=== PATIENT | male | born 1960 | race Caucasian/White ===

== ENCOUNTER 2020-02-20 13:16 | Outpatient (REF) | payer OTHER, SELFPAY ==
--- NOTE | 2020-02-20 13:24 | MR_ITS ---
EXAMINATION: MR SHOULDER WITH CONTRAST, LEFT CLINICAL INFORMATION: History of prior surgery in 2018. Status post multiple intra-articular steroid injections. Left shoulder pain with limited range of motion. COMPARISON: Left shoulder radiograph dated October 10, 2019. TECHNIQUE: MRI of the shoulder was performed following the intra-articular administration of a dilute gadolinium-containing solution (arthrogram) on a high-field scanner. FINDINGS: Rotator cuff: Metallic/susceptibility artifact from prior surgical intervention around the shoulder is noted. Within this limitation, there is apparent low-grade intrasubstance tearing at the footprint of the supraspinatus extending from the leading edge fibers (8:7-11/20) to the supraspinatus/infraspinatus junction. Subscapularis and teres minors tendons are intact. No rotator cuff muscle atrophy or fatty infiltration is identified. Labrum: Contrast imbibes into the superior labrum extending into the posterior superior labrum (7:10-12/20). Biceps: The long head biceps tendon is positioned within the bicipital groove, with the contour, course, caliber, and signal intensity within normal limits. Ligament/Capsule: No capsular thickening or pericapsular edema. Bone/Cartilage: No Hill Sachs or osseous Bankart lesion is identified. The bone marrow signal intensity is within normal limits. There is moderate grade cartilage loss of the inferior medial aspect humeral head articular cartilage. Mild thinning of the glenoid articular cartilage. Subchondral bone is preserved. Acromioclavicular joint: There is mild acromioclavicular hypertrophy. No subjacent marrow edema. Type II acromial morphology. No associated subacromial osteophyte formation is noted. Susceptibility/metallic artifact around the acromioclavicular joint reflect sequelae of prior acromial decompression. Miscellaneous: Intra-articular contrast distends the glenohumeral joint. No significant amount of subacromial/subdeltoid bursal fluid accumulation. Quadrilateral space, suprascapular notch and spinoglenoid notch are normal in appearance. MR/MR shoulder LT w con IMPRESSION: Left shoulder: 1. Low-grade intrasubstance tear at the footprint of the supraspinatus tendon fibers extending from the leading edge to the supraspinatus/infraspinatus junction. 2. Superior labral tear extending into the posterior superior labrum, SLAP IIB tear. 3. Mild glenohumeral joint chondrosis. 4. Postsurgical changes of acromial decompression. Mild acromioclavicular joint arthrosis. 5. Normal biceps tendon.
--- NOTE | 2020-02-20 13:27 | FL_ITS ---
EXAMINATION: XR ARTHROGRAM SHOULDER, LEFT CLINICAL INFORMATION: Recurrent left shoulder pain following previous surgery. COMPARISON: Left shoulder 10/10/2019 TECHNIQUE: Following explaining fluoroscopy-guided left shoulder injection procedure, benefits and risk, a written consent was obtained. Patient was placed supine on fluoroscopy table and anterior aspect left shoulder was cleaned and draped in usual sterile manner. 1% lidocaine was injected at the puncture site. A 22-gauge spinal needle was then inserted from the skin into the inferior aspect of left lateral joint space and 2 mL of nonionic contrast injected. Following confirmation of contrast in the joint, 0.1 mL of gadolinium was diluted with 10 mL of 1% % lidocaine and and saline combination was injected and needle withdrawn. Complete hemostasis achieved at puncture site. Sterile band aid applied post procedure Patient tolerated procedure extremely well and was sent to MRI for further imaging FINDINGS: On AP view the glenohumeral joint space is maintained. There is iodinated contrast seen within the joint space. The soft tissues are normal. FLUOROSCOPY TIME: 1.4 minutes DOSE AREA PRODUCT: 7.707 uGy-m2 (microgray-meter squared). IMAGES: 3. FL/FL arthrogram shoulder LT IMPRESSION: Successful fluoroscopy-guided left shoulder arthrogram performed with patient sent to MRI for further imaging.
== END 2020-02-20 13:17 | disposition home or self-care (01) ==
LOC: HO.XRAY 13:16
PROVIDERS: Visit Provider Orthopaedic Surgery
DX: M75.42 Impingement syndrome of left shoulder (principal)
CPT/HCPCS: 23350; 73040; 73222

== ENCOUNTER 2020-02-25 08:05 | Outpatient (REF) | payer MEDICAID, SELFPAY ==
--- NOTE | 2020-02-25 08:08 | CT_ITS ---
EXAMINATION: CT CHEST WITHOUT CONTRAST CLINICAL INFORMATION: Follow-up pulmonary nodule COMPARISON: Previous chest CT scans most recent November 2018 TECHNIQUE: Multidetector volumetric CT imaging of the chest was done. Axial MIP volume rendering provided. Sagittal and coronal reformatted images were obtained. This CT examination was performed using dose optimization techniques as appropriate, variously including the following: *Automated exposure control *Adjustment of mA and/or kV according to patient size (this includes techniques or standardized protocols for targeted exams where dose is matched to indication/reason for exam; i.e. extremities or head) *Use of iterative reconstruction technique DLP: 204 mGy-cm FINDINGS: EXECUTIVE ASSISTANT TO GENERAL COUNSEL: Unremarkable LUNGS: There is mild biapical pleural parenchymal scarring that is stable. The small pulmonary nodules are stable. The largest pulmonary nodule is a peripheral or subpleural 4 mm nodule in the apical posterior segment of the left upper lobe axial image 60. No new pulmonary nodule is seen. There is linear scarring or subsegmental atelectasis in the lingula. MEDIASTINUM: There is mild coronary artery calcification. The heart does not appear enlarged. There is no pericardial effusion. The thoracic aorta is normal in caliber. There is shotty mediastinal lymphadenopathy that is stable. No enlarged lymph nodes are seen. The visualized thyroid gland is unremarkable. PLEURA: There is no pleural effusion. No pleural mass or thickening. AXILLA: No lymphadenopathy. UPPER ABDOMEN: There are several low-attenuation liver lesions that are stable, largest measuring 7 to 8 mm. There is diverticulosis of the colon. OSSEOUS STRUCTURES: There are mild degenerative changes of the spine. CT/CT chest wo con IMPRESSION: Stable small pulmonary nodules. Mild coronary artery calcification.
== END 2020-02-25 08:06 | disposition home or self-care (01) ==
LOC: HO.CT 08:05
PROVIDERS: PCP Internal Medicine; Visit Provider Internal Medicine
DX: R91.1 Solitary pulmonary nodule (principal)
CPT/HCPCS: 71250

== ENCOUNTER → 2020-02-27 13:20 | Outpatient (BNVA) | payer MEDICAID, SELFPAY | PROVIDERS: PCP Internal Medicine; Visit Provider Urology | DX: E29.1 Testicular hypofunction (principal) | CPT/HCPCS: 99202 ==

== ENCOUNTER 2020-02-27 14:22 | Outpatient (REF) | payer MEDICAID, SELFPAY ==
[2020-02-27 16:50] LABS: Albumin Level 4.3 g/dL (3.5-5.0)
[2020-02-27 17:19] LABS: Prostate Specific Antigen 2.13 ng/mL (<0.05-4.0)
[2020-02-28 06:17] LABS: Lutenizing Hormone 0.3 mIU/mL (1.5-9.3)
[2020-03-03 22:22] LABS: Estradiol Ultra Sensitive 43 pg/mL (< OR = 29)
[2020-03-04 15:32] LABS: Testosterone, Free 332.3 pg/mL (35.0-155.0); Testosterone, Total 1351 ng/dL (250-1100)
== END 2020-02-27 14:23 | disposition home or self-care (01) ==
LOC: HO.HMGCLDS 14:22
PROVIDERS: PCP Internal Medicine; Visit Provider Urology
DX: E29.1 Testicular hypofunction (principal); Z12.5 Encounter for screening for malignant neoplasm of prostate
CPT/HCPCS: 36415; 82040; 82670; 83002; 84153; 84402; 84403

== ENCOUNTER → 2020-03-18 08:32 | Outpatient (BNVA) | payer MEDICAID, SELFPAY | PROVIDERS: Visit Provider Orthopaedic Surgery | DX: M75.42 Impingement syndrome of left shoulder (principal); S43.432D Superior glenoid labrum lesion of left shoulder, subsequent encounter | CPT/HCPCS: 99212 ==

== ENCOUNTER → 2020-03-19 11:35 | Outpatient (BNVA) | payer MEDICAID, SELFPAY | PROVIDERS: Visit Provider Urology ==

== ENCOUNTER → 2020-05-02 08:44 | Outpatient (BNVA) | payer OTHER, SELFPAY | PROVIDERS: PCP Internal Medicine; Visit Provider Physician Assistant | DX: M75.42 Impingement syndrome of left shoulder (principal) | CPT/HCPCS: 99212 ==

== ENCOUNTER 2020-11-07 15:12 | Outpatient (REF) | payer MEDICAID, SELFPAY ==
[2020-11-07 16:43] LABS: Hematocrit 46.7 % (42-52); Hemoglobin 15.7 g/dl (14.0-18.0); Mean Corpuscular HGB Conc 33.6 g/dl (31.0-36.0); Mean Corpuscular Hemoglobin 32.3 pg (27.0-33.0); Mean Corpuscular Volume 96.1 fL (80-98); Mean Platelet Volume 9.5 fL (9.4-12.4); Platelet Count 305 X10*3/uL (160-400); Red Blood Count 4.86 X10*6/uL (4.60-5.80); Red Cell Distribution Width 13.3 % (11.0-16.0); White Blood Count 7.7 X10*3/uL (4.8-10.8)
[2020-11-07 17:20] LABS: Prostate Specific Antigen 2.25 ng/mL (<0.05-4.0)
[2020-11-13 12:22] LABS: Testosterone, Total 500 ng/dL (250-1100)
[2020-11-13 19:17] LABS: Testosterone, Free 110.2 pg/mL (35.0-155.0); Testosterone, Total 510 ng/dL (250-1100)
== END 2020-11-07 15:13 | disposition home or self-care (01) ==
LOC: HO.HMGCLDS 15:12
PROVIDERS: PCP Internal Medicine; Visit Provider Urology
DX: Z12.5 Encounter for screening for malignant neoplasm of prostate (principal); E29.1 Testicular hypofunction; N13.8 Other obstructive and reflux uropathy; N40.1 Benign prostatic hyperplasia with lower urinary tract symptoms
CPT/HCPCS: 36415; 84153; 84402; 84403; 85027

== ENCOUNTER → 2020-11-27 11:52 | Outpatient (BNVA) | payer MEDICAID, SELFPAY | PROVIDERS: PCP Internal Medicine; Visit Provider Urology ==

== ENCOUNTER 2021-01-29 07:36 | Outpatient (REF) | payer MEDICAID, SELFPAY ==
[2021-01-29 07:56] LABS: Hematocrit 47.2 % (42.0-52.0); Hemoglobin 15.7 g/dl (14.0-18.0); Mean Corpuscular HGB Conc 33.3 g/dl (31.0-36.0); Mean Corpuscular Hemoglobin 31.8 pg (27.0-33.0); Mean Corpuscular Volume 95.7 fL (80.0-98.0); Mean Platelet Volume 8.6 fL (9.4-12.4); Platelet Count 301 X10*3/uL (160-400); Red Blood Count 4.93 X10*6/uL (4.60-5.80); Red Cell Distribution Width 12.5 % (11.0-16.0); White Blood Count 8.4 X10*3/uL (4.8-10.8)
[2021-02-01 20:41] LABS: Estradiol Ultra Sensitive 50 pg/mL (< OR = 29)
[2021-02-05 15:36] LABS: Testosterone, Free 253.4 pg/mL (35.0-155.0); Testosterone, Total 971 ng/dL (250-1100)
== END 2021-01-29 07:37 | disposition home or self-care (01) ==
LOC: HO.LAB 07:36
PROVIDERS: PCP Internal Medicine; Visit Provider Urology
DX: E29.1 Testicular hypofunction (principal)
CPT/HCPCS: 36415; 82670; 84402; 84403; 85027

== ENCOUNTER → 2021-02-03 14:53 | Outpatient (BNVA) | payer MEDICAID, SELFPAY | PROVIDERS: PCP Internal Medicine; Visit Provider Urology ==

== ENCOUNTER → 2021-02-12 08:54 | Outpatient (BNVA) | payer MEDICAID, SELFPAY | PROVIDERS: PCP Internal Medicine ==

== ENCOUNTER 2021-02-17 08:31 | Outpatient (REF) | payer MEDICAID, SELFPAY ==
--- NOTE | ~2021-02-17 | CT_ITS ---
EXAMINATION: CT CHEST WITHOUT CONTRAST CLINICAL INFORMATION: Follow-up pulmonary nodule. COMPARISON: Previous chest CT most recent February 2020. TECHNIQUE: Axial images through the chest without contrast. Sagittal and coronal reconstructions on the technologist workstation were performed. This CT examination was performed using dose optimization techniques as appropriate, variously including the following: *Automated exposure control *Adjustment of mA and/or kV according to patient size (this includes techniques or standardized protocols for targeted exams where dose is matched to indication/reason for exam; i.e. extremities or head) *Use of iterative reconstruction technique DLP: 209 mGy-cm FINDINGS: ASSISTANT SUPERINTENDENT: Unremarkable. LUNGS: There is mild biapical pleural parenchymal scarring that is stable. There is evidence of mild paraseptal emphysema. Small pulmonary nodules are stable. Largest pulmonary nodule measures 4 mm in the peripheral or subpleural left upper lobe axial image 75 series 5. MEDIASTINUM: There are small mediastinal lymph nodes that are stable. There is mild coronary artery calcification. The mediastinum is otherwise normal. PLEURA: There is no pleural effusion. No pleural mass or thickening. AXILLA: No lymphadenopathy. UPPER ABDOMEN: There are several small subcentimeter low-attenuation liver lesions that are stable. There may be diverticulosis of the colon. OSSEOUS STRUCTURES: There are degenerative changes of the spine. CT/CT chest wo con IMPRESSION: Stable small pulmonary nodules. Mild emphysema. Fleischner guidelines were followed.
== END 2021-02-17 08:32 | disposition home or self-care (01) ==
LOC: HO.CT 08:31
PROVIDERS: PCP Internal Medicine; Visit Provider Internal Medicine
DX: R91.1 Solitary pulmonary nodule (principal)
CPT/HCPCS: 71250

== ENCOUNTER → 2021-05-13 12:58 | Outpatient (BNVA) | payer MEDICAID, SELFPAY | PROVIDERS: PCP Internal Medicine; Visit Provider Urology | DX: Z13.89 Encounter for screening for other disorder (principal) ==

== ENCOUNTER 2021-08-07 10:48 | Outpatient (REF) | payer MEDICAID, SELFPAY ==
[2021-08-07 12:25] LABS: Hematocrit 46.5 % (42.0-52.0)
[2021-08-07 13:12] LABS: Prostate Specific Antigen 2.93 ng/mL (<0.05-4.0)
[2021-08-12 12:07] LABS: Testosterone, Total 781 ng/dL (250-1100)
== END 2021-08-07 10:49 | disposition home or self-care (01) ==
LOC: HO.LAB 10:48
PROVIDERS: PCP Internal Medicine; Visit Provider Urology
DX: Z12.5 Encounter for screening for malignant neoplasm of prostate (principal); E29.1 Testicular hypofunction; N13.8 Other obstructive and reflux uropathy; N40.1 Benign prostatic hyperplasia with lower urinary tract symptoms
CPT/HCPCS: 36415; 84153; 84403; 85014

== ENCOUNTER 2021-12-21 11:12 | Outpatient (REF) | payer MEDICAID, SELFPAY ==
--- NOTE | ~2021-12-21 | XR_ITS ---
EXAMINATION: XR HIP, LEFT CLINICAL INFORMATION: Left hip pain status post injury. COMPARISON: None TECHNIQUE: Two views of the left hip. FINDINGS: Subtle deformity in the left subcapital femoral neck is seen. The left hip joint and left hemipelvis are intact. The soft tissues are unremarkable. XR/XR hip LT min 2V IMPRESSION: Subtle deformity in the left subcapital femoral neck. This could be projectional, but acute, nondisplaced subcapital femoral neck fracture cannot be completely excluded. If suspicion for acute fracture remains high, short-term repeat left hip radiographs are recommended to assess for change as indicated.
== END 2021-12-21 11:13 | disposition home or self-care (01) ==
LOC: HO.HMGCX 11:12
PROVIDERS: PCP Internal Medicine; Visit Provider Internal Medicine
DX: M25.552 Pain in left hip (principal)
CPT/HCPCS: 73502

== ENCOUNTER 2021-12-22 07:34 | Outpatient (REF) | payer MEDICAID, SELFPAY ==
--- NOTE | ~2021-12-22 | CT_ITS ---
EXAMINATION: CT HIP WITHOUT CONTRAST, LEFT CLINICAL INFORMATION: Pain. Question fracture. COMPARISON: Left hip radiographs dated 12/21/2021. TECHNIQUE: Contiguous axial CT images of the left hip were obtained without contrast. Multiplanar reformats were provided and reviewed. This CT examination was performed using dose optimization techniques as appropriate, variously including the following: *Automated exposure control *Adjustment of mA and/or kV according to patient size (this includes techniques or standardized protocols for targeted exams where dose is matched to indication/reason for exam; i.e. extremities or head) *Use of iterative reconstruction technique DLP: 315 mGy-cm FINDINGS: No acute fracture or dislocation. No significant joint space narrowing. Tiny marginal osteophytes. No concerning lytic or blastic osseous lesion. Degenerative cystic change adjacent to the left sacroiliac joint. Mild subcutaneous stranding anterior to the left hip which could represent a soft tissue contusion. No abnormal soft tissue mass or fluid collection. Sigmoid diverticulosis without evidence of acute diverticulitis. Otherwise, the visualized intrapelvic structures are unremarkable. No large left hip joint effusion. The visualized muscles and tendons are grossly intact. CT/CT hip LT wo IV con IMPRESSION: 1. No acute fracture or dislocation. 2. Mild left hip arthrosis. 3. Mild subcutaneous stranding anterior to the left hip which could represent a soft tissue contusion. No hematoma formation. 4. Diverticulosis without evidence of acute diverticulitis.
== END 2021-12-22 07:35 | disposition home or self-care (01) ==
LOC: HO.CT 07:34
PROVIDERS: PCP Internal Medicine; Visit Provider Internal Medicine
DX: R22.31 Localized swelling, mass and lump, right upper limb (principal)
CPT/HCPCS: 73700

== ENCOUNTER 2022-02-04 11:22 | Outpatient (REF) | payer MEDICAID, SELFPAY ==
[2022-02-04 14:31] LABS: Hematocrit 44.9 % (42.0-52.0); Hemoglobin 14.8 g/dl (14.0-18.0); Mean Corpuscular Hemoglobin 31.8 pg (27.0-33.0); Mean Corpuscular Volume 96.6 fL (80.0-98.0); Mean Platelet Volume 9.4 fL (9.4-12.4); Platelet Count 283 X10*3/uL (160-400); Red Blood Count 4.65 X10*6/uL (4.60-5.80); Red Cell Distribution Width 13.2 % (11.0-16.0); White Blood Count 7.5 X10*3/uL (4.8-10.8)
[2022-02-04 14:52] LABS: Prostate Specific Antigen 2.72 ng/mL (<0.05-4.0)
[2022-02-10 12:29] LABS: Testosterone, Total 739 ng/dL (250-1100)
== END 2022-02-04 11:23 | disposition home or self-care (01) ==
LOC: HO.HMGCLDS 11:22
PROVIDERS: PCP Internal Medicine; Visit Provider Urology
DX: E29.1 Testicular hypofunction (principal)
CPT/HCPCS: 36415; 84153; 84403; 85027

== ENCOUNTER → 2022-02-19 08:19 | Outpatient (BNVA) | payer MEDICAID, SELFPAY | PROVIDERS: PCP Internal Medicine; Visit Provider Urology | DX: Z13.89 Encounter for screening for other disorder (principal) ==

== ENCOUNTER 2022-07-30 10:13 | Outpatient (REF) | payer MEDICAID, SELFPAY ==
[2022-08-02 20:24] LABS: TS Negative Control Passed; TS Panel A 0; TS Panel B 0; TS Positive Control Passed; TSpotTB Negative (Negative)
== END 2022-07-30 10:14 | disposition home or self-care (01) ==
LOC: HO.HMGCLDS 10:13
PROVIDERS: PCP Internal Medicine; Visit Provider Internal Medicine
DX: Z11.1 Encounter for screening for respiratory tuberculosis (principal)
CPT/HCPCS: 36415; 86481

== ENCOUNTER 2022-08-26 13:11 | Outpatient (REF) | payer MEDICAID, SELFPAY ==
[2022-08-26 16:52] LABS: Hematocrit 41.6 % (42.0-52.0); Mean Corpuscular HGB Conc 33.7 g/dl (31.0-36.0); Mean Corpuscular Hemoglobin 31.2 pg (27.0-33.0); Mean Corpuscular Volume 92.7 fL (80.0-98.0); Mean Platelet Volume 9.4 fL (9.4-12.4); Platelet Count 268 X10*3/uL (160-400); Red Blood Count 4.49 X10*6/uL (4.60-5.80); Red Cell Distribution Width 13.3 % (11.0-16.0); White Blood Count 6.2 X10*3/uL (4.8-10.8)
[2022-08-26 17:16] LABS: Prostate Specific Antigen 2.57 ng/mL (<0.05-4.0)
[2022-09-01 13:18] LABS: Testosterone, Total 794 ng/dL (250-1100)
== END 2022-08-26 13:12 | disposition home or self-care (01) ==
LOC: HO.HMGCLDS 13:11
PROVIDERS: PCP Internal Medicine; Visit Provider Urology
DX: Z12.5 Encounter for screening for malignant neoplasm of prostate (principal); E29.1 Testicular hypofunction
CPT/HCPCS: 36415; 84153; 84403; 85027

== ENCOUNTER 2022-09-08 08:10 | Outpatient (AMB) | payer MEDICAID, SELFPAY ==
--- NOTE | 2022-09-08 08:11 | A.OFFVIS_ITS ---
Intake Intake Visit Reasons: 6M CBC/PSA/Testo(set) Intake Note: Patient is present for Telephone LABS Urology Med: Sildenafil, Testosterone Antibiotic Allergy: none Blood Thinner: None Allergies No Known Allergies Allergy (Verified 09/08/22 08:12) seasonal Allergy (Unknown, Uncoded 09/08/22 08:12) unknown HPI HPI Comments History of Present Illness0 Details Logan is a male. He is a patient of Dr. Daniel. He is seen for the following urologic conditions - hypogonadism - erectile dysfunction Telemedicine evaluation 15 minute consultation [employer] suzanne Video attempted Six month review Lab work in range 6 month f/u Hypogonadism He presents today for further evaluation of complaints regarding hypogonadism - on treatment from his PCP Initial symptoms include erectile dysfunction Yes decreased libido Yes change in mood/depression Yes in muscle size/strength Yes increased fatigue/malaise Yes increased abdominal fat No tender breasts/gynecomastia No hair loss No osteopenia No The onset of symptoms has been gradual lb longstanding Erectile status nocturnal erections do occur but uses Viagra to supplement Associate conditions include chronic pain with opioid use No obstructive sleep apnea No CAD No diabetes No dyslipidemia No hypertension No obesity No stress - financial, family, employment No heavy alcohol or illicit drug use No He has been taking - none Laboratory results 02/02 T 2130 with LH 0.3 - 03/06 T 1300, LH 0.3, 11/04 T 510 F 110 P 2.2, 02/03 971 P 2.2, 08/05 781 2.9 46, 02/04 739, 09/05 794 2.6 Current therapy includes injectable injectable testosterone - 12/04 0.75 cc weekly, Tuesday Labs Response to therapy has been improved baseline symptoms Prior therapy includes injectable testosterone PFSH Medical History CKD (chronic kidney disease) stage 2, GFR 60-89 ml/min COPD (chronic obstructive pulmonary disease) History of meningitis Hypertension Hypogonadism in male Migraine PVC's (premature ventricular contractions) Surgical History History of repair of left rotator cuff History of shoulder surgery Hx of colonoscopy Family History Father Liver disease Mother HTN (hypertension) Heavy smoker Heart disease Social History Current occupational status: employed Current occupation: [employer] Review of Systems Const All systems reviewed & are unremarkable except as noted in HPI and below Reports no additional complaints Resp Reports no additional complaints GI Reports no additional complaints Reports as per HPI Musc Reports no additional complaints Physical Exam Telemedicine evaluation Appropriate responses Regular breathing rate and rhythm HEENT Head: Yes normal to inspection Ears: hearing grossly normal bilaterally Eyes General: appearance normal, both eyes and all related structures Neck Neck: Yes normal visual inspection Chest Chest palpation & inspection: normal inspection of the chest Resp Effort & Inspection: normal respiratory effort and able to speak in complete sentences Assessment & Plan Assessment & Plan (1) Erectile dysfunction due to arterial insufficiency: Code(s): N52.01 - Erectile dysfunction due to arterial insufficiency (2) Hypogonadism in male: Code(s): E29.1 - Testicular hypofunction Plan Six month follow-up lab work office visit Orders: Orders Prostate Specific Antigen 6 Months E29.1 - Testicular hypofunction Testosterone, Total 6 Months E29.1 - Testicular hypofunction Complete Blood Count no Diff 6 Months E29.1 - Testicular hypofunction Medications: Refilled testosterone cypionate (Depo-Testosterone) 140 mg (0.7 mL) subcut QWEEK 30 days 4 mL 5RF Patient Instructions: Imaging studies, laboratory and physical exam results were discussed and reviewed in detail. No major barriers to patient understanding were identified. An opportunity to ask questions regarding the treatment plan was provided. All questions were answered. The patient expressed understanding and agreement with the above treatment plan. The patient is aware they should contact our office by phone for worsening of their current condition or the appearance of new urologic symptoms. Compliance is encouraged with any medications and followup testing that is ordered. It is a privilege to participate in the urologic care of your patient. If you have any questions or concerns regarding treatment for the above conditions, or other urologic issues, please do not hesitate to contact me. The office telephone contact is [phone]. This note is constructed using voice recognition software. While every effort h as been made to ensure accuracy back tender pulp drier errors may have been included. Yours sincerely, Dr Diego Kennedy MD, [facility] - Urology Providers of Expert, Compassionate Care for the Genitourinary System Telehealth Telehealth Location of provider rendering services: practice address Location of patient: address on file Patient Identification confirmed using: Name, : Yes Telehealth method: video Patient verbally consented to treatment: Yes Patient verbally consented to billing insurance company: Yes Patient informed of any privacy concerns related to visit: Yes Coding Level of Care Code Tele Est Pt Level 3 (68052) Diagnoses Erectile dysfunction due to arterial insufficiency N52.01 Hypogonadism in male E29.1
== END 2022-09-08 09:07 | disposition home or self-care (01) ==
LOC: HO.HUSH 08:10
PROVIDERS: PCP Internal Medicine; Visit Provider Urology
DX: N52.01 Erectile dysfunction due to arterial insufficiency (principal); E29.1 Testicular hypofunction
CPT/HCPCS: 99213

== ENCOUNTER → 2022-09-08 08:10 | Outpatient (BNVA) | payer MEDICAID, SELFPAY | PROVIDERS: PCP Internal Medicine; Visit Provider Urology ==

== ENCOUNTER 2023-02-04 09:43 | Outpatient (AMB) | payer MEDICAID, SELFPAY ==
--- NOTE | 2023-02-04 10:03 | MHC.OFFVIS ---
Intake Intake Visit Reasons: LDCT [place] Allergies No Known Allergies Allergy (Verified 12/02/22 08:36) seasonal Allergy (Unknown, Uncoded 12/02/22 08:36) unknown Tobacco/Smoking Status Tobacco use type: Cigarette Cigarette Packs Per Day: 1 Years smoked: 37, smoked 1-1.5 ppd, quit 13 years prior Packs Per Year: 0 HPI HPI Comments History of Present Illness Details Logan is a pleasant 62 year old male, former smoker with a 49 PYH, quit 13 years ago. Patient has been smoking since age 16 for 33 years at 1- 1.5 ppd. Denies marijuana use. 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 Denies known family history of lung cancer. Denies personal history of cancers. Denies chest CT in last year. Last chest CT from 02/2021 revealed stable small pulmonary nodules and mild emphysema. Denies recent travel outside the [place]. Admits testing positive for COVID. Denies receiving COVID Vaccine. Denies fever, chills, chest pain, new cough, hemoptysis or unintentional weight loss. Lung Cancer Screening Questionnaire reviewed with patient by provider. Shared Decision Making Completed. Discussed in detail with patient, the risk versus benefit of LDCT screening. Patient in agreement of proceeding with scan. [facility] Medical History CKD (chronic kidney disease) stage 2, GFR 60-89 ml/min Hypertension PVC's (premature ventricular contractions) COPD (chronic obstructive pulmonary disease) History of meningitis Migraine Hypogonadism in male Surgical History (Updated 12/30/22 @ 12:51 by Petra Arora PA-C) History of colonoscopy History of repair of left rotator cuff History of repair of right rotator cuff Family History Father Liver disease Mother HTN (hypertension) Heavy smoker Heart disease Social History (System 12/02/22 @ 08:36 by Vijaya Farrar) Tobacco use type: Cigarette Cigarette Packs Per Day: 1 Years Smoked: 37, smoked 1-1.5 ppd, quit 13 years prior Current occupational status: employed Current occupation: [employer] Assessment & Plan Assessment & Plan (1) Personal history of tobacco use: Code(s): Z87.891 - Personal history of nicotine dependence Plan Shared decision-making visit completed today in office. This patient meets criteria for LDCT for lung cancer screening purposes and is asymptomatic. Offered smoking cessation. Patient has been scheduled for a low dose chest CT for screening purposes at [facility]. We discussed how the results will be obtained depending on CT findings. RADS 1 and RADS 2 will receive a letter with results and will follow up for annual LDCT. Patient informed they will be contacted at later date to schedule upcoming LDCT scan. RADS 3 and RADS 4 will receive a telephone call, or an office visit after reviewing case at our Lung Cancer Conference to determine when the next LDCT will be scheduled or further interventions that may be needed. Discussed importance of screening program and compliance with yearly LDCT scan as scheduled. Risks, benefits, and alternatives were discussed in detail and patient agrees to proceed. Risks discussed include but are not limited to: radiation exposure and possibility of additional intervention for benign disease. Benefits include detection of lung cancer at an early stage. A copy of today's visit and LDCT results will be sent to patient's PCP. Incidental findings on LDCT are PCP's responsibility. If there are incidental findings, our office will ensure that PCP office is aware of these findings. All questions were answered and patient is in agreement of plan. Coding Level of Care Code Lung Cancer Screening G0296 Diagnoses Personal history of tobacco use Z87.891
== END 2023-02-04 11:02 | disposition home or self-care (01) ==
PROVIDERS: PCP Internal Medicine; Visit Provider Nurse Practitioner Family
DX: Z87.891 Personal history of nicotine dependence (principal)
CPT/HCPCS: G0296

== ENCOUNTER 2023-02-04 10:15 | Outpatient (REF) | payer MEDICAID, SELFPAY | END 2023-02-04 10:16 | disposition home or self-care (01) | LOC: HO.CT 10:15 | PROVIDERS: PCP Internal Medicine; Visit Provider Nurse Practitioner Family | DX: Z12.2 Encounter for screening for malignant neoplasm of respiratory organs (principal); Z87.891 Personal history of nicotine dependence | CPT/HCPCS: 71271; G0296 ==

== ENCOUNTER → 2023-02-25 12:36 | Outpatient (REF) | payer MEDICAID, SELFPAY ==
--- NOTE | 2023-02-25 12:38 | CA_ITS ---
Transthoracic Echocardiogram Patient (Last, First, Middle): Logan Boland, Gender: Male Date of : 1960 Age: 62 Procedure Date: 02/25/2023 Procedure Type: Transthoracic Echocardiogram Location: OP Height: 180.34 cm Weight: 95.26 kg BSA: 2.15 m2 Heart Rate: bpm BP: 156 / 70 mmHg Park Interpretive Specialist: TO Referring MD: Eduardo Daniel MD Vessel Captain: Slava Garrido MD Symptoms: [facility] Study Quality: Fair ECG Rhythm: Sinus Conclusions: - 1. Normal LV ejection fraction of 55-60% with impaired relaxation filling pattern 2. Calcific aortic valve changes noted with normal cardiac valvular Doppler 3. No gross pericardial effusion 4. Upper limits of normal ascending aortic size Findings Left Ventricle Normal left ventricular size, thickness, and systolic function. The visually estimated ejection fraction is between 55-60%. Spectral Doppler is indicative of an impaired relaxation filling pattern. Peak GLS is -13.1%, which is moderately reduced. Right Ventricle Normal right ventricular cavity size and systolic function. Atria The left atrium is likely dilated. There is no evidence of interatrial shunt. The right atrium is normal in size. Aortic Valve There is mild calcification of the aortic valve. There is no aortic valve stenosis. The peak aortic gradient is 9 mmHg.The mean gradient is 4 mmHg. There is no aortic valve regurgitation. Mitral Valve Normal mitral valve structure and function. There is trace mitral valve regurgitation. There is no mitral valve stenosis. Pulmonic Valve The pulmonic valve is likely normal. Tricuspid Valve Normal tricuspid valve structure. Tricuspid regurgitation envelope is inadequate for calculation of right ventricular systolic pressure. Normal right atrial pressure. Great Vessels The pulmonary artery was not well visualized. Venous The inferior vena cava is normal in size and collapses greater than 50% with inspiration. Pericardium/Pleural There is no evidence of pericardial effusion. Measurements 2D Linear Measurements IVSd: 1.23 0.6-0.9/0.6-1.0 cm LVIDd: 4.71 3.9-5.3/4.2-5.9 cm LVIDd Index: 2.19 2.4-3.2/2.2-3.1 cm/m2 LVIDs: 3.13 2.0-3.6 cm LVPWd: 1.22 0.7-1.1 cm LA Diam: 4.10 2.7-3.8/3.0-4.0 cm LAIDs Index: 1.91 1.5-2.3 cm/m2 LV Mass: 319.64 67-162/88-224 g LV Mass Index: 148.67 43-95/49-115 g/m2 LVOT Diam: 2.40 3.0+(-)1.3 cm 2D Systolic Function EF 4C: 61.00 >55% EF 2C: 55.00 >55% EF BiP: 58.20 >55% Mitral Valve MV Pk E: 0.63 MV PK A: 0.65 MV Decel Time: 177.00 E/A: 1.00 E'Lateral: 5.77 E'Medial: 5.44 E/E' Med: 11.50 E/E' Lat: 10.80 PHT: 52.00 MVA PHT: 4.23 Decel [place]: 3.53 Aortic Valve AoV Pk Er[place]: 1.51 AoV Mn Erwin: 0.91 AoV VTI: 0.26 AoV Pk Grad: 9.00 Aov Mn Grad: 4.00 ELLIOTT Cont.VTI: 3.60 LVOT LVOT Pk [place]: 1.10 LVOT Mn Erwin: 0.75 LVOT VTI: 0.20 LVOT Pk Grad: 5.00 LVOT Mn Grad: 3.00 LVOT Diam: 2.40 LVOT Area: 4.52 Diastolic Function MV Pk E: 0.63 MV Pk A: 0.65 E/A: 1.00 E'Medial: 5.44 E/E' Med: 11.50 E' Laterial: 5.77 E/E' Lat: 10.80 Right Ventricle TAPSE (mm): 25.60 TVS' Erwin: 16.90 Great Vessels Aorta Sinus of Valsalva: 3.62 2.0-3.5 cm Ao Asc: 3.50 2.1-3.4 cm Ao Arch: 3.20 Updated in Other Vendor System with Status of Final Slava Garrido MD electronically signed on 02/25/2023 4:07:11 PM with status of Final
== END ==
LOC: HO.CARD 12:36
PROVIDERS: PCP Internal Medicine; Visit Provider Internal Medicine
DX: Z13.89 Encounter for screening for other disorder (principal)
CPT/HCPCS: 93306; 93356

== ENCOUNTER → 2023-02-25 12:38 | Outpatient (BNV) | payer MEDICAID, SELFPAY | PROVIDERS: PCP Internal Medicine; Visit Provider Internal Medicine Cardiovascular Disease | DX: R01.1 Cardiac murmur, unspecified (principal) | CPT/HCPCS: 93306 ==

== ENCOUNTER 2023-03-03 11:00 | Outpatient (REF) | payer MEDICAID, SELFPAY ==
[2023-03-03 13:29] LABS: Hematocrit 43.6 % (42.0-52.0); Hemoglobin 14.5 g/dl (14.0-18.0); Mean Corpuscular HGB Conc 33.3 g/dl (31.0-36.0); Mean Corpuscular Hemoglobin 30.3 pg (27.0-33.0); Mean Corpuscular Volume 91.2 fL (80.0-98.0); Mean Platelet Volume 9.3 fL (9.4-12.4); Platelet Count 271 X10*3/uL (160-400); Red Blood Count 4.78 X10*6/uL (4.60-5.80); Red Cell Distribution Width 14.2 % (11.0-16.0); White Blood Count 6.9 X10*3/uL (4.8-10.8)
[2023-03-03 14:03] LABS: Prostate Specific Antigen 4.48 ng/mL (<0.05-4.0)
[2023-03-07 13:59] LABS: Testosterone, Total 1234 ng/dL (250-1100)
== END 2023-03-03 11:01 | disposition home or self-care (01) ==
LOC: HO.HMGCLDS 11:00
PROVIDERS: PCP Internal Medicine; Visit Provider Urology
DX: E29.1 Testicular hypofunction (principal)
CPT/HCPCS: 36415; 84153; 84403; 85027

== ENCOUNTER 2023-03-15 09:57 | Outpatient (AMB) | payer MEDICAID, SELFPAY ==
--- NOTE | 2023-03-15 09:59 | A.OFFVIS_ITS ---
Intake Intake Visit Reasons: 6M Psa/Testosterone(set) Intake Note: Patient presents today for a follow-up on: PSA/ Testosterone Meds- Sildenafil, Testosterone Cypionate Allergies to Antibiotic- No Known Allergies Blood Thinner- Aspirin Hide Buffer Required: No Allergies No Known Allergies Allergy (Verified 03/15/23 10:02) seasonal Allergy (Unknown, Uncoded 03/15/23 10:02) unknown Medication List - Last Reconciled 03/15/23 by Diego Kennedy MD aspirin (Ecotrin Low Strength) 81 mg PO DAILY budesonide ER 3 mg PO DAILY lisinopril 5 mg PO DAILY lorazepam 1 tab PO BEDTIME omega-3 fatty acids (Fish Oil Concentrate) 1,000 mg PO DAILY pravastatin 1 tab PO DAILY sildenafil 100 mg PO DAILY PRN 30 days syringe with needle (BD Integra Syringe) As directed- 4/month testosterone cypionate (Depo-Testosterone) 140 mg (0.7 mL) subcut QWEEK 30 days Xyosted (testosterone enanthate) 75 mg (0.5 mL) subcut QWEEK NS HPI HPI Comments History of Present Illness Details Logan is a male. He is a patient of Dr. Daniel. He is seen for the following urologic conditions - hypogonadism - erectile dysfunction Telemedicine evaluation 15 minute consultation [id number] suzanne Video attempted Six month review Lab work high - having large variation between peak and trough Should consider different formulation for dosing testosterone ethanate Testosterone cyponaite causing high peaks Will trial xyosted - which has tight a dosing Hypogonadism He presents today for further evaluation of complaints regarding hypogonadism - on treatment from his PCP Initial symptoms include erectile dysfunction Yes decreased libido Yes change in mood/depression Yes in muscle size/strength Yes increased fatigue/malaise Yes increased abdominal fat No tender breasts/gynecomastia No hair loss No osteopenia No The onset of symptoms has been gradual lb longstanding Erectile status nocturnal erections do occur but uses Viagra to supplement Associate conditions include chronic pain with opioid use No obstructive sleep apnea No CAD No diabetes No dyslipidemia No hypertension No obesity No stress - financial, family, employment No heavy alcohol or illicit drug use No He has been taking - none Laboratory results 02/02 T 2130 with LH 0.3 - 03/06 T 1300, LH 0.3, 11/04 T 510 F 110 P 2.2, 02/03 971 P 2.2, 08/05 781 2.9 46, 02/04 739, 09/05 794 2.6, 03/09 1230 4.5 (Tuesday injection, labs) Current therapy includes injectable injectable testosterone - 12/04 0.75 cc weekly Tuesday Labs Response to therapy has been improved baseline symptoms Prior therapy includes injectable testosterone PFSH Medical History CKD (chronic kidney disease) stage 2, GFR 60-89 ml/min Hypertension PVC's (premature ventricular contractions) COPD (chronic obstructive pulmonary disease) History of meningitis Migraine Hypogonadism in male Surgical History History of colonoscopy History of repair of left rotator cuff History of repair of right rotator cuff Family History Father Liver disease Mother HTN (hypertension) Heavy smoker Heart disease Social History Tobacco use type: Cigarette Cigarette Packs Per Day: 1 Years Smoked: 37, smoked 1-1.5 ppd, quit 13 years prior Current occupational status: employed Current occupation: [employer] Review of Systems Const All systems reviewed & are unremarkable except as noted in HPI and below Reports no additional complaints Resp Reports no additional complaints GI Reports no additional complaints Reports as per HPI Musc Reports no additional complaints Physical Exam Telemedicine evaluation Appropriate responses Regular breathing rate and rhythm HEENT Head: Yes normal to inspection Ears: hearing grossly normal bilaterally Eyes General: appearance normal, both eyes and all related structures Neck Neck: Yes normal visual inspection Chest Chest palpation & inspection: normal inspection of the chest Resp Effort & Inspection: normal respiratory effort and able to speak in complete sentences Assessment & Plan Assessment & Plan (1) Erectile dysfunction due to arterial insufficiency: Code(s): N52.01 - Erectile dysfunction due to arterial insufficiency (2) Hypogonadism in male: Code(s): E29.1 - Testicular hypofunction Plan Six-month follow-up labs Orders: Orders Prostate Specific Antigen 1 Month E29.1 - Testicular hypofunction Testosterone, Free/Total 1 Month R68.82 - Decreased libido, E29.1 - Testicular hypofunction Estradiol Ultra Sensitive 1 Month E29.1 - Testicular hypofunction Medications: New Xyosted (testosterone enanthate) 75 mg (0.5 mL) subcut QWEEK 2 mL 0RF NS E29.1 - Testicular hypofunction Patient Instructions: Imaging studies, laboratory and physical exam results were discussed and reviewe d in detail. No major barriers to patient understanding were identified. An opportunity to ask questions regarding the treatment plan was provided. All questions were answered. The patient expressed understanding and agreement with the above treatment plan. The patient is aware they should contact our office by phone for worsening of their current condition or the appearance of new urologic symptoms. Compliance is encouraged with any medications and followup testing that is ordered. It is a privilege to participate in the urologic care of your patient. If you have any questions or concerns regarding treatment for the above conditions, or other urologic issues, please do not hesitate to contact me. The office telephone contact is [phone]. This note is constructed using voice recognition software. While every effort has been made to ensure accuracy food service team member errors may have been included. Yours sincerely, Dr Diego Kennedy MD, [facility] - Urology Providers of Expert, Compassionate Care for the Genitourinary System Telehealth Telehealth Location of provider rendering services: practice address Location of patient: address on file Patient Identification confirmed using: Name, : Yes Telehealth method: video Patient verbally consented to treatment: Yes Patient verbally consented to billing insurance company: Yes Patient informed of any privacy concerns related to visit: Yes Coding Level of Care Code Tele Est Pt Level 4 (64378) Diagnoses Erectile dysfunction due to arterial insufficiency N52.01 Hypogonadism in male E29.1
== END 2023-03-15 10:53 | disposition home or self-care (01) ==
LOC: HO.HUSH 09:57
PROVIDERS: PCP Internal Medicine; Visit Provider Urology
DX: N52.01 Erectile dysfunction due to arterial insufficiency (principal); E29.1 Testicular hypofunction
CPT/HCPCS: 99214

== ENCOUNTER → 2023-03-15 09:57 | Outpatient (BNVA) | payer MEDICAID, SELFPAY | PROVIDERS: PCP Internal Medicine; Visit Provider Urology ==

== ENCOUNTER 2023-04-28 09:18 | Outpatient (REF) | payer MEDICAID, SELFPAY ==
[2023-04-28 12:49] LABS: Prostate Specific Antigen 3.29 ng/mL (<0.05-4.0)
[2023-05-04 11:58] LABS: Testosterone, Free 7.2 pg/mL (35.0-155.0); Testosterone, Total 38 ng/dL (250-1100)
[2023-05-04 22:08] LABS: Estradiol Ultra Sensitive 4 pg/mL (< OR = 29)
== END 2023-04-28 09:19 | disposition home or self-care (01) ==
LOC: HO.HMGCLDS 09:18
PROVIDERS: PCP Internal Medicine; Visit Provider Urology
DX: E29.1 Testicular hypofunction (principal); N52.01 Erectile dysfunction due to arterial insufficiency
CPT/HCPCS: 36415; 82670; 84153; 84402; 84403

== ENCOUNTER 2023-05-06 10:59 | Outpatient (AMB) | payer MEDICAID, SELFPAY ==
--- NOTE | 2023-05-06 11:18 | A.OFFVIS_ITS ---
Intake Intake Visit Reasons: PSA/Testo(pending) Allergies No Known Allergies Allergy (Verified 03/15/23 10:02) seasonal Allergy (Unknown, Uncoded 03/15/23 10:02) unknown Medication List - Last Reconciled 05/06/23 by Diego Kennedy MD aspirin (Ecotrin Low Strength) 81 mg PO DAILY budesonide ER 3 mg PO DAILY lisinopril 5 mg PO DAILY lorazepam 1 tab PO BEDTIME omega-3 fatty acids (Fish Oil Concentrate) 1,000 mg PO DAILY pravastatin 1 tab PO DAILY sildenafil 100 mg PO DAILY PRN 30 days syringe with needle (BD Integra Syringe) As directed- 4/month testosterone cypionate (Depo-Testosterone) 140 mg (0.7 mL) subcut QWEEK 30 days HPI HPI Comments History of Present Illness Details Logan is a male. He is a patient of Dr. Daniel. He is seen for the following urologic conditions - hypogonadism - erectile dysfunction Telemedicine evaluation 15 minute consultation DoxRunTitle suzanne Video attempted Six month review Did not get approved Xyosted Restart Testosterone cyponaite Hypogonadism He presents today for further evaluation of complaints regarding hypogonadism - on treatment from his PCP Initial symptoms include erectile dysfunction Yes decreased libido Yes change in mood/depression Yes in muscle size/strength Yes increased fatigue/malaise Yes increased abdominal fat No tender breasts/gynecomastia No hair loss No osteopenia No The onset of symptoms has been gradual lb longstanding Erectile status nocturnal erections do occur but uses Viagra to supplement He has been taking - none Laboratory results 02/02 T 2130 with LH 0.3 - 03/06 T 1300, LH 0.3, 11/04 T 510 F 110 P 2.2, 02/03 971 P 2.2, 08/05 781 2.9 46, 02/04 739, 09/05 794 2.6, 03/09 1230 4.5 (Tuesday injection, labs), 05/07 38 3.3 44 Current therapy includes injectable injectable testosterone - 12/04 0.75 cc weekly Tuesday Labs Response to therapy has been improved baseline symptoms Prior therapy includes injectable testosterone [facility] Medical History CKD (chronic kidney disease) stage 2, GFR 60-89 ml/min Hypertension PVC's (premature ventricular contractions) COPD (chronic obstructive pulmonary disease) History of meningitis Migraine Hypogonadism in male Surgical History History of colonoscopy History of repair of left rotator cuff History of repair of right rotator cuff Family History Father Liver disease Mother HTN (hypertension) Heavy smoker Heart disease Social History Tobacco use type: Cigarette Cigarette Packs Per Day: 1 Years Smoked: 37, smoked 1-1.5 ppd, quit 13 years prior Current occupational status: employed Current occupation: [employer] Review of Systems Const All systems reviewed & are unremarkable except as noted in HPI and below Reports no additional complaints Resp Reports no additional complaints GI Reports no additional complaints Reports as per HPI Musc Reports no additional complaints Physical Exam Telemedicine evaluation Appropriate responses Regular breathing rate and rhythm HEENT Head: Yes normal to inspection Ears: hearing grossly normal bilaterally Eyes General: appearance normal, both eyes and all related structures Neck Neck: Yes normal visual inspection Chest Chest palpation & inspection: normal inspection of the chest Resp Effort & Inspection: normal respiratory effort and able to speak in complete sentences Assessment & Plan Assessment & Plan (1) Hypogonadism in male: Code(s): E29.1 - Testicular hypofunction Plan Restart testosterone Six-month follow-up Orders: Orders Complete Blood Count no Diff 6 Months E29.1 - Testicular hypofunction Prostate Specific Antigen 6 Months E29.1 - Testicular hypofunction Testosterone, Total 6 Months E29.1 - Testicular hypofunction Medications: Refilled testosterone cypionate (Depo-Testosterone) 140 mg (0.7 mL) subcut QWEEK 4 mL 5RF 30 days Discontinued Xyosted (testosterone enanthate) Discontinued Reason: Doctor's Order 75 mg (0.5 mL) subcut QWEEK 2 mL 0RF NS E29.1 - Testicular hypofunction Patient Instructions: Imaging studies, laboratory and physical exam results were discussed and reviewed in detail. No major barriers to patient understanding were identified. An opportunity to ask questions regarding the treatment plan was provided. All questions were answered. The patient expressed understanding and agreement with the above treatment plan. The patient is aware they should contact our office by phone for worsening of their current condition or the appearance of new urologic symptoms. Compliance is encouraged with any medications and followup testing that is ordered. It is a privilege to participate in the urologic care of your patient. If you have any questions or concerns regarding treatment for the above conditions, or other urologic issues, please do not hesitate to contact me. The office telephone contact is [phone]. This note is constructed using voice recognition software. While every effort has been made to ensure accuracy coil rewind machine operator errors may have been included. Yours sincerely, Dr Diego Kennedy MD, [facility] - Urology Providers of Expert, Compassionate Care for the Genitourinary System Telehealth Telehealth Location of provider rendering services: practice address Location of patient: address on file Patient Identification confirmed using: Name, : Yes Telehealth method: video Patient verbally consented to treatment: Yes Patient verbally consented to billing insurance company: Yes Patient informed of any privacy concerns related to visit: Yes Coding Level of Care Code Tele Est Pt Level 4 (17284) Diagnoses Hypogonadism in male E29.1
== END 2023-05-06 12:18 | disposition home or self-care (01) ==
LOC: HO.HUSH 10:59
PROVIDERS: PCP Internal Medicine; Visit Provider Urology
DX: E29.1 Testicular hypofunction (principal)
CPT/HCPCS: 99214

== ENCOUNTER → 2023-05-06 10:59 | Outpatient (BNVA) | payer MEDICAID, SELFPAY | PROVIDERS: PCP Internal Medicine; Visit Provider Urology ==

== ENCOUNTER 2023-07-25 14:50 | Outpatient (REF) | payer MEDICAID, SELFPAY ==
--- NOTE | ~2023-07-25 | XR_ITS ---
EXAMINATION: XR CHEST CLINICAL INFORMATION: Rule out irritation to the diaphragm COMPARISON: 07/25/2013 TECHNIQUE: 2 views of the chest were obtained. FINDINGS: No significant abnormality is noted involving the heart, lungs, mediastinum, bony thorax or soft tissues. Some minimal atelectasis is seen at the right lung base posteriorly. XR/XR chest 2V IMPRESSION: Unremarkable examination.
== END 2023-07-25 14:51 | disposition home or self-care (01) ==
LOC: HO.HMGCX 14:50
PROVIDERS: PCP Internal Medicine; Visit Provider Internal Medicine
DX: R06.6 Hiccough (principal)
CPT/HCPCS: 71046

== ENCOUNTER 2023-07-26 12:44 | Emergency (ER) | payer MEDICAID, SELFPAY ==
--- NOTE | ~2023-07-26 | CT_ITS ---
EXAMINATION: CT CHEST WITH CONTRAST CLINICAL INFORMATION: Intractable hiccups; question mass. COMPARISON: CT chest dated 02/04/2023. TECHNIQUE: Multidetector volumetric CT imaging of the chest was obtained after the administration of 50 mL of Omnipaque 350 intravenous contrast without immediate adverse reactions. Axial MIP volume rendering provided. Sagittal and coronal reformatted images were obtained. This CT examination was performed using dose optimization techniques as appropriate, variously including the following: *Automated exposure control *Adjustment of mA and/or kV according to patient size (this includes techniques or standardized protocols for targeted exams where dose is matched to indication/reason for exam; i.e. extremities or head) *Use of iterative reconstruction technique DLP: 982 mGy-cm FINDINGS: GOLF SUPERINTENDENT: The lungs are symmetrically well-expanded and grossly clear. LUNGS: There is mild biapical pleural and parenchymal scarring. There is mild paraseptal emphysematous change, with a biapical predominance. Anteriorly within the right upper lobe (7:69), a 2 mm noncalcified subpleural nodule is seen. This is stable from 02/25/2020, and it is considered benign, requiring no imaging follow-up. Abutting the accessory fissure (7:294), a 5 mm benign pleural-based lymph node is seen. At the posteromedial left apex (7:21), a 3 mm benign, pleural-based lymph node is seen. Abutting the left major fissure (7:299), a 4 mm benign, pleural-based lymph node is seen. There is no mass, infiltrate or groundglass opacity. There is mild bibasilar linear scar/subsegmental atelectasis, without associated focal airway obstruction. No generalized small airway thickening is seen. The central airways appear patent. MEDIASTINUM: The thyroid is unremarkable. There is no thoracic aortic aneurysm or dissection. There are mild atherosclerotic calcifications of the great vessel origins, thoracic aorta and coronary arteries. No mediastinal or hilar lymphadenopathy is seen. The esophagus is unremarkable. PLEURA: There is no pleural effusion. No pleural mass or thickening. AXILLA: No lymphadenopathy. UPPER ABDOMEN: Please see accompanying report for CT abdomen and pelvis. OSSEOUS STRUCTURES: There is multi-level lower cervical and thoracic spondylosis. No acute or aggressive osseous finding is noted. CT/CT abdomen pelvis w IV con IMPRESSION: 1. A benign, stable 2 mm subpleural nodule is seen anteriorly within the right upper lobe. This is unchanged from 02/25/2020, and no imaging follow-up is recommended. 2. No new nodule, mass, infiltrate or groundglass opacity is seen. 3. There is mild paraseptal emphysematous change. 4. There is no thoracic lymphadenopathy or pleural effusion. 5. There is multi-level cervical thoracic spondylosis. No acute or aggressive osseous finding is seen. Fleischner guidelines were followed. EXAMINATION: CT ABDOMEN AND PELVIS WITH CONTRAST CLINICAL INFORMATION: Intractable hiccups; question mass. COMPARISON: Prior chest CT examinations as remote as 09/20/2016. TECHNIQUE: Multidetector volumetric images were obtained from the superior aspect of the liver through the pubic symphysis following administration 85 mL of Omnipaque 350 intravenous contrast. Sagittal and coronal reformatted images were obtained on the technologist's workstation. Oral contrast: No This CT examination was performed using dose optimization techniques as appropriate, variously including the following: *Automated exposure control *Adjustment of mA and/or kV according to patient size (this includes techniques or standardized protocols for targeted exams where dose is matched to indication/reason for exam; i.e. extremities or head) *Use of iterative reconstruction technique DLP: 982 mGy-cm FINDINGS: LUNG BASES: The visualized lung bases are unremarkable. LIVER, GALLBLADDER, AND BILIARY TREE: The liver is normal in size, shape, and attenuation. There are benign, stable low-attenuation hepatic lesions, which are unchanged from the CT chest dated 09/20/2016 and are considered benign, requiring no imaging follow-up. No new focal hepatic lesion or biliary ductal dilatation is present. The gallbladder is unremarkable with no evidence of radiopaque gallstones, gallbladder wall thickening, or obvious pericholecystic inflammatory changes. PANCREAS: Unremarkable. SPLEEN: Unremarkable. ADRENAL GLANDS: Unremarkable. KIDNEYS AND URETERS: The kidneys are normal in size, shape, and attenuation. Within the mid left kidney posteriorly (13:30), a 1.7 cm benign, simple cyst is seen, for which no imaging follow-up is recommended. No hydronephrosis, hydroureter, or calculi seen. No perinephric stranding. BLADDER: Mildly distended and otherwise unremarkable. GASTROINTESTINAL TRACT: There is moderate diverticulosis, without acute diverticulitis. No bowel obstruction, free intraperitoneal air or abscess is seen. There is no focal bowel wall thickening. The vermiform appendix appears normal. ABDOMINAL WALL: There is a small fat-containing left inguinal hernia. LYMPH NODES: There are mildly enlarged bilateral inguinal lymph nodes, the largest on the right showing a short axis diameter 9 mm, and on the left 8 mm (13:82 and 84). No sizable abdominopelvic lymphadenopathy is seen. VASCULAR: There is ectasia of the infrarenal abdominal aorta, with a caliber of 2.8 cm. There is moderate aortoiliac atherosclerotic calcification. No dissection is noted. PELVIC VISCERA: The prostate and seminal vesicles are unremarkable. OSSEOUS STRUCTURES: There is multi-level marked lower thoracic and mild lumbar facet arthropathy. No acute or aggressive osseous finding is noted. IMPRESSION: 1. No abdominopelvic mass, free fluid or lymphadenopathy is seen. 2. There is moderate diverticulosis, without acute diverticulitis. 3. There is ectasia of the infrarenal abdominal aorta, with a measurement of 2.8 cm. Follow-up ultrasound imaging of the abdominal aorta is recommended at a 5 year interval. 4. There is multi-level degenerative change of the thoracolumbar spine. Fleischner guidelines were followed.
--- NOTE | 2023-07-26 14:02 | ED_ITS ---
HPI - General Adult General Chief complaint: General Medical Stated complaint: hiccups for 1 week, diff breathing, Sent by [facility] Time Seen by Provider: 07/26/23 18:16 Source: patient Mode of arrival: ambulatory Limitations: no limitations History of Present Illness ED Provider: Dr. Frederic Campos HPI narrative: 63-year-old male with a history of chronic kidney disease, hypertension, COPD, meningitis, migraines, hypogonadism, tobacco use disorder who presents emergency department for evaluation of intractable hiccups. Patient states that he has been having hiccups for 1 week. He states that they are so severe that he feels short of breath at times as if he can not catch his breath. Patient states he did have intractable hiccups 12 years ago. Patient denied fever, chills, chest pain, shortness of breath, weight loss, weight gain. Patient states that he has had several episodes of vomiting secondary to the severity of his hiccups. Patient has seen his primary care provider and initially was given baclofen with no relief is hiccups. He was then given metoclopramide. He took 1 dose yesterday and this made him vomit and he did not take any repeat doses. He did talk to his PCP who advised him to go to the emergency department to get a CT scan of his chest abdomen pelvis to rule out possible malignancy as the cause for his intractable hiccups. Related Data Home Medications ?Medication ?Instructions ?Recorded ?Confirmed aspirin 81 mg tablet,delayed 81 mg PO DAILY 03/19/20 05/06/23 release (Ecotrin Low Strength) budesonide 3 mg 3 mg PO DAILY 03/19/20 05/06/23 capsule,delayed,extended release omega-3 fatty acids 1,000 mg 1,000 mg PO DAILY 03/19/20 05/06/23 capsule (Fish Oil Concentrate) lorazepam 1 mg tablet 1 tab PO BEDTIME 05/01/20 05/06/23 pravastatin 10 mg tablet 1 tab PO DAILY 05/01/20 05/06/23 Previous Rx's ?Medication ?Instructions ?Recorded lisinopril 5 mg tablet 5 mg PO DAILY #90 tabs 12/12/19 sildenafil 100 mg tablet 100 mg PO DAILY PRN sexual 09/14/22 activity 30 days #30 tabs syringe with needle 3 mL 21 gauge #30 ea 10/01/22 x 1 1/2 (BD Integra Syringe) testosterone cypionate 200 mg/mL 140 mg (0.7 mL) subcut QWEEK 30 05/06/23 intramuscular oil days #4 mL (Depo-Testosterone) chlorpromazine 25 mg tablet 25 mg PO TID 5 days #15 tabs 07/26/23 Allergies Allergy/AdvReac Type Severity Reaction Status Date / Time No Known Allergies Allergy Verified 07/26/23 14:04 seasonal Allergy Unknown unknown Uncoded 03/15/23 10:02 Review of Systems 2 Review of Systems: Yes all other systems are reviewed and are negative [facility] Past Medical History [facility] Narrative: Social history: The patient is a former smoker and he quit 15 years prior. He denies alcohol use. He does smoke marijuana at night. Medical History CKD (chronic kidney disease) stage 2, GFR 60-89 ml/min Hypertension PVC's (premature ventricular contractions) COPD (chronic obstructive pulmonary disease) History of meningitis Migraine Hypogonadism in male Surgical History History of colonoscopy History of repair of left rotator cuff History of repair of right rotator cuff Family History Family History Father Liver disease Mother HTN (hypertension) Heavy smoker Heart disease Social History Social History Tobacco use type: Cigarette Cigarette Packs Per Day: 1 Years Smoked: 37, smoked 1-1.5 ppd, quit 13 years prior Smoked in Last 30 Days: No Use of substances other than those prescribed or required for medical reasons: Yes Substance Use Type: Marijuana Substance Use Frequency: Daily Advance Directives: No Advance Directives Information Provided: No Do you have a plan to hurt others: No Plan Current occupational status: employed Current occupation: [employer] Physical Exam ED Vital Signs: Vital Signs - 24 hr 07/26/23 18:34 07/26/23 21:06 07/26/23 21:20 Temperature 97.6 F 97.6 F Pulse Rate 85 82 82 Respiratory Rate 19 14 14 Blood Pressure 160/87 H 158/85 H 158/85 H Pulse Oximetry 99 97 97 Oxygen Delivery Method Room Air Room Air Room Air BMI result Body Mass Index 29.1 Vital signs did reveal elevated blood pressures otherwise unremarkable Exam: General: Awake, alert , the patient does have intractable hiccups Head: Normocephalic, atraumatic EENT: PERRL, Lids normal, sclera normal, conjunctiva normal, nose normal , ears normal, throat without erythema or exudates Neck: Supple, no adenopathy Lung: breath sounds symmetric, no wheezing, rales or rhonchi Chest: symmetric movement, nontender Heart: regular rate and rhythm, normal S1, S2 no murmurs or rubs Abdomen: soft, non-tender, nondistended, normal bowel sounds Back: no vertebral tenderness, no CVAT Extremities: no deformities, moves all extremities symmetrically Neuro: Awake, alert, oriented, normal speech, cranial nerves intact, moves all extremities symmetrically Psych: Pleasant, cooperative Course Course Course Narrative: This is a Rapid Medical Examination (RME) performed by Davin Melendez PA-C in triage. Full HPI, ROS, assessment and treatment plan per primary provider in the Main ED. 63 yo w/ hx of here w/ hiccups x1 week. Reports associated difficulty breathing secondary to continuous hiccups as they rapidly fire . hx of PVCs. No other cardiac hx. Patient was called in as expect. He failed baclofen and Reglan as outpatient. Negative chest x-ray. PCP (Dr. Daniel) requesting CT to look at the diaphragm. Question treatment with Thorazine injection. Patient well-appearing on exam. Actively hiccuping. RRR. lungs CTA b/l. Plan: basic labs, EKG ordered +/- imaging per primary provider Medications Administered Discontinued Medications Generic Name Dose Route Start Last Admin Trade Name Freq PRN Reason Stop Dose Admin Sodium Chloride 1,000 mls @ 999 mls/hr 07/26/23 18:45 07/26/23 20:35 Ns IV 07/26/23 19:45 Infused .Q1H1M STA Infusion Chlorpromazine HCl 25 mg/ 51 mls @ 51 mls/hr 07/26/23 18:45 07/26/23 20:35 Sodium Chloride IV 07/26/23 19:44 Infused ONCE ONE Infusion Iohexol 100 ml 07/26/23 20:08 07/26/23 20:10 Iohexol 350 Mg/Ml 100 Ml Infus..Btl IV 07/26/23 20:09 85 ml ONCE ONE Administration Medical Decision Making Medical Decision Making [facility] Narrative: 63-year-old male with a history of chronic kidney disease, hypertension, COPD, meningitis, migraines, hypogonadism, tobacco use disorder presents emergency department for evaluation of 1 week of intractable hiccups. Patient was started on baclofen with no relief his symptoms, he took 1 dose of metoclopramide but this made him ill and he did not take any more medications. Patient's physical examination did reveal intractable hiccups otherwise was unremarkable. Differential diagnosis: ?Includes but is not limited to phrenic nerve irritation, lung malignancy, abdominal malignancy Following evaluation was ordered: CBC, CMP, lipase, troponin, magnesium, CT scan of the chest abdomen pelvis with IV contrast, EKG Patient was initially treated with the following: Thorazine (chlorpromazine) 25 mg IV Course: My independent interpretation patient's laboratory evaluation as follows: CBC was normal. CMP was normal. High sensitive troponin I was detectable but not elevated at 2.9. Lipase was normal. CT scan of the abdomen pelvis did not reveal a clear cause for the patient's intractable hiccups Patient was prescribed Thorazine, he was given printed and verbal instructions and discharged home. 07/27/2023 at 17:[address] scans were not available yesterday. I did call the patient on the phone and did tell him there was no clear cause for his intractable hiccups on the scans. I did review the incidental findings with him especially the intervening ectasia/possible aneurysm. I told him that he should follow-up with his doctor to get an ultrasound and to follow-up with ultrasound every year as opposed to the 5 your recommendation given by the radiologist. The patient understood this discussion and states that he will talk to his doctor about getting an outpatient ultrasound. Admission/Observation Consideration of admission/observation: Escalation of care including admission/observation considered Lab Data [facility] Lab Attestation statement: I reviewed the patient's lab results. 07/26/23 14:22 07/26/23 14:22 Labs: Lab Results 07/26/23 Range/Units 14:22 WBC 9.1 (4.8-10.8) X10*3/uL RBC 5.12 (4.60-5.80) X10*6/uL Hgb 16.7 (14.0-18.0) g/dl Hct 48.9 (42.0-52.0) % MCV 95.5 (80.0-98.0) fL MCH 32.6 (27.0-33.0) pg MCHC 34.2 (31.0-36.0) g/dl RDW 13.2 (11.0-16.0) % Plt Count 256 (160-400) X10*3/uL MPV 9.1 L (9.4-12.4) fL Immature Gran % (Auto) 0.4 (0.0-0.4) % Neut % (Auto) 74.3 H (45-73) % Lymph % (Auto) 16.7 L (20-40) % [place] % (Auto) 7.1 (2-11) % Eos % (Auto) 1.1 (0-4) % Baso % (Auto) 0.4 (0-2) % Lymph # (Auto) 1.5 (1.2-4.9) X10*3/uL [place] # (Auto) 0.7 (0.1-1.2) X10*3/uL Eos # (Auto) 0.1 (0.0-0.4) X10*3/uL Baso # (Auto) 0.0 (0.0-0.2) X10*3/uL Abs Immat Gran (auto) 0.04 H (0.00-0.03) X10*3/uL Absolute Neuts (auto) 6.8 (2.0-8.3) x10*3/uL Absolute Nucleated RBC 0.000 (0.0-0.012) X10*3/uL Nucleated RBC % (auto) 0.0 (0.0-0.2) /100WBC Sodium 140 (135-145) mmol/L Potassium 4.4 (3.3-5.1) mmol/L Chloride 104 (96-108) mmol/L Carbon Dioxide 26 (22-29) mmol/L Anion Gap 14 (12-20) BUN 19 H (9-16) mg/dL Creatinine 1.20 (0.5-1.4) mg/dL Estim Creat Clear Calc 73.9 Estimated GFR > 60 Random Glucose 85 (60-115) mg/dL Calcium 9.6 (8.4-10.2) mg/dL Magnesium 2.2 (1.6-2.6) mg/dL Total Bilirubin 0.6 (0.0-1.0) mg/dL AST 27 (5-37) U/L ALT 28 (0-40) U/L Alkaline Phosphatase 61 (39-117) U/L Troponin I High Sens 2.9 (<3.5-35.0) ng/L Total Protein 7.3 (6.5-8.0) g/dL Albumin 4.3 (3.5-5.0) g/dL Lipase 16 (8-78) U/L Independent Interpretation I performed an independent interpretation of an: EKG Interpretation: My interpretation patient's 12 EKG done at 14:12 hours is as follows: Normal sinus rhythm rate of 94, normal SC interval, QRS duration QTC interval, no ST segment elevation, no ST segment depression, inverted T-wave in lead 3 and AVF no PACs, no PVCs. Compared to EKG dated 02/17/2019 18 there has no significant change. Radiology Impression Discussion of test interpretation with radiology: I have reviewed the radiologist's reading. Radiologist Impression: CT chest w IV con IMPRESSION: 1. A benign, stable 2 mm subpleural nodule is seen anteriorly within the right upper lobe. This is unchanged from 02/25/2020, and no imaging follow-up is recommended. 2. No new nodule, mass, infiltrate or groundglass opacity is seen. 3. There is mild paraseptal emphysematous change. 4. There is no thoracic lymphadenopathy or pleural effusion. 5. There is multi-level cervical thoracic spondylosis. No acute or aggressive osseous finding is seen. Fleischner guidelines were followed. CT abdomen pelvis with IV contrast IMPRESSION: 1. No abdominopelvic mass, free fluid or lymphadenopathy is seen. 2. There is moderate diverticulosis, without acute diverticulitis. 3. There is ectasia of the infrarenal abdominal aorta, with a measurement of 2.8 cm. Follow-up ultrasound imaging of the abdominal aorta is recommended at a 5 year interval. 4. There is multi-level degenerative change of the thoracolumbar spine. Fleischner guidelines were followed. Dictated By: Pascual Us MD Prescription Management I considered prescription management with: Other (Thorazine) Chronic Conditions Patient?s care impacted by: Other (COPD) Discharge Plan Discharge Clinical Impression: Intractable hiccoughs Patient Disposition: Home, Self-Care Instructions: Hiccups (ED) Additional Instructions: Your blood work was unremarkable I did obtain a CT scan of your chest, abdomen pelvis with IV contrast. The radiology reading is delayed secondary to a breakdown in our radiology system and the radiologist's are very far behind. This reading should be available tomorrow or the next day and I want you to follow-up with your primary care doctor to check this reading. Sometimes, intractable hiccups can be due to a tumor in the bottom part of the lungs or the upper part of the abdomen that causes inflammation of the diaphragm and hiccups. Therefore it is very important that you follow-up with your doctor to get this reading and discuss the findings. Stop taking the Reglan (metoclopramide) Take Thorazine (chlorpromazine) 25 mg pills, 1 pill 3 times (every 6 hours while you are awake) a day for 5 days. This medication will make you sleepy you can not drive while your taking this medication. You did receive a dose IV here in the emergency department. Follow-up with your doctor in 2 days. Please return to the emergency department if your symptoms get worse or if you develop any symptoms that are concerning to you. Prescriptions: New chlorpromazine 25 mg tablet 25 mg PO TID 5 Days Qty: 15 0RF No Action lisinopril 5 mg tablet 5 mg PO DAILY Qty: 90 1RF sildenafil 100 mg tablet 100 mg PO DAILY PRN (Reason: sexual activity) 30 Days Qty: 30 6RF Rx Instructions: administer 60 minutes before intended activity (DME) syringe with needle [BD Integra Syringe] 3 mL 21 gauge x 1 1/2 syringe See Rx Instructions .ROUTE .MEDSUPPLY Qty: 30 1RF Rx Instructions: As directed- 4/month pravastatin 10 mg tablet 1 tab PO DAILY lorazepam 1 mg tablet 1 tab PO BEDTIME budesonide 3 mg capsule,delayed,extend.release 3 mg PO DAILY omega-3 fatty acids [Fish Oil Concentrate] 1,000 mg capsule 1,000 mg PO DAILY aspirin [Ecotrin Low Strength] 81 mg tablet,delayed release (DR/EC) 81 mg PO DAILY testosterone cypionate [Depo-Testosterone] 200 mg/mL oil 140 mg subcut QWEEK 30 Days Qty: 4 5RF Interventions: ED Discharge Assessment Last Done: 07/26/23 21:20 Discharge Date/Time: 07/26/23 21:21 Print Language: Chinese
[2023-07-26 14:03] VITALS: BP 153/61; PULSE 90; RESP 18; TEMP 36.6; O2SAT 97; BMI 29.1
--- NOTE | 2023-07-26 14:05 | ECG_ITS ---
Test Reason : DIFF BREATHING Blood Pressure : / mmHG Vent. Rate : 094 BPM Atrial Rate : 094 BPM P-R Int : 140 ms QRS Dur : 094 ms QT Int : 368 ms P-R-T Axes : 061 046 -06 degrees QTc Int : 460 ms Normal sinus rhythm Nonspecific ST and T wave abnormality Abnormal ECG When compared with ECG of 17-FEB-2017 10:45, No significant changes seen Referred By: Stella Melendez Electronically Signed By:BETH TODD
[2023-07-26 14:25] LABS: MANUAL DIFF FLAG NO
[2023-07-26 14:33] LABS: Basophils Percent Auto 0.4 % (0-2); Eosinophils Absolute Auto 0.1 X10*3/uL (0.0-0.4); Eosinophils Percent Auto 1.1 % (0-4); Hematocrit 48.9 % (42.0-52.0); Hemoglobin 16.7 g/dl (14.0-18.0); Imm Gran Abs Auto 0.04 X10*3/uL (0.00-0.03); Imm Gran Pct Auto 0.4 % (0.0-0.4); Lymphocytes Absolute Auto 1.5 X10*3/uL (1.2-4.9); Lymphocytes Percent Auto 16.7 % (20-40); Mean Corpuscular HGB Conc 34.2 g/dl (31.0-36.0); Mean Corpuscular Hemoglobin 32.6 pg (27.0-33.0); Mean Corpuscular Volume 95.5 fL (80.0-98.0); Mean Platelet Volume 9.1 fL (9.4-12.4); Monocytes Absolute Auto 0.7 X10*3/uL (0.1-1.2); Monocytes Percent Auto 7.1 % (2-11); Neutrophils Absolute Auto 6.8 x10*3/uL (2.0-8.3); Neutrophils Percent Auto 74.3 % (45-73); Platelet Count 256 X10*3/uL (160-400); Red Blood Count 5.12 X10*6/uL (4.60-5.80); Red Cell Distribution Width 13.2 % (11.0-16.0); White Blood Count 9.1 X10*3/uL (4.8-10.8)
[2023-07-26 14:44] LABS: Alanine Aminotransferase 28 U/L (0-40); Albumin Level 4.3 g/dL (3.5-5.0); Alkaline Phosphatase 61 U/L (39-117); Anion Gap 14 (12-20); Aspartate Amino Transferase 27 U/L (5-37); Bilirubin Total 0.6 mg/dL (0.0-1.0); Blood Urea Nitrogen 19 mg/dL (9-16); Calcium 9.6 mg/dL (8.4-10.2); Carbon Dioxide 26 mmol/L (22-29); Chloride 104 mmol/L (96-108); Creatinine Clr Calc Pharmacy 73.9; Estimated Glomerular Filt Rate > 60; Glucose Random 85 mg/dL (60-115); Lipase 16 U/L (8-78); Magnesium 2.2 mg/dL (1.6-2.6); Potassium 4.4 mmol/L (3.3-5.1); Sodium 140 mmol/L (135-145); Total Protein 7.3 g/dL (6.5-8.0)
[2023-07-26 14:48] LABS: Troponin-I High Sensitivity 2.9 ng/L (<3.5-35.0)
[2023-07-26 18:34] VITALS: BP 160/87; PULSE 85; RESP 19; O2SAT 99
[2023-07-26] MEDS: 0.9 % Sodium Chloride 1,000 ML 999 ML IV (19:11)
[2023-07-26] MEDS: chlorproMAZINE HCl 25 MG in 0.9 % Sodium Chloride 50 ML 51 MG IV (19:11)
[2023-07-26] MEDS: iohexoL 350 MG/ML 100 ML INFUS..BTL IV (20:10)
[2023-07-26 21:06] VITALS: BP 158/85; PULSE 82; RESP 14; TEMP 36.4; O2SAT 97
[2023-07-26 21:20] VITALS: BP 158/85; PULSE 82; RESP 14; TEMP 36.4; O2SAT 97
== END 2023-07-26 21:21 | disposition home or self-care (01) ==
PROVIDERS: Physician Assistant Medical; Emergency Provider Emergency Medicine Emergency Medical Services; PCP Internal Medicine
DX: R06.6 Hiccough (principal); R06.02 Shortness of breath; R94.31 Abnormal electrocardiogram [ECG] [EKG]; R10.2 Pelvic and perineal pain; Z79.899 Other long term (current) drug therapy
CPT/HCPCS: 36415; 71260; 74177; 80053; 83690; 83735; 84484; 85025; 93005; 96361; 96374; 99285; J3230; Q9967

== ENCOUNTER → 2023-07-26 14:05 | Outpatient (BNV) | payer MEDICAID, SELFPAY | PROVIDERS: Emergency Provider Emergency Medicine Emergency Medical Services; PCP Internal Medicine; Visit Provider Internal Medicine | DX: R06.00 Dyspnea, unspecified (principal); R94.31 Abnormal electrocardiogram [ECG] [EKG] | CPT/HCPCS: 93010 ==

== ENCOUNTER 2023-08-30 08:27 | Outpatient (REF) | payer MEDICAID, SELFPAY ==
--- NOTE | ~2023-08-30 | US_ITS ---
EXAMINATION: US RETROPERITONEAL LIMITED (AORTA) CLINICAL INFORMATION: Aortic enlargement seen on CT. COMPARISON: CT abdomen and pelvis 07/26/2023. TECHNIQUE: Soto-scale, color Doppler and spectral Doppler evaluation of the abdominal aorta. FINDINGS: Atherosclerotic aorta. The measurements of the aorta in maximum AP and transverse dimensions respectively are as follows: Proximal: 2.2 x 2.1 cm. Mid: Obscured by bowel gas. Distal: 3.1 x 3.1 cm. By my measurements, the aneurysm measures 3.0 x 3[address] 07/26/2023. PSV: 93.9 cm/s. The measurements of the common iliac arteries in maximum AP and TRV dimensions are as follows: Right Common Iliac Artery: 1.6 x 1.6 cm. Left Common Iliac Artery: 1.5 x 1.9 cm. US/US abdominal aortic aneurysm IMPRESSION: Infrarenal abdominal aortic aneurysm measuring 3.1 cm. Best Practice Recommendation: Based on published guidelines in J Am Mando Radiol 2013; 10(10):789-794 and J Vasc Surg. 2018; 67:2-77, the recommendation for an abdominal aortic aneurysm with diameter 3.0-3.4 cm is follow-up every 3 years.
== END 2023-08-30 08:28 | disposition home or self-care (01) ==
LOC: HO.HMGCX 08:27
PROVIDERS: PCP Internal Medicine; Visit Provider Internal Medicine
DX: I77.810 Thoracic aortic ectasia (principal); R06.6 Hiccough
CPT/HCPCS: 76706

== ENCOUNTER 2023-10-03 10:56 | Day surgery (SDC) | payer MEDICAID, SELFPAY ==
[2023-10-03 12:41] VITALS: BMI 28.7
[2023-10-03 13:05] VITALS: BP 163/80; PULSE 82; RESP 16; TEMP 36.9; O2SAT 96
[2023-10-03] MEDS: Lactated Ringers 1,000 ML 50 ML IVCONT (13:28)
--- NOTE | 2023-10-03 13:50 | HO.ANESPROP2 ---
[facility] Active Problems Active Problems: All Active Problems Personal history of tobacco use (Acute) Pulmonary nodules (Acute) Hypogonadism in male (Acute) Rotator cuff impingement syndrome of left shoulder (Acute) SLAP lesion of left shoulder (Acute) Erectile dysfunction due to arterial insufficiency (Acute) Past Medical History Medical History CKD (chronic kidney disease) stage 2, GFR 60-89 ml/min Hypertension PVC's (premature ventricular contractions) COPD (chronic obstructive pulmonary disease) History of meningitis Migraine Hypogonadism in male Family History Family History Father Liver disease Mother HTN (hypertension) Heavy smoker Heart disease Family history of problems with anesthesia: No Surgical History Surgical History History of colonoscopy History of repair of left rotator cuff History of repair of right rotator cuff History of Problems with Anesthesia: No Social History Social History Patient Tobacco Use Status: Former Tobacco user Tobacco use type: Cigarette Cigarette Packs Per Day: 1 Years Smoked: 37, smoked 1-1.5 ppd, quit 13 years prior Use of substances other than those prescribed or required for medical reasons: Yes Substance Use Type: Marijuana Substance Use Type Other:: Last used on 10/01/23 Substance Use Frequency: Daily Are you DNR?: No Advance Directives: No Advance Directives Information Provided: Yes Current occupational status: employed Current occupation: [employer] Meds Allergies Allergy/AdvReac Type Severity Reaction Status Date / Time No Known Allergies Allergy Verified 10/03/23 12:43 seasonal Allergy Unknown unknown Uncoded 10/03/23 13:01 Active Medications: Current Medications Lactated Ringer's (Lr) 1,000 mls @ 50 mls/hr IVCONT .Q20H LUKASZ Last Admin: 10/03/23 13:28 Dose: 50 mls/hr Home Medications ?Medication ?Instructions ?Recorded ?Confirmed ?Last Taken ?Type budesonide 3 mg 3 mg PO DAILY 03/19/20 10/03/23 10/01/23 History capsule,delayed,extended release omega-3 fatty acids 1,000 mg 1,000 mg PO DAILY 03/19/20 10/03/23 10/01/23 History capsule (Fish Oil Concentrate) Exam Height,Weight and Vital Signs: Height 5 ft 11 in Weight 93.44 kg Last Vital Signs Temp 98.5 F 10/03/23 13:05 Pulse 82 10/03/23 13:05 Resp 16 10/03/23 13:05 BP 163/80 H 10/03/23 13:05 Pulse Ox 96 10/03/23 13:05 O2 Del Method Room Air 10/03/23 13:05 Airway Mallampati Class: III TM Dist: >3cm Neck ROM: Full Assessment and Plan Assessment Anesthesia Assessment: Anesthesia Plan Discussed and Chart Reviewed Final Anesthetic Review Family History of Problems with Anesthesia: No History of Problems with Anesthesia: No NPO: Yes ASA Class: II Final Preanesthetic Review: No Changes in Pt Med Stat, Meds/Allgs Chart Reviewed, Consent Obtained/Reviewed and Anes Risks/Benef Reviewed Patient Risk: Intermediate Procedure Risk: Low Anesthetic Plan Anesthetic Plan: TIVA Disposition: Standard PACU
[2023-10-03 15:07] VITALS: BP 115/57; PULSE 78; RESP 16; TEMP 36.6; O2SAT 97
--- NOTE | 2023-10-03 15:17 | PM.OP ---
Brief Operative Note Date of Service: 10/03/23 Pre-op diagnosis: Belching, hiccups, gas, GERD, nausea Post-op diagnosis: other (Erosive esophagitis, Hiatal hernia) Procedure: EGD with biopsies Surgeon: Armin Jones MD Anesthesia: MAC Was an Production Department Supervisor used for this Procedure?: No Estimated blood loss (mL): 2.0 Pathology: other (A. Descending duodenum B. Gastric antrum C. EG Junction at 40cm) Condition: stable Disposition: PACU
[2023-10-03 15:22] VITALS: BP 160/83; PULSE 82; RESP 20; TEMP 36.4; O2SAT 98
--- NOTE | 2023-10-03 16:10 | OP_ITS ---
DATE OF SERVICE: 10/03/2023 SURGEON: Armin Jones MD INDICATIONS: The patient presents for evaluation of persistent nausea, vomiting, belching, and hiccups. Full consent has been obtained from him for this, including risks of bleeding and perforation. PREOPERATIVE DIAGNOSIS: POSTOPERATIVE DIAGNOSIS: PROCEDURE PERFORMED: Esophagogastroduodenoscopy with biopsy. ESTIMATED BLOOD LOSS: COMPLICATIONS: ANESTHESIA: Monitored anesthesia care. ASSISTANTS: SPECIMENS: PREOPERATIVE DIAGNOSES: Belching, nausea, vomiting, and hiccups. POSTOPERATIVE DIAGNOSES: Belching, nausea, vomiting, hiccups, erosive esophagitis with associated hiatal hernia, rule out gastritis and Helicobacter pylori, rule out celiac disease, and rule out Giardia. DESCRIPTION OF PROCEDURE: The patient was placed in the left lateral decubitus position. The Olympus video gastroscope was passed in the posterior oropharynx and upper esophagus under direct vision. The scope was passed slowly into the distal esophagus. The gastroesophageal junction appeared at 40 cm. This area was notable for an approximately 10 mm ulcer with a clean base right at the EG junction. There was no surrounding mass. The remainder of the distal esophagus appeared normal and some very minimal irregularity consistent with reflux as well. There was no definitive evidence of Allen mucosa, mass, nor any lesions. The scope entered the stomach. There was a small hiatal hernia. The hiatal hernia mucosa appeared normal. The scope was advanced to the pylorus and the duodenum was cannulated to the descending portion. The duodenum including the bulb appeared normal without mass or ulceration. Biopsies were obtained from the 2nd and 3rd portions of duodenum. The scope was withdrawn back to the stomach. The gastric antrum and body appeared normal with good peristalsis. Biopsies were obtained from the antrum. The scope was retroflexed, visualizing the proximal stomach carefully, which appeared normal, without any sign of mass or ulceration. The scope was straightened and withdrawn back to the esophagus. Biopsies were obtained at the EG junction at 40 cm including from the margin of the small ulcer at the EG junction. Proximal to the EG junction, the esophageal mucosa appeared normal. The scope was withdrawn from the patient. He tolerated the procedure well and was returned to the recovery area in stable condition. IMPRESSION: 1. Erosive esophagitis. 2. Hiatal hernia. 3. Rule out Helicobacter pylori. 4. Rule out Giardia and/or celiac disease. PLAN: The results of the biopsies will be checked. Given this finding, I am going to start him back on his omeprazole 40 mg daily. He did try that, but only took it for a few days. I think we need to give that a good trial of at least 1 to 2 months to see if that will help his symptoms. He recently stopped his Thorazine and thinks the hiccups got worse, so he may need to go back on that as needed. He will be seen in followup as well. He did have a CT scan of his chest and abdomen in July when he went to the ER for the symptoms and the studies did not reveal any significant abnormalities in the mediastinum, esophagus, or GI tract. He was advised not to use any aspirin and NSAIDs for at least a week. He was advised to try to minimize the use of caffeine and eat a healthy low-fat diet. MD FRANCIS Leslie/ANA / [phone]
== END 2023-10-03 15:37 | disposition home or self-care (01) ==
PROVIDERS: PCP Internal Medicine; Visit Provider Internal Medicine
PROC: 0DJ08ZZ Inspection of Upper Intestinal Tract, Via Natural or Artificial Opening Endoscopic (ICD-10-PCS; CPT 43235; principal; 2023-10-03 13:20)
DX: K20.80 Other esophagitis without bleeding (principal); K44.9 Diaphragmatic hernia without obstruction or gangrene; J44.9 Chronic obstructive pulmonary disease, unspecified; I12.9 Hypertensive chronic kidney disease with stage 1 through stage 4 chronic kidney disease, or unspecified chronic kidney disease; N18.30 Chronic kidney disease, stage 3 unspecified; Z79.899 Other long term (current) drug therapy
CPT/HCPCS: 43239; 88305; 88313; 88342; J2704

== ENCOUNTER 2023-10-12 08:16 | Outpatient (REF) | payer MEDICAID, SELFPAY ==
--- NOTE | ~2023-10-12 | FL_ITS ---
EXAMINATION: XR FLUOROSCOPY UPPER GI WITH AIR CLINICAL INFORMATION: Dysphagia. Abdominal discomfort. Nausea/vomiting. COMPARISON: None TECHNIQUE: Fluoroscopic air contrast upper GI examination was performed utilizing standard techniques with thin and thick barium and effervescent granules. Numerous spot images were obtained. FINDINGS: Lateral cine images of the oropharynx and hypopharynx demonstrate normal swallow mechanism with normal epiglottic inversion and soft palate elevation. No tracheal penetration, glottic or subglottic aspiration identified. No nasopharyngeal reflux present. Hypopharyngeal structures appear normal without evidence of mass or diverticulum. There is mild cricopharyngeal achalasia present. Dual and single contrast images of the esophagus demonstrate normal caliber and contour. There is a granular appearance of the esophagus mucosa, which suggests esophagitis. and mucosal pattern. No evidence of mass, or ulcerations identified. A nonobstructing Schatzki's ring is present. Esophageal peristalsis is moderately disorganized. Small type I hiatal hernia is present. No significant gastroesophageal reflux was seen during the course of the examination and on reflux views. Dual contrast and single contrast images of the stomach demonstrated a normal contour. Normal fold pattern. No mucosal abnormalities. No masses or ulcerations are seen. Contrast freely passed into the gastric antrum and duodenal bulb without delay. Single and air-contrast images of the duodenal bulb demonstrate no abnormality. The duodenal sweep has a normal appearance, course, and mucosal fold appearance. The imaged proximal jejunum has a normal fold pattern and caliber. FLUOROSCOPY TIME: 4 minutes 17 seconds Number of Spot Images: 6 Number of Cine: 14 DOSE AREA PRODUCT: 2852 uGy-m2 (microgray-meter squared) FL/FL upper GI w air IMPRESSION: 1. Mild cricopharyngeal achalasia. 2. Granular appearance of the esophageal mucosa, suggestive of esophagitis. 3. Nonobstructing Schatzki's ring. 4. Moderately disorganized esophageal peristalsis. 5. Small type I hiatal hernia. This procedure was performed by Lc Mcdonald PA-C, and supervised by Dr. Tom Electronically signed by: Merlin Tom MD 10/13/2023 03:25 PM EDT
[2023-10-13 12:58] LABS: Immunoglobulin A 365 mg/dL (70-320)
[2023-10-14 21:08] LABS: Gliadin Deamidated IgG Ab <1.0 U/mL; Transglutaminase Ab IgG <1.0 U/mL; Transglutaminase IgA <1.0 U/mL
[2023-10-22 07:24] LABS: Endomysial IgA Antibody Negative (Negative)
== END 2023-10-12 08:17 | disposition home or self-care (01) ==
LOC: HO.XRAY 08:16
PROVIDERS: PCP Internal Medicine; Visit Provider Internal Medicine
DX: R11.2 Nausea with vomiting, unspecified (principal); R14.2 Eructation; R06.6 Hiccough
CPT/HCPCS: 36415; 74246; 82784; 86231; 86258; 86364

== ENCOUNTER → 2023-10-12 08:22 | Outpatient (BNV) | payer MEDICAID, SELFPAY | PROVIDERS: PCP Internal Medicine; Visit Provider Radiology Diagnostic Radiology | DX: R13.10 Dysphagia, unspecified (principal) | CPT/HCPCS: 74246 ==

== ENCOUNTER → 2023-10-26 07:52 | Outpatient (REF) | payer MEDICAID, SELFPAY ==
--- NOTE | ~2023-10-26 | NM_ITS ---
EXAMINATION: NM RADIONUCLIDE SOLID FOOD GASTRIC EMPTYING 4-HOUR STUDY CLINICAL INFORMATION: Nausea and vomiting. COMPARISON: None TECHNIQUE: A standard meal consisting of 4 oz of Egg Beaters brand tagged with 1000 microcuries Tc-99m Sulfur Colloid, 8 oz water and 2 slices of toast with jelly was administered orally to the patient. Images were obtained using a dual head gamma camera in the anterior and posterior projections over of the stomach immediately post ingestion and at hourly intervals up to 4 hours post ingestion. The anterior and posterior counts at each time interval were averaged using the geometric mean and expressed as percentage of the immediate post ingestion counts. FINDINGS: There is good visualization of activity in the stomach immediately post ingestion. As the study progresses, there is good clearance of activity from the stomach and visualization of progressively increasing small bowel activity. By the end of the study, there is almost no retention noted in the stomach. Retention in the stomach at each time interval was: 1 hour 44% (normal 37%-90%) 2 hours 14% (normal 30%-60%) 3 hours 1% 4 dialysis dimension was not performed since only 1% retention was noted at 3 hours interval. NM/NM gastric emptying study IMPRESSION: Normal 4-hour solid food gastric emptying study. For solid meal, rapid gastric emptying is less than 30% at 60 minutes. Delayed gastric emptying criteria is more than 60% remaining at 120 minutes or more than 10% at 240 minutes. The 4-hour value is the best discriminator of a normal or abnormal result). Gastric emptying study grading per JNMT Consensus Recommendations in 2008 (https://tech.snmjournals.org/content/36/1/44) Grade 1 (mild retention): 11-20% at 4h Grade 2 (moderate retention): 21-35% at 4h Grade 3 (severe retention): 36-50% at 4h Grade 4 (very severe retention): >50% retention at 4h Electronically signed by: Bethany Clay MD 10/26/2023 02:17 PM EDT
== END ==
LOC: HO.NUCMED 07:52
PROVIDERS: PCP Internal Medicine; Visit Provider Internal Medicine
DX: R11.2 Nausea with vomiting, unspecified (principal); R14.2 Eructation
CPT/HCPCS: 78264; A9541

== ENCOUNTER 2023-11-02 09:13 | Outpatient (REF) | payer MEDICAID, SELFPAY ==
[2023-11-02 10:23] LABS: Hematocrit 47.4 % (42.0-52.0); Hemoglobin 16.1 g/dl (14.0-18.0); Mean Corpuscular Volume 94.2 fL (80.0-98.0); Mean Platelet Volume 8.9 fL (9.4-12.4); Platelet Count 266 X10*3/uL (160-400); Red Blood Count 5.03 X10*6/uL (4.60-5.80); White Blood Count 7.8 X10*3/uL (4.8-10.8)
[2023-11-08 01:58] LABS: Testosterone, Total 508 ng/dL (250-1100)
== END 2023-11-02 09:14 | disposition home or self-care (01) ==
LOC: HO.HMGCLDS 09:13
PROVIDERS: PCP Internal Medicine; Visit Provider Urology
DX: N52.01 Erectile dysfunction due to arterial insufficiency (principal); E29.1 Testicular hypofunction
CPT/HCPCS: 36415; 84153; 84402; 84403; 85027

== ENCOUNTER 2023-11-09 11:30 | Outpatient (AMB) | payer MEDICAID, SELFPAY ==
--- NOTE | 2023-11-09 12:04 | MHC.OFFVIS ---
Intake Visit Reasons: 6M Follow Up-CBC/PSA/Testo(set) Intake Note: Patient is Present for Follow Up labs Urology Medication: Testosterone, Sildenafil Antibiotic Allergies: None Blood Thinners:None Recent Labs 11/02/23 PSA: 3.40 Testo: [address] [employer] Web Application Developer Required: No Accompanied by: Self / Same As Patient Allergies No Known Allergies Allergy (Verified 11/09/23 12:07) seasonal Allergy (Unknown, Uncoded 11/09/23 12:07) unknown Medication List - Last Reconciled 11/09/23 by Diego Kennedy MD budesonide DR-ER 3 mg PO DAILY lisinopril 5 mg PO DAILY needle (disp) 18 G (BD Regular [place]) As directed - draw up testosterone omega-3 fatty acids (Fish Oil Concentrate) 1,000 mg PO DAILY safety needles (Easy Touch FlipLock Needle) As directed - administer testosterone sildenafil 100 mg PO DAILY PRN 30 days syringe (disposable) (BD Bulk Syringe Slip Tip) As directed syringe with needle (BD Integra Syringe) As directed- 4/month testosterone cypionate (Depo-Testosterone) 70 mg (0.35 mL) subcut .BIW 30 days HPI Comments Details: Logan is a male. He is a patient of Dr. Daniel. He is seen for the following urologic conditions - hypogonadism - erectile dysfunction Has been on injections Current labs within range Hypogonadism He presents today for further evaluation of complaints regarding hypogonadism - on treatment from his PCP Initial symptoms include erectile dysfunction Yes decreased libido Yes change in mood/depression Yes in muscle size/strength Yes increased fatigue/malaise Yes increased abdominal fat No tender breasts/gynecomastia No hair loss No osteopenia No The onset of symptoms has been gradual lb longstanding Erectile status nocturnal erections do occur but uses Viagra to supplement He has been taking - none Laboratory results 02/02 T 2130 with LH 0.3 - 03/06 T 1300, LH 0.3, 11/04 T 510 F 110 P 2.2, 02/03 971 P 2.2, 08/05 781 2.9 46, 02/04 739, 09/05 794 2.6, 03/09 1230 4.5 (Tuesday injection, labs), 05/07 38 3.3 44, 11/07 T 510 3.4 47 Current therapy includes injectable injectable testosterone - 10/21 0.75 cc weekly Tuesday Labs Response to therapy has been improved baseline symptoms Prior therapy includes injectable testosterone PFSH Medical History CKD (chronic kidney disease) stage 2, GFR 60-89 ml/min Hypertension PVC's (premature ventricular contractions) COPD (chronic obstructive pulmonary disease) History of meningitis Migraine Hypogonadism in male Surgical History History of colonoscopy History of repair of left rotator cuff History of repair of right rotator cuff Family History Father Liver disease Mother HTN (hypertension) Heavy smoker Heart disease Social History Patient Tobacco Use Status: Former Tobacco user Tobacco use type: Cigarette Cigarette Packs Per Day: 1 Years Smoked: 37, smoked 1-1.5 ppd, quit 13 years prior Substance Use Type: Marijuana Current occupational status: employed Current occupation: [employer] Review of Systems Const Denies chills and Denies fever(s) Card Reports no additional complaints and Denies syncope Resp Denies cough GI Denies abdominal pain and Denies heartburn Reports as per HPI and Denies change in libido Neuro Denies syncope Psych Denies change in libido Endo Denies change in libido Physical Exam Const General: cooperative, healthy appearing, comfortable and no acute distress Orientation/consciousness: patient oriented x3 HEENT Face and sinus: Yes normal facial exam Mouth: moist mucous membranes Neck Neck: Yes normal visual inspection, Yes full ROM and Yes trachea midline Chest Chest palpation & inspection: normal inspection of the chest Resp Effort & Inspection: normal respiratory effort, able to speak in complete sentences and no respiratory distress GI Inspection: Yes normal to inspection Back/Spine/Pelvis Cervical Spine: normal cervical lordosis Thoracic/Lumbar Spine: thoracic and lumbar spine normal to inspection Skin General skin exam: no rashes or lesions noted Neuro General: patient oriented x3, gait normal, tone normal and moves all extremities Extrem General: Yes normal to inspection and Yes capillary refill normal Assessment & Plan Assessment & Plan (1) Hypogonadism in male: Code(s): E29.1 - Testicular hypofunction Category: Medical Plan Refills provided Medications: New safety needles (Easy Touch FlipLock Needle) As directed - administer testosterone 50 ea 0RF E29.1 - Testicular hypofunction syringe (disposable) (BD Bulk Syringe Slip Tip) As directed 50 ea 0RF E29.1 - Testicular hypofunction needle (disp) 18 G (BD Regular [place]) As directed - draw up testosterone 50 ea 0RF E29.1 - Testicular hypofunction Changed From testosterone cypionate 140 mg (0.7 mL) subcut QWEEK 30 days 4 mL 5RF To testosterone cypionate (Depo-Testosterone) Twice a week injection 70 mg (0.35 mL) subcut .BIW 4 mL 5RF 30 days Patient Instructions: Imaging studies, laboratory and physical exam results were discussed and reviewed in detail. No major barriers to patient understanding were identified. An opportunity to ask questions regarding the treatment plan was provided. All questions were answered. The patient expressed understanding and agreement with the above treatment plan. The patient is aware they should contact our office by phone for worsening of their current condition or the appearance of new urologic symptoms. Compliance is encouraged with any medications and followup testing that is ordered. It is a privilege to participate in the urologic care of your patient. If you have any questions or concerns regarding treatment for the above conditions, or other urologic issues, please do not hesitate to contact me. The office telephone contact is [phone]. This note is constructed using voice recognition software. While every effort has been made to ensure accuracy vp integration errors may have been included. Yours sincerely, Dr Diego Kennedy MD, ME[facility] - Urology Providers of Expert, Compassionate Care for the Genitourinary System Coding Level of Care Code Est Pt Level 3 (44067) Diagnoses Hypogonadism in male E29.1
== END 2023-11-09 12:28 | disposition home or self-care (01) ==
PROVIDERS: PCP Internal Medicine; Visit Provider Urology
DX: E29.1 Testicular hypofunction (principal)
CPT/HCPCS: 99213

== ENCOUNTER → 2023-11-09 11:30 | Outpatient (BNVA) | payer MEDICAID, SELFPAY | PROVIDERS: PCP Internal Medicine; Visit Provider Urology | DX: E29.1 Testicular hypofunction (principal); N52.9 Male erectile dysfunction, unspecified; Z79.899 Other long term (current) drug therapy | CPT/HCPCS: 99212 ==

== ENCOUNTER 2023-12-21 13:03 | Outpatient (REF) | payer MEDICAID, SELFPAY ==
--- NOTE | ~2023-12-21 | CT_ITS ---
EXAMINATION: CT HEAD WITH CONTRAST CLINICAL INFORMATION: Nausea and vomiting COMPARISON: None available. TECHNIQUE: Contiguous axial imaging was performed from the skull base to vertex following the administration of 85 mL of Omnipaque [address] examination was performed using dose optimization techniques as appropriate, variously including the following: *Automated exposure control *Adjustment of mA and/or kV according to patient size (this includes techniques or standardized protocols for targeted exams where dose is matched to indication/reason for exam; i.e. extremities or head) *Use of iterative reconstruction technique DLP: 958 mGy-cm FINDINGS: There is normal contrast enhancement in the region of the [place]. Sulci and ventricles normal. No intra or extra-axial fluid collection, hemorrhage, mass, enhancing mass, or mass effect. Calvarium is intact. Note is made of moderate mucoperiosteal thickening within the ethmoid sinuses and right maxillary sinus with perhaps superimposed fluid in the right maxillary sinus. The retrobulbar regions are intact. CT/CT head/brain w IV con IMPRESSION: No acute intracranial pathology. Electronically signed by: Matt Wilson MD 12/21/2023 05:18 PM [facility] [place]
[2023-12-21] MEDS: iohexoL 350 MG/ML 75 ML INFUS..BTL 85 ML IV (14:03)
[2023-12-22 07:34] LABS: GFR POC > 60
== END 2023-12-21 13:04 | disposition home or self-care (01) ==
LOC: HO.CT 13:03
PROVIDERS: PCP Internal Medicine; Visit Provider Internal Medicine
DX: R11.2 Nausea with vomiting, unspecified (principal)
CPT/HCPCS: 70460; 82565; Q9967

== ENCOUNTER 2024-04-07 07:37 | Emergency (ER) | payer MEDICAID, SELFPAY ==
--- NOTE | 2024-04-07 | ECG_ITS ---
Test Reason : BACK PAIN, HICCIPS Blood Pressure : */* mmHG Vent. Rate : 85 BPM Atrial Rate : 85 BPM P-R Int : 142 ms QRS Dur : 98 ms QT Int : 374 ms P-R-T Axes : 69 51 12 degrees QTcB Int : 445 ms Normal sinus rhythm Normal ECG When compared with ECG of 26-Jul-2023 14:12, No significant change was found Referred By: Generic ED Physician Electronically Signed By: BETH TODD
--- NOTE | ~2024-04-07 | CT_ITS ---
CLINICAL HISTORY: upper abdominal pain CT abdomen and pelvis with contrast Comparison: CT/PA/SR - CT ABDOMEN PELVIS W IV CON - 07/26/23 20:00 EDT Findings: Lower chest detailed separately. Small hiatal hernia. Stable small hepatic hypodensities most likely small cysts, reportedly stable to 2017 study although remote study not available. Otherwise normal liver. Gallbladder, biliary tree, pancreas, spleen and adrenals intact. Similar nonspecific perinephric stranding. No stones or hydronephrosis. Stable small cyst left kidney. No follow-up required. 3 x 3 cm infrarenal AAA. Similar measurement obtained on prior when measured in a similar fashion. No high-grade stenosis of the renal arteries, celiac trunk or SMA although study not tailored as a CTA. Patent KRISTINE. No bowel obstruction or acute perienteric inflammation. Diverticulosis without features of acute diverticulitis. Normal although elongated appendix. No pathologic adenopathy. Urinary bladder intact. Similarly enlarged prostate. Degenerative changes lumbar spine. No acute or aggressive appearing bone lesion. Impression: No acute process evident. Diverticulosis without diverticulitis. Stable 3 cm infrarenal triple a. No severe appearing stenosis or dissection. Other findings as noted similar to prior. This document has been electronically signed by: Kenan Vasquez MD on 04/07/2024 11:05:27
--- NOTE | ~2024-04-07 | CT_ITS ---
CLINICAL HISTORY: lower chest wall pain CT chest with contrast Comparison: CT/REG/DE/SR - CT CHEST W IV CON - 07/26/23 20:[address] - CT CHEST W IV CON - 07/26/23 19:[address]/REG - CT CHEST WO CON - 02/25/20 08:08 EST Findings: Stable paraseptal and centrilobular emphysema with apical basal gradient. Biapical pleural scarring. Small bilateral pulmonary nodules, all stable to 2020 CT, largest 4 mm in the posterior left apex reference image 23 series 7, 3 mm anterior right upper lobe nodule image image 42, 4 mm perifissural nodule right lung image 75 and along the left interlobar fissure image 78. 2 mm subpleural nodule left lower lobe image 119. No new or progressive nodule. No consolidation, pleural effusion or pneumothorax. Thoracic inlet intact. No thyroid nodules. Normal caliber aorta. No dissection or stenosis. No central pulmonary embolism. Heart size normal. No pericardial effusion. Mild coronary artery calcification. Small hiatal hernia. No acute bone abnormality specifically no apparent rib fracture, callus or deformity. No thoracic compression fracture or sternal fracture. No apparent fracture of either included shoulder. Arthritic changes partially imaged more apparent on the right. Impression: No acute cardiopulmonary process. This document has been electronically signed by: Kenan Vasquez MD on 04/07/2024 10:55:10
[2024-04-07 07:39] VITALS: BP 157/70; PULSE 100; RESP 18; TEMP 36.5; O2SAT 100; BMI 29.0
--- OUTSIDE RECORDS SUMMARY | 2024-04-07 08:00 | XMS_ITS | Continuity of Care Document ---
Author Organization [place] - [facility], [facility] Address [address] [place] [address] Care Team Providers Care Traveling Nurse Name Role Phone MERVAT ANDINO Referring Provider [phone] Assessment Encounter Date Assessment Date Assessment LastModified by Organization Details LastModified Time 03/15/2024 03/15/2024 Patient has 8-month history of chronic intractable hiccups that occur during the day and night. He has undergone medical management without success. Neurology noted cerumen impaction and referred for management. At this time there was no cerumen present but his symptoms were actively occurring. Fiberoptic laryngoscopy was also performed with no lesions of the larynx identified. He has special consultation in [place] in September as well as gastro surgeon at [facility] in the next 2 months. [email or web address] Not available 03/15/2024 11:17:15 Plan of Treatment Reminders Order Date Submit Date Provider Last Modified By Organization Details Last Modified Time Details Appointments None record ed. Lab None record ed. Referral None record ed. Procedures None record ed. Surgeries None record ed. Imaging None record ed. Medication Orders None record ed. Patient TargetsNo targets recorded. Patient InstructionsNo instructions recorded. Reason for Referral None Reported. Problems Name Problem SNOMED Code Status Onset Date Resolution Date Notes Provider Name and Address Organization Details Recorded Time Chronic hiccup 452277360 Active 025 MARCE SHARP MD [address] [place] [address] [place], [phone] , [place] - [facility] 08:51:33 Problem Notes None recorded. Procedures Surgical History Date Name Laterality Status Provider Name and Address Organization Details Recorded Time 03/15/2024 FOL_DP completed MARCE SHARP MD [address] [place] [address], [id number], [facility] - [facility] 03/15/2024 08:51:26 Imaging Results None recorded. Procedure Notes None recorded. Medical Equipment None Reported. Allergies No known drug allergies Medications Name Sig Start Date Stop Date Status Note LastModified by Organization Details LastModified Time loperamide 2 mg capsule TAKE 1-2 CAPSULES BY MOUTH EVERY 4-6 HOURS NEEDED FOR DIARRHEA active Not Available Not Available No t Available ondansetron HCl 4 mg tablet TAKE 1 TABLET BY MOUTH EVERY 8 HOURS NEEDED 03/15 completed Not Available Not Available Not Available prochlorper azine maleate 10 mg tablet TAKE 1 TABLET BY MOUTH TWICE DAILY active Not Available Not Available No t Available omeprazole 40 mg capsule,del ayed release TAKE 1 CAPSULE BY MOUTH EVERY MORNING 03/15 completed Not Available Not Available Not Available sildenafil 100 mg tablet TAKE ONE TABLET BY MOUTH ONCE A DAY NEEDED 60 MINUTES BEFORE SEXUAL ACTIVITY active Not Available Not Available No t Available baclofen 10 mg tablet 03/15 completed Not Available Not Available Not Available chlorpromaz ine 25 mg tablet TAKE 1 TABLET BY MOUTH TWICE DAILY active Not Available Not Available No t Available losartan 25 mg tablet TAKE 1 TABLET BY MOUTH DAILY active Not Available Not Available No t Available lorazepam 1 mg tablet TAKE 1 TABLET BY MOUTH EVERY NIGHT AT BEDTIME 03/15 completed Not Available Not Available Not Available budesonide DR - ER 3 mg capsule,del ayed,extend ed release TAKE 3 CAPSULES BY MOUTH DAILY active Not Available Not Available No t Available testosteron e cypionate 200 mg/mL intramuscul ar oil active Not Available Not Available Not Available ondansetron 4 mg disintegrat ing tablet DISSOLVE 1 TABLET BY MOUTH EVERY 4-6 HOURS FOR NAUSEA AND VOMITING. 03/15 completed Not Available Not Available Not Available chlorpromaz ine 50 mg tablet 03/15 completed Not Available Not Available Not Available metoclopram roslyn 10 mg tablet TAKE 1 TABLET BY MOUTH THREE TIMES DAILY FOR 7 DOSES 03/15 completed Not Available Not Available Not Available BD Integra Syringe 3 mL 21 gauge x 1 1/2 USE DIRECTED USE 8 PER MONTH 03/15 completed Not Available Not Available Not Available Vitals Date Recorded Body height Body mass index (BMI) Body weight Provider Name and Address Organization Details Last Updated DateTime 03/15/2024 180.34 cm 28 kg/m2 55976.07 g Tisha Ignacio [place] - [facility] 03/15/2024 10:51:48 Social History None recorded. Functional Status None recorded. Mental Status None recorded. Family History Nothing Reported. Medical History Condition Response Hypertension Y Kidney Disease Y Past Encounters Encounter ID Performer Location Encounter Start Date Encounter Closed Date Diagnosis/Indication Diagnosis SNOMED-CT Code Diagnosis ICD10 Code Diagnosis Note [id number] MARCE SHARP MD [facility] [address] [address] 03/15/2024 10:33:39 03/15/2024 11:16:26 Chronic hiccup 204862806 R06.6 Health Concerns Section Related Observation LastModified by Organization Detai ls LastModified Time None Recorded Concern Status LastModified by Organization Details LastModified Time None Recorded Payers Encounter Date Sequence Insurance Name Policy Number Policy Vo Covered Member ID Vo Member ID Guarantor Name 03/15/2024 1 [place] [facility] Logan Boland [id number] Logan Guerrero Jr Notes Date Note Type Note Provider Name and Address Organization Details Recorded Time 03/15/2024 text/html Intractable hiccupsOnset 07/17/2023ay and night even while sleepingvomit 6-8 times dailyGI workup was jwvofo70/26/[address] Box -noted small left cerumenChest CT benignbrain imaging per neurology also benignfailed trial of chlorpromazine, prochloperazine, metoclopramide, ondansetron, lorazepam, baclofen, omeprazole PCP tried wax soften drops and sx 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
--- OUTSIDE RECORDS SUMMARY | 2024-04-07 08:01 | XMS_ITS | Data Portability ---
Author Organization [place] - [facility], Allergy Address [address] [address] Care Team Providers Care Payroll Processor Name Role Phone MERVAT ANDINO Referring Provider Assessment Encounter Date Assessment Date Assessment LastModified [...] larynx identified. He has special consultation in [place] in September as well as gastro surgeon at [facility] in the next 2 months. [email or web address] [...] Address Organization Details Recorded Time Chronic hiccup 002017069 Active 025 MARCE SHARP MD [address] [place] [address] [place], [phone] , [place] - [facility] 08:51:33 Problem Notes None recorded. Procedures Surgical History Date Name Laterality Status Provider Name and Address Organization Details Recorded Time 03/15/2024 FOL_DP completed MARCE SHARP MD [address] [place] [address],[address] [place], [address], [facility] 03/15/2024 08:51:26 Imaging Results None recorded. Procedure [...] Updated DateTime 03/15/2024 180.34 cm 28 kg/m2 39869.07 g Tisha Ignacio [place] - [facility] 03/15/2024 10:51:48 Social History None recorded. Functional Status None recorded. Mental Status None recorded. Family History Nothing Reported. Medical History Condition Response Hypertension Y Kidney Disease Y Past Encounters Encounter ID Performer Location Encounter Start Date Encounter Closed Date Diagnosis/Indication Diagnosis SNOMED-CT Code Diagnosis ICD10 Code Diagnosis Note [id number] MARCE SHARP MD [facility] [address] [address] 03/15/2024 10:33:39 03/15/2024 11:16:26 Chronic hiccup 289093359 R06.6 Health Concerns Section Related Observation LastModified by Organization Detai ls LastModified Time None Recorded Concern Status LastModified by Organization Details LastModified Time None Recorded Advance Directives Directive None Recorded Payers Encounter Date Sequence Insurance Name Policy Number Policy Vo Covered Member ID Vo Member ID Guarantor Name 03/15/2024 1 [place] [facility] Logan Boland [id number] Logan Guerrero Jr Notes Date Note Type Note Provider Name and Address Organization Details Recorded Time 03/15/2024 text/html Intractable hiccupsOnset 07/17/2023ay and night even while sleepingvomit 6-8 times dailyGI workup was cyzcqq08/26/[address] Box -noted small left cerumenChest CT benignbrain imaging per neurology also benignfailed trial of chlorpromazine, prochloperazine, metoclopramide, ondansetron, lorazepam, baclofen, omeprazole PCP tried wax soften drops and sx persist 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
--- OUTSIDE RECORDS SUMMARY | 2024-04-07 08:01 | XMS_ITS ---
Author Organization [facility] Address [address] [place] [address] Care Team Providers Care Powerplant Operator Name Role Phone Eduardo Daniel MD Primary Care Provider Unavailab Armin Garcia Unavailable [phone] REASON FOR VISIT surgery consult Encounters Encounter Location Date Provider Diagnosis [facility] [address] [place] [address] 03/21/2024 Armin Jones PLAN OF TREATMENT Next Appt Details Provider Name:Armin Jones , 06/26/2024 02:40:00 PM, [address], [address], [place], [address],
--- OUTSIDE RECORDS SUMMARY | 2024-04-07 08:01 | XMS_ITS ---
Author Organization [facility] Address [address] [place] [address] Care Team Providers Care Director Of Quality Control Name Role Phone Eduardo Daniel MD Primary Care Provider Unavailab Armin Garcia Unavailable [phone] REASON FOR VISIT Need esophageal motility study Encounters Encounter Location Date Provider Diagnosis [facility] [address] [place] [address] 02/20/2024 Armin Jones PLAN OF TREATMENT Next Appt Details Provider Name:Armin Jones , 06/26/2024 02:40:00 PM, [address], [address], [place], [address],
--- OUTSIDE RECORDS SUMMARY | 2024-04-07 08:01 | XMS_ITS ---
Author Organization [facility] [place] [facility] Address [address] [place] [address] Care Team Providers Care Catering Director Name Role Phone Eduardo Daniel MD Primary Care Provider Armin Pandya Unavailable [phone] ALLERGIES No Known Allergies REASON FOR VISIT Patient presents today for colitis MEDICATIONS Medication SIG (Take, Route, Frequency, Duration) Notes Start Date End Date Status Imodium A-D 2 MG 1 or 2 Orally Every 4 to 6 hours as needed for diarrhea for 30 days Active Budesonide 3 MG 3 Orally Once a day for 90 days Active Zinc Active Amino Acid Active Ondansetron 4 MG 1 tablet on the tong ue and allow to dissolve Orally Every 4 to 6 hours for nausea and vomiting. You can also take one every morning and every afternoon to try to prevent the episodes of belching/vomiting, etc in the first place. for 30 day(s) 12/06/2023 Active Testosterone Cypionate as directed DIRECTED Active Multi Vitamin/Minerals - as directed Ora lly once a day Active Omeprazole 40 MG TAKE 1 CAPSULE BY [facility] EVERY MORNING for 30 Active Fish Oil 1000 MG 1 capsule Orally Once a day Active Losartan Potassium 25 MG TAKE 1 TABLET B Y MOUTH EVERY DAY Oral for 90 Active Protein Active Vitamin C Active IMMUNIZATIONS Vaccine Route Administration Date Status Comme nts Influenza Unknown 03/21/2024 Refused SOCIAL HISTORY Tobacco Use: Social History Observation Description Date Details (start date - stop date) Former Smoker 05/26/1978 - 2009 Sex Assigned At : Social History Observation Description Sex Assigned At Unknown Tobacco Use/Smoking Question Answer Notes Patient is a former smoker When did you start smoking? 05/26/1978 When did you stop smoking? 2009 How long has it been since you last smoked? 5-10 years Alcohol Screen Question Answer Notes Did you have a drink contain ing alcohol in the past year? Yes How often did you have a dri nk containing alcohol in the past year? Never (0 point) How many drinks did you have on a typical day when you were drinking in the past year? 1 or 2 drinks (0 point) How often did you have 6 or more drinks on one occasion in the past year? Never (0 point) Points 0 Interpretation Negative VITAL SIGNS BMI 28.73 kg/m2 03/21/2024 Blood pressure systolic 000 mm Hg 03/21/19 25 Blood pressure diastolic 00 mm Hg 025 Height 71 in 03/21/2024 Temperature 97.7 degrees Fahrenheit 03/21/19 25 Weight 206 lbs 03/21/2024 Encounters Encounter Location Date Provider Diagnosis [facility] [address] [place] [address] 03/21/2024 Armin iKm R06.6 ; [place] and vomiting, intractability of vomiting not specified, unspecified vomiting type R11.2 and Lymphocytic colitis K52.832 ASSESSMENTS Encounter Date Diagnosis Assessment Notes Treatment Notes Treatment Clinical Notes 03/21/2024 Julio (ICD-10 - R06.6) Follow up with the surgeons Dr. Munroe at [facility] and Dr. Pearson at [facility] regarding question of hiatal hernia surgery. You can try the Chlorpromazine(Th orazine) again to see if that helps---watch for symptoms of Tardive Dyskinesia(moveme nts or facial twitches) You can try the daily omeprazole again to see if that helps 03/21/2024 Nausea and vomiting, intractability of vomiting not specified, unspecified vomiting type (ICD-10 - R11.2) 03/21/2024 Lymphocytic colitis (ICD-10 - K52.832) PLAN OF TREATMENT Medication Medication Name Sig Start Date Stop Date Notes Omeprazole 40 MG TAKE 1 CAPSULE BY MO UTH EVERY MORNING for 30 Treatment Notes Assessment Notes Julio Follow up with the surgeons Dr. Munroe at [facility] and Dr. Pearson at [facility] regarding question of hiatal hernia surgery. You can try the Chlorpromazine(Thorazine) again to see if that helps---watch for symptoms of Tardive Dyskinesia(movements or facial twitches) You can try the daily omeprazole again to see if that helps Next Appt Details Follow Up: July 2024, Re ason: Provider Name:Armin Jones , 06/26/2024 02:40:00 PM, [address], [address], [place], [address], Progress Notes * Examination Category Sub-Category Detail Notes General Examination GENERAL APPEARANCE: pleasant , well nourished, well developed, in no acute distress HEAD: EYES: sclera non-icteric EARS: NOSE: THROAT: NECK/THYROID: no cervical lymphade nopathy, neck supple HEART: S1, S2 normal CHEST: LUNGS: clear to auscultatio n bilaterally ABDOMEN: normal bowel sounds, no guarding or rigidity, no guarding or rigidity, no masses palpable, soft, nontender, nondistended NEUROLOGIC: alert and oriented SKIN: nonjaundiced, no spi da angiomata EXTREMITIES: no edema PERIPHERAL PULSES: BACK: BREASTS: MUSCULOSKELETAL: MALE GENITOURINARY: LYMPH NODES: RECTAL EXAM: FEMALE GENITOURINARY: ORAL CAVITY: mucosa moist
[2024-04-07 08:10] LABS: MANUAL DIFF FLAG NO
[2024-04-07 08:13] LABS: Basophils Percent Auto 0.3 % (0-2); Eosinophils Absolute Auto 0.1 X10*3/uL (0.0-0.4); Eosinophils Percent Auto 1.2 % (0-4); Hematocrit 48.2 % (42.0-52.0); Hemoglobin 16.5 g/dl (14.0-18.0); Imm Gran Abs Auto 0.03 X10*3/uL (0.00-0.03); Imm Gran Pct Auto 0.4 % (0.0-0.4); Lymphocytes Absolute Auto 0.9 X10*3/uL (1.2-4.9); Lymphocytes Percent Auto 11.7 % (20-40); Mean Corpuscular HGB Conc 34.2 g/dl (31.0-36.0); Mean Corpuscular Hemoglobin 31.8 pg (27.0-33.0); Mean Corpuscular Volume 92.9 fL (80.0-98.0); Mean Platelet Volume 8.7 fL (9.4-12.4); Monocytes Absolute Auto 0.8 X10*3/uL (0.1-1.2); Monocytes Percent Auto 10.7 % (2-11); Neutrophils Absolute Auto 5.8 x10*3/uL (2.0-8.3); Neutrophils Percent Auto 75.7 % (45-73); Platelet Count 258 X10*3/uL (160-400); Red Blood Count 5.19 X10*6/uL (4.60-5.80); Red Cell Distribution Width 13.1 % (11.0-16.0); White Blood Count 7.7 X10*3/uL (4.8-10.8)
[2024-04-07 08:29] LABS: Alanine Aminotransferase 42 U/L (0-40); Alkaline Phosphatase 78 U/L (39-117); Anion Gap 11 (12-20); Aspartate Amino Transferase 43 U/L (5-37); Bilirubin Total 0.9 mg/dL (0.0-1.0); Blood Urea Nitrogen 17 mg/dL (9-16); Calcium 8.9 mg/dL (8.4-10.2); Carbon Dioxide 27 mmol/L (22-29); Chloride 104 mmol/L (96-108); Creatinine Clr Calc Pharmacy 78.9; Estimated Glomerular Filt Rate > 60; Glucose Random 98 mg/dL (60-115); Potassium 3.9 mmol/L (3.3-5.1); Sodium 138 mmol/L (135-145); Total Protein 7.1 g/dL (6.5-8.0)
--- NOTE | 2024-04-07 08:46 | ED.GENADULT ---
HPI - General Adult General Chief complaint: General Medical Stated complaint: potential stomach & breathing issues Time Seen by Provider: 04/07/24 08:38 Source: patient Mode of arrival: ambulatory Limitations: no limitations History of Present Illness HPI narrative: This is 62 years old male with history of intractable hiccups, presented to emergency department complaining of vomiting belching since yesterday. The vomiting x7 yesterday. He is complaining of back pain as well. 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 for his chronic hiccups Onset (ago): day(s) (1) Location: abdomen Radiation: non-radiation Severity: moderate Pain Consistency: constant Relieving factors: none Exacerbating factors: none Associated symptoms: denies other symptoms Related Data Home Medications ?Medication ?Instructions ?Recorded ?Confirmed budesonide 3 mg 3 mg PO DAILY 03/19/20 11/09/23 capsule,delayed,extended release omega-3 fatty acids 1,000 mg 1,000 mg PO DAILY 03/19/20 11/09/23 capsule (Fish Oil Concentrate) Previous Rx's ?Medication ?Instructions ?Recorded lisinopril 5 mg tablet 5 mg PO DAILY #90 tabs 12/12/19 sildenafil 100 mg tablet 100 mg PO DAILY PRN sexual 10/07/23 activity 30 days #30 tabs needle (disp) 18 G 18 gauge x 1 #50 ea 11/09/23 (BD Regular Bevel Hope[place]) safety needles 23 gauge x 5/8 #50 ea 11/09/23 (Easy Touch FlipLock Needle) syringe (disposable) 1 mL (BD Bulk #50 ea 11/09/23 Syringe Slip Tip) testosterone cypionate 200 mg/mL 70 mg (0.35 mL) subcut .BIW 30 11/09/23 intramuscular oil days #4 mL (Depo-Testosterone) syringe with needle 3 mL 21 gauge #30 ea 12/26/23 x 1 1/2 (BD Integra Syringe) Allergies Allergy/AdvReac Type Severity Reaction Status Date / Time No Known Allergies Allergy Verified 04/07/24 07:44 seasonal Allergy Unknown unknown Uncoded 04/07/24 07:44 Review of Systems Constitutional: Constitutional: Reports no additional constitutional complaints ENT: Reports system reviewed and no additional complaints, except as documented Cardiovascular: Cardiovascular: Reports no additional cardiovascular complaints Respiratory: Respiratory: Reports no additional respiratory complaints PMFSH Past Medical History [facility] / [facility] Narrative: Intractable hiccups Medical History Personal history of tobacco use CKD (chronic kidney disease) stage 2, GFR 60-89 ml/min Hypertension PVC's (premature ventricular contractions) COPD (chronic obstructive pulmonary disease) History of meningitis Migraine Hypogonadism in male Surgical History History of colonoscopy History of repair of left rotator cuff History of repair of right rotator cuff Family History Family History Father Liver disease Mother HTN (hypertension) Heavy smoker Heart disease Social History Social History Patient Tobacco Use Status: Former Tobacco user Tobacco use type: Cigarette Cigarette Packs Per Day: 1 Years Smoked: 37, smoked 1-1.5 ppd, quit 13 years prior Substance Use Type: Marijuana Current occupational status: employed Current occupation: [employer] Physical Exam ED Vital Signs: Vital Signs - 24 hr 04/07/24 07:39 04/07/24 11:22 04/07/24 13:46 Temperature 97.7 F 97.7 F 97.7 F Pulse Rate 100 66 74 Respiratory Rate 18 16 16 Blood Pressure 157/70 H 152/70 H 163/74 H Pulse Oximetry 100 98 98 Oxygen Delivery Method Room Air Room Air Room Air BMI result Body Mass Index 29.0 He looks well is not toxic-appearing his vital signs are stable Const General: cooperative, comfortable and no acute distress Nutritional Appearance: average body habitus Orientation/consciousness: patient oriented x3 Limitations: no limitations HENMT Other: Examination of the head eyes ears nose and throat normal Head: Yes normal to inspection Ears: external ears normal General nose exam: Normal external nose present Face and sinus: Yes normal facial exam Mouth: Normal oral and palatal mucosa present Neck Neck: Yes normal visual inspection Resp Effort & Inspection: normal respiratory effort Cardio Jugular venous distension: no JVD Rate: regular rate Rhythm: regular rhythm GI Inspection: Yes normal to inspection Palpation (GI): Soft to palpation Skin General skin exam: no rashes or lesions noted and elasticity normal Lesions: no lesions Rashes: no rashes Neuro General: patient oriented x3 Cranial nerves: Yes CN's II-XII intact bilaterally Course Reevaluation(s) Reevaluation #1: Workup is essentially negative including CT scan of the abdomen and chest labs normal, his hicupps is chronic intractable Time: 16:13 Medications Administered Discontinued Medications Generic Name Dose Route Start Last Admin Trade Name Óscarq PRN Reason Stop Dose Admin Diphenhydramine HCl 25 mg 04/07/24 08:43 04/07/24 09:27 Diphenhydramine Hcl 50 Mg/Ml Vial IVPUSH 04/07/24 08:44 25 mg ONCE ONE Administration Sodium Chloride 1,000 mls @ 999 mls/hr 04/07/24 08:45 04/07/24 11:22 Ns IVCONT 04/07/24 09:45 Infused .Q1H1M LUKASZ Infusion Iohexol 85 ml 04/07/24 09:14 04/07/24 09:15 Iohexol 350 Mg/Ml 100 Ml Infus..Btl IV 04/07/24 09:15 85 ml ONCE ONE Administration Metoclopramide HCl 10 mg 04/07/24 08:43 04/07/24 09:28 Metoclopramide Hcl 10 Mg/2 Ml Vial IVPUSH 04/07/24 08:44 10 mg ONCE ONE Administration Medical Decision Making Medical Decision Making [facility] Narrative: Patient presented with a chief complaint of abdominal pain nausea vomiting he has history of intractable workup we will administer IV fluids metoclopramide we will do imaging Differential Diagnosis Differential Diagnoses: The differential diagnosis associated with the presentation includes Gastroenteritis/gastritis/peptic ulcer disease Admission/Observation Consideration of admission/observation: Escalation of care including admission/observation considered Lab Data [facility] Lab Attestation statement: I reviewed the patient's lab results. 04/07/24 08:02 04/07/24 08:02 Labs: Lab Results 04/07/24 04/07/24 Range/Units 08:02 08:48 WBC 7.7 (4.8-10.8) X10*3/uL RBC 5.19 (4.60-5.80) X10*6/uL Hgb 16.5 (14.0-18.0) g/dl Hct 48.2 (42.0-52.0) % MCV 92.9 (80.0-98.0) fL MCH 31.8 (27.0-33.0) pg MCHC 34.2 (31.0-36.0) g/dl RDW 13.1 (11.0-16.0) % Plt Count 258 (160-400) X10*3/uL MPV 8.7 L (9.4-12.4) fL Immature Gran % (Auto) 0.4 (0.0-0.4) % Neut % (Auto) 75.7 H (45-73) % Lymph % (Auto) 11.7 L (20-40) % [place] % (Auto) 10.7 (2-11) % Eos % (Auto) 1.2 (0-4) % Baso % (Auto) 0.3 (0-2) % Lymph # (Auto) 0.9 L (1.2-4.9) X10*3/uL [place] # (Auto) 0.8 (0.1-1.2) X10*3/uL Eos # (Auto) 0.1 (0.0-0.4) X10*3/uL Baso # (Auto) 0.0 (0.0-0.2) X10*3/uL Abs Immat Gran (auto) 0.03 (0.00-0.03) X10*3/uL Absolute Neuts (auto) 5.8 (2.0-8.3) x10*3/uL Absolute Nucleated RBC 0.000 (0.0-0.012) X10*3/uL Nucleated RBC % (auto) 0.0 (0.0-0.2) /100WBC Sodium 138 (135-145) mmol/L Potassium 3.9 (3.3-5.1) mmol/L Chloride 104 (96-108) mmol/L Carbon Dioxide 27 (22-29) mmol/L Anion Gap 11 L (12-20) BUN 17 H (9-16) mg/dL Creatinine 1.09 (0.5-1.4) mg/dL Estim Creat Clear Calc 78.9 Estimated GFR > 60 Random Glucose 98 (60-115) mg/dL Calcium 8.9 D (8.4-10.2) mg/dL Total Bilirubin 0.9 (0.0-1.0) mg/dL AST 43 H (5-37) U/L ALT 42 H (0-40) U/L Alkaline Phosphatase 78 (39-117) U/L Total Protein 7.1 (6.5-8.0) g/dL Albumin 4.0 (3.5-5.0) g/dL Lipase 15 (8-78) U/L Urine Color Yellow Urine Appearance Clear Urine pH 7.0 (5.0-9.0) Ur Specific [place] 1.025 (1.005-1.025) Urine Protein 30 (1+) H (Neg-Trace) mg/dL Urine Glucose (UA) Negative (Negative) mg/dL Urine Ketones Trace (Negative) mg/dL Urine Blood Negative (Negative) Urine Nitrite Negative (Negative) Ur Leukocyte Esterase Negative (Negative) Urine RBC 0-2 (0-2) /HPF Urine WBC 0-5 (0-5) /HPF Ur Squamous Epith Cells 0-2 (0-2) /HPF Urine Bacteria None Seen (None Seen) Hyaline Casts 0-2 (0-2) /LPF Independent Interpretation I performed an independent interpretation of an: CT Scan Interpretation: NAD Radiology Impression Discussion of test interpretation with radiology: I have reviewed the radiologist's reading. Radiologist Impression: . No stones or hydronephrosis. Stable small cyst left kidney. No follow-up required. 3 x 3 cm infrarenal AAA. Similar measurement obtained on prior when measured in a similar fashion. No high-grade stenosis of the renal arteries, celiac trunk or SMA although study not tailored as a CTA. Patent KRISTINE. No bowel obstruction or acute perienteric inflammation. Diverticulosis without features of acute diverticulitis. Normal although elongated appendix. No pathologic adenopathy. Urinary bladder intact. Similarly enlarged prostate. Degenerative changes lumbar spine. No acute or aggressive appearing bone lesion. Impression: No acute process evident. Diverticulosis without diverticulitis. Stable 3 cm infrarenal triple a. No severe appearing stenosis or dissection. Other findings as noted similar to prior. This document has been electronically signed by: Kenan Vasquez MD on 04/07/2024 11:05:27 Independent Historian Clinical information obtained from an independent historian. History obtained from or confirmed by: Other (sister in law) Discharge Plan Discharge Clinical Impression: Intractable hiccups Vomiting Qualifiers: Vomiting type: unspecified Nausea presence: unspecified Qualified Code(s): R11.10 - Vomiting, unspecified Patient Disposition: Home, Self-Care Instructions: Hiccups (ED), Acute Nausea and Vomiting (ED) Additional Instructions: The CT scan of the abdomen and pelvis showed no acute pathology, also use CT scan of the chest showed no acute pathology, your blood work was normal including white cell count hemoglobin electrolytes. Please follow-up with your ground operations superintendent return to the emergency room if you worse Prescriptions: No Action lisinopril 5 mg tablet 5 mg PO DAILY Qty: 90 1RF sildenafil 100 mg tablet 100 mg PO DAILY PRN (Reason: sexual activity) 30 Days Qty: 30 6RF Rx Instructions: administer 60 minutes before intended activity (DME) syringe with needle [BD Integra Syringe] 3 mL 21 gauge x 1 1/2 syringe See Rx Instructions .ROUTE .MEDSUPPLY Qty: 30 1RF Rx Instructions: As directed- 8/month budesonide 3 mg capsule,delayed,extend.release 3 mg PO DAILY omega-3 fatty acids [Fish Oil Concentrate] 1,000 mg capsule 1,000 mg PO DAILY testosterone cypionate [Depo-Testosterone] 200 mg/mL oil 70 mg subcut .BIW 30 Days Qty: 4 5RF Rx Instructions: Twice a week injection (DME) BD Bulk Syringe Slip Tip 1 mL syringe See Rx Instructions miscellaneous .MEDSUPPLY Qty: 50 0RF Rx Instructions: As directed (DME) needle (disp) 18 G [BD Regular Bevel Hopewell] 18 gauge x 1 needle See Rx Instructions .ROUTE .MEDSUPPLY Qty: 50 0RF Rx Instructions: As directed - draw up testosterone (DME) Easy Touch FlipLock Needle 23 gauge x 5/8 needle See Rx Instructions .ROUTE .MEDSUPPLY Qty: 50 0RF Rx Instructions: As directed - administer testosterone Interventions: ED Discharge Assessment Last Done: 04/07/24 13:46 Discharge Date/Time: 04/07/24 13:47 Print Language: Egyptian
[2024-04-07 08:56] LABS: Appearance Urine Clear; Color Urine Yellow; Glucose Urine UA Negative (Negative); Leukocyte Esterase Urine Negative (Negative); Nitrite Urine Negative (Negative); Specific Gravity - Urine 1.025 (1.005-1.025); UMIC TRIGGER UACC YES; Urine Blood Negative (Negative); Urine Ketones Trace mg/dL (Negative); Urine Protein 30 (1+) mg/dL (Neg-Trace)
[2024-04-07 09:11] LABS: Bacteria Urine None Seen (None Seen); Hyaline Casts Urine 0-2 /LPF (0-2); RBC Urine 0-2 /HPF (0-2); Squamous Epithelial Cell Urine 0-2 /HPF (0-2); WBC Urine 0-5 /HPF (0-5)
[2024-04-07] MEDS: iohexoL 350 MG/ML 100 ML INFUS..BTL 85 ML IV (09:15)
[2024-04-07 09:23] LABS: Lipase 15 U/L (8-78)
[2024-04-07] MEDS: diphenhydrAMINE HCL 50 MG/ML VIAL 25 MG IVPUSH (09:27)
[2024-04-07] MEDS: Metoclopramide HCl 10 MG/2 ML VIAL IVPUSH (09:28)
[2024-04-07] MEDS: 0.9 % Sodium Chloride 1,000 ML 999 ML IVCONT (09:32)
[2024-04-07 11:22] VITALS: BP 152/70; PULSE 66; RESP 16; TEMP 36.5; O2SAT 98
--- NOTE | 2024-04-07 11:33 | PC.NURSE ---
Assumed care of this patient at 1100, patient resting quietly on stretcher at this time, observed walking to and back from bathroom with steady gait, VSS, denies pain.
[2024-04-07 13:46] VITALS: BP 163/74; PULSE 74; RESP 16; TEMP 36.5; O2SAT 98
== END 2024-04-07 13:47 | disposition home or self-care (01) ==
PROVIDERS: Emergency Provider Emergency Medicine; PCP Internal Medicine
DX: R06.6 Hiccough (principal); M54.6 Pain in thoracic spine; M54.50 Low back pain, unspecified; R11.2 Nausea with vomiting, unspecified; R10.9 Unspecified abdominal pain; Z87.891 Personal history of nicotine dependence; Z79.899 Other long term (current) drug therapy
CPT/HCPCS: 36415; 71260; 74177; 80053; 81001; 81003; 83690; 85025; 93005; 96361; 96374; 96375; 99284; 99285; J1200; J2765; Q9967

== ENCOUNTER → 2024-04-07 07:57 | Outpatient (BNV) | payer MEDICAID, SELFPAY | PROVIDERS: Emergency Provider Emergency Medicine; PCP Internal Medicine; Visit Provider Internal Medicine | DX: M54.9 Dorsalgia, unspecified (principal) | CPT/HCPCS: 93010 ==

== ENCOUNTER → 2024-04-07 08:44 | Outpatient (BNV) | payer MEDICAID, SELFPAY | PROVIDERS: Emergency Provider Emergency Medicine; PCP Internal Medicine; Visit Provider Radiology Diagnostic Radiology | DX: K57.30 Diverticulosis of large intestine without perforation or abscess without bleeding (principal); R07.89 Other chest pain | CPT/HCPCS: 71260; 74177 ==

== ENCOUNTER 2024-05-02 14:18 | Outpatient (REF) | payer MEDICAID, SELFPAY ==
[2024-05-02 16:52] LABS: Prostate Specific Antigen 2.82 ng/mL (<0.05-4.0)
[2024-05-10 13:10] LABS: Testosterone, Free 96.2 pg/mL (35.0-155.0); Testosterone, Total 421 ng/dL (250-1100)
== END 2024-05-02 14:19 | disposition home or self-care (01) ==
LOC: HO.HMGCLDS 14:18
PROVIDERS: PCP Internal Medicine; Visit Provider Urology
DX: N52.01 Erectile dysfunction due to arterial insufficiency (principal); E29.1 Testicular hypofunction
CPT/HCPCS: 36415; 84153; 84402; 84403

== ENCOUNTER 2024-06-05 09:22 | Outpatient (AMB) | payer MEDICAID, SELFPAY ==
--- NOTE | 2024-06-05 09:22 | A.OFFVIS_ITS ---
Intake Visit Reasons: 6m/PSA/Testo Intake Note: Logan 64 yr old presents today via video call appointment for his 6 month follow up S/P PSA and testosterone. Allergies No Known Allergies Allergy (Verified 04/07/24 07:44) seasonal Allergy (Unknown, Uncoded 04/07/24 07:44) unknown HPI Comments Details: Logan is a male. He is a patient of Dr. Daniel. He is seen for the following urologic conditions - hypogonadism - erectile dysfunction Telemedicine Evaluation 15 min Consultation [facility] Video Labs in range Continue current therapy Hypogonadism He presents today for further evaluation of complaints regarding hypogonadism - on treatment from his PCP Initial symptoms include erectile dysfunction Yes decreased libido Yes change in mood/depression Yes in muscle size/strength Yes increased fatigue/malaise Yes increased abdominal fat No tender breasts/gynecomastia No hair loss No osteopenia No The onset of symptoms has been gradual lb longstanding Erectile status nocturnal erections do occur but uses Viagra to supplement He has been taking - none Laboratory results 02/02 T 2130 with LH 0.3 - 03/06 T 1300, LH 0.3, 11/04 T 510 F 110 P 2.2, 02/03 971 P 2.2, 08/05 781 2.9 46, 02/04 739, 09/05 794 2.6, 03/09 1230 4.5 (Tuesday injection, labs), 05/07 38 3.3 44, 11/07 T 510 3.4 47, 05/08 421 96 Current therapy includes injectable injectable testosterone - 12/04 0.75 cc weekly Tuesday Labs Response to therapy has been improved baseline symptoms Prior therapy includes injectable testosterone PFSH Medical History Personal history of tobacco use CKD (chronic kidney disease) stage 2, GFR 60-89 ml/min Hypertension PVC's (premature ventricular contractions) COPD (chronic obstructive pulmonary disease) History of meningitis Migraine Hypogonadism in male Surgical History History of colonoscopy History of repair of left rotator cuff History of repair of right rotator cuff Family History Father Liver disease Mother HTN (hypertension) Heavy smoker Heart disease Social History Patient Tobacco Use Status: Former Tobacco user Tobacco use type: Cigarette Cigarette Packs Per Day: 1 Years Smoked: 37, smoked 1-1.5 ppd, quit 13 years prior Substance Use Type: Marijuana Current occupational status: employed Current occupation: [employer] Review of Systems Const All systems reviewed & are unremarkable except as noted in HPI and below Reports no additional complaints Resp Reports no additional complaints GI Reports no additional complaints Reports as per HPI Musc Reports no additional complaints Physical Exam Telemedicine evaluation Appropriate responses Regular breathing rate and rhythm HEENT Head: Yes normal to inspection Ears: hearing grossly normal bilaterally Eyes General: appearance normal, both eyes and all related structures Neck Neck: Yes normal visual inspection Chest Chest palpation & inspection: normal inspection of the chest Resp Effort & Inspection: normal respiratory effort and able to speak in complete sentences Telehealth Telehealth Telehealth Platform: [employer] Location of provider rendering services: practice address Location of patient: other Patient Identification confirmed using: Name, : Yes Telehealth method: video Patient verbally consented to treatment: Yes Patient verbally consented to billing insurance company: Yes Patient informed of any privacy concerns related to visit: Yes Minutes spent on Phone/Video with Pt.: 15 Assessment & Plan Assessment & Plan (1) Hypogonadism in male: Code(s): E29.1 - Testicular hypofunction Category: Medical (2) Erectile dysfunction due to arterial insufficiency: Code(s): N52.01 - Erectile dysfunction due to arterial insufficiency Category: Medical Plan Six-month follow-up labs office Orders: Orders Prostate Specific Antigen 6 Months E29.1 - Testicular hypofunction Complete Blood Count no Diff 6 Months E29.1 - Testicular hypofunction Testosterone, Total 6 Months E29.1 - Testicular hypofunction Medications: Refilled testosterone cypionate (Depo-Testosterone) Twice a week injection 70 mg (0.35 mL) subcut .BIW 30 days 4 mL 5RF Patient Instructions: This note is constructed using voice recognition software. While every effort has been made to ensure accuracy psychologist clinical errors may have been included. Imaging studies, laboratory and physical exam results were discussed and reviewed in detail. No major barriers to patient understanding were identified. An opportunity to ask questions regarding the treatment plan was provided. All questions were answered. The patient expressed understanding and agreement with the above treatment plan. The patient is aware they should contact our office by phone for worsening of their current condition or the appearance of new urologic symptoms. Compliance is encouraged with any medications and followup testing that is ordered. It is a privilege to participate in the urologic care of your patient. If you have any questions or concerns regarding treatment for the above conditions, or other urologic issues, please do not hesitate to contact me. The office telephone contact is [phone]. Sincerely, Dr Diego Kennedy MD, [facility] - Urology Compassionate Specialist Care for the Genitourinary System Coding Level of Care Code Tele Est Pt Level 3 (22321) Complex EM visit Add On G2211 Diagnoses Hypogonadism in male E29.1 Erectile dysfunction due to arterial insufficiency N52.01
--- OUTSIDE RECORDS SUMMARY | 2024-06-05 10:06 | XMS_ITS | Patient Health Record ---
Author Organization [facility] Address [address] [place] [address] Care Team Providers Care Tire Classifier Name Role Phone Eduardo Daniel MD Primary Care Provider Unavailab Armin Garcia Unavailable [phone] Allergies No Known Allergies Results Component Value Reference Range Notes Pathology Reviewed date:10/11/2023 12:27:17 PM Interpretation: Performing Lab:[facility], [address] [place] [phone] Notes/Report: ------ Name: Logan Boland Age/Sex: 63/M : 1960 Unit#: [id number] Attend Dr: Armin Jones MD Re10/03/23 Status : [facility] Location: [facility] Disch: ------ SPEC : [id number] RECD : 10/04/23 STATUS: ARAVIND ZUÑIGA NUM: [id number] JEMIMA: 10/03/23-1455 [facility] DR: Armin Jones MD ENTERED: 10/04/23- 05 SP TYPE: Surgical OTHR DR: Eduardo Daniel MD ORDERED: HE Stain/9, Gross Micro L4/3, IHC, Special st. 2/3, H. pylori, AB/PAS/3 Diagnosis A. Duodenum, descend ing, biopsy: Duodenal mucosa with preserved villous architecture and increased intraepithelial lymphocytes (see comment). B. Stomach, antrum, biopsy: Gastric antral mucosa with mild reactive gastropathy; negative for Helicob acter pylori, intestinal metaplasia and dysplasia. C. Gastroesophageal junction at 40 cm, biopsy: Active esophagitis with reactive epithelial changes a nd detached fibrinopurulent debris; negative for fungal organisms, intestinal metaplasi a and dysplasia. COMMENT (A): These findings raise the possibility of celiac disease; however other pathologic processes , including H. pylori gastritis, peptic duodenitis, food allergies other than celiac di sease, tropical sprue, viral enteritis, injury caused by drugs, autoimmune enteropat hy, immunodeficiencies and Crohn?s disease can induce intraepithelial lymphocytosis with o r without associated architectural changes. In many cases no definite cause is identified. ? Clinical and serological correlation is recommended. Clinical History Pre-Op Dx: Hiccups, eructation, nausea, vomiting Post-Op Dx: Esophagi tis, hiatal hernia Microscopic Description A-C. Microscopic sec tions examined. No metaplastic changes are seen, supported by AB/PAS stains (A-C); no Helicobacter organisms are seen, supported by H. pylori immunostain (B). Material Received A. Descending duoden um, r/o Giardia B. Gastric antrum C. EG junction at 40 cm Gross Description Received in three parts. Part A: Received in formalin labeled ?descending duodenum, rule out Giardia? are 5 cespedes irregular tissue fra gments each measuring 0.25 cm, submitted in toto in a cassette labeled A. Part B: Received in formalin labeled ?gastric antrum? are 3 cespedes irregular tissue fragments CONTINUED ON NEXT PAGE ------ Name: Logan Boland Age/Sex: 63/M : 1960 Unit#: [id number] Attend Dr: Armin Jones MD Re10/03/23 Status : [facility] Location: [facility] Disch: ------ SPEC : [id number] RECD : 10/04/23 STATUS: ARAVIND ZUÑIGA NUM: [id number] JEMIMA: 10/03/23-[address] [facility] [address]: Armin Jones MD ENTERED: 10/04/23- 05 SP TYPE: Surgical OTHR DR: Eduardo Daniel MD ORDERED: HE Stain/9, Gross Micro L4/3, IHC, Special st. 2/3, H. pylori, AB/PAS/3 Gross Description (Continued) each measuring 0.25 cm, submitted in toto in a cassette labeled B. Part C: Received in formalin labeled ?EG junction at 40 cm? are 3 claudio-cespedes irregular and rectangular tissue fragments ranging from 0.1-0.3 cm with scant debris versus blood, submitted in toto in a cassette labeled C. CEDS Special stains order ed and performed: A/B PAS on A-C; immunostain for H pylori on B. Copies To: Eduardo Daniel MD [facility] [address] [place] [address] Armin Jones MD [facility] GI [address] [place] [address] ------ Signed (signature on file) Macie Storey MD 10/05/23 1205 ------ END OF REPORT Immunoglobulin A Reviewed date:10/24/2023 09:17:46 PM Interpretation: Performing Lab:[facility], [address] [place] [phone] Notes/Report: Immunoglobulin A 365 70-320 mg/dL THIS TEST WAS PERFORMED AT: [facility] [address] [place] [phone] JULIO POLLOCK MD Transglutaminase Ab IgG Reviewed date:10/24/2023 09:18:08 PM Interpretation: Performing Lab:[facility], [address] [place] [phone] Notes/Report: Transglutaminase Ab IgG <1.0 Value Interpretation ----- <15.0 Antibody not detected > or = 15.0 Antibody detected THIS TEST WAS PERFORMED AT: [facility] [address] [place] [phone] JULIO POLLOCK MD Transglutaminase IgA Reviewed date:10/24/2023 09:18:15 PM Interpretation: Performing Lab:[facility], [address] [place] [phone] Notes/Report: Transglutaminase IgA <1.0 Value Interpretation ----- <15.0 Antibody not detected > or = 15.0 Antibody detected THIS TEST WAS PERFORMED AT: [facility] [address] [place] [phone] JULIO POLLOCK MD Gliadin Ab Panel Reviewed date:10/24/2023 09:18:28 PM Interpretation: Performing Lab:[facility], [address] [place] [phone] Notes/Report: Gliadin Deamidated IgA Ab 1.0 Value Interpretation ----- <15.0 Antibody not detected > or = 15.0 Antibody detected Gliadin Deamidated IgG Ab <1.0 Value Interpretation ----- <15.0 Antibody not detected > or = 15.0 Antibody detected THIS TEST WAS PERFORMED AT: [facility] [address] [place] [phone] JULIO POLLOCK MD Endomysial IgA rflx Titer Reviewed date:10/24/2023 09:18:45 PM Interpretation: Performing Lab:[facility], [address] [place] [phone] Notes/Report: Endomysial IgA Antibody Negative Negative THIS TEST WAS PERFORMED AT: [facility]/[address] [phone] OPAL AVILA MD,PHD Endomysial Titer TNP FL upper GI w air Reviewed date:03/02/2024 12:16:15 AM Interpretation: Performing Lab: Notes/Report: [address] [address] Fluoroscopy Report Signed Patient: Logan Boland MR#: [id number] 5 : 1960 Acct:[id number] Age/Sex: 63 / M ADM Date: 10/12/23 Loc: ANA Attending Dr: Armin Jones MD Ordering Physician: Armin Jones MD Date of Service: 10/12/23 Procedure(s): FL upper GI w air Accession Number(s): [id number] cc: Eduardo Daniel MD; Armin Jones MD EXAMINATION: XR FLUOROSCOPY UPPER GI WITH AIR CLINICAL INFORMATION: Dysphagia. Abdominal discomfort. Nausea/vomiting. COMPARISON: None TECHNIQUE: Fluoroscopic air contrast upper GI examination was performed utilizing standard techniques with thin and thick barium and effervescent granules. Numerous spot images were obtained. FINDINGS: Lateral cine images of the oropharynx and hypopharynx demonstrate normal swallow mechanism with normal epiglottic inversion and soft palate elevation. No tracheal penetration, glottic or subglottic aspiration identified. No nasopharyngeal reflux present. Hypopharyngeal structures appear normal without evidence of mass or diverticulum. There is mild cricopharyngeal achalasia present. Dual and single contrast images of the esophagus demonstrate normal caliber and contour. There is a granular appearance of the esophagus mucosa, which suggests esophagitis. and mucosal pattern. No evidence of mass, or ulcerations identified. A nonobstructing Schatzki's ring is present. Esophageal peristalsis is moderately disorganized. Small type I hiatal hernia is present. No significant gastroesophageal reflux was seen during the course of the examination and on reflux views. Dual contrast and single contrast images of the stomach demonstrated a normal contour. Normal fold pattern. No mucosal abnormalities. No masses or ulcerations are seen. Contrast freely passed into the gastric antrum and duodenal bulb without delay. Single and air-contrast images of the duodenal bulb demonstrate no abnormality. The duodenal sweep has a normal appearance, course, and mucosal fold appearance. The imaged proximal jejunum has a normal fold pattern and caliber. FLUOROSCOPY TIME: 4 minutes 17 seconds Number of Spot Images: 6 Number of Cine: 14 DOSE AREA PRODUCT: 2852 uGy-m2 (microgray-meter squared) FL/FL upper GI w air IMPRESSION: 1. Mild cricopharyngeal achalasia. 2. Granular appearance of the esophageal mucosa, suggestive of esophagitis. 3. Nonobstructing Schatzki's ring. 4. Moderately disorganized esophageal peristalsis. 5. Small type I hiatal hernia. This procedure was performed by Lc Mcdonald PA-C, and supervised by Dr. Tom Electronically signed by: Merlin Tom MD 10/13/2023 03:25 PM EDT Dictated By: Lc Mcdonald Signed By: <Electronically signed by Lc Mcdonald in OV> 10/13/23 1525 <Electronically signed by Merlin Tom MD in OV> 01/18/24 1205 DD/ 0822 TD/TT: 10/12/23 0852 Underbaster: [address] [address] Fluoroscopy Report Signed Patient: Jose Manuel Boland rt MR#: [id number] 5 : 1960 Acct:[id number] Age/Sex: 63 / M ADM Date: 10/12/23 Loc: HO.XRAY Attending Dr: Armin Jones MD Ordering Physician: Armin Jones MD Date of Service: 10/12/23 Procedure(s): FL upp er GI w air Accession Number(s): [id number] cc: Eduardo Daniel MD; Armin Jones MD EXAMINATION: XR FLUOROSCOPY UPPER GI WITH AIR CLINICAL INFORMATION: Dysphagia. Abdominal discomfort. Nausea/vomiting. COMPARISON: None TECHNIQUE: Fluoroscopic air con trast upper GI examination was performed utilizing standard techniques with thin and thick barium and effervescent granules. Numerous s pot images were obtained. FINDINGS: Lateral cine images of the oropharynx and hypopharynx demonstrate normal swallow mecha nism with normal epiglottic inversion and soft palate elevation. No tracheal penetration, glottic or subglottic aspiration identifie d. No nasopharyngeal reflux present. Hypopharyngeal structures appear no rmal without evidence of mass or diverticulum. There is mild cricopharyngeal achalasia present. Dual and single cont rast images of the esophagus demonstrate normal caliber and contour. There is a granular appearance of the esophagus mucosa, which sugges ts esophagitis. and mucosal pattern. No evidence of mass, or ulcerations identified. A nonobstructing Schatzki's ring is present. Esophageal peristalsis is moderately disorganized. Small type I hiatal hernia is present. No significant gastroesophageal reflux was seen duri ng the course of the examination and on reflux views. Dual contrast and si ngle contrast images of the stomach demonstrated a normal contour. Norm al fold pattern. No mucosal abnormalities. No masses or ulceration s are seen. Contrast freely passed into the gastric antrum and duodenal bulb without delay. Single and air-contr ast images of the duodenal bulb demonstrate no abnormality. The duo denal sweep has a normal appearance, course, and mucosal fold appeara nce. The imaged proximal jejunum has a normal fold pattern and caliber. FLUOROSCOPY TIME: 4 minutes 17 seconds Number of Spot Images: 6 Number of Cine: 14 DOSE AREA PRODUCT: 2852 uGy-m2 (microgray-meter squared) F L/FL upper GI w air IMPRESSION: 1. Mild cricopharyng eal achalasia. 2. Granular appearan ce of the esophageal mucosa, suggestive of esophagitis. 3. Nonobstructing Schatzki's ring. 4. Moderately disorg anized esophageal peristalsis. 5. Small type I hiat al hernia. This procedure was performed by Lc Mcdonald PA-C, and supervised by Dr. Tom Electronically thania d by: Merlin Tom MD 10/13/2023 03:25 PM EDT RP Dictated By: Nathanael Mcdonald Signed By: <Electron ically signed by Lc Mcdonald in OV> 10/13/23 1525 <Electronically sign ed by Merlin Tom MD in OV> 01/18/24 1205 DD/ 0822 TD/TT: 10/12/23 0852 Underbaster: NM gastric emptying study Reviewed date:10/30/2023 05:56:02 PM Interpretation: Performing Lab: Notes/Report: [address] [address] Nuclear Medicine Report Signed Patient: Logan Boland MR#: [id number] 5 : 1960 Acct:[id number] Age/Sex: 63 / M ADM Date: 10/26/23 Loc: [facility] Attending Dr: Armin Jones MD Ordering Physician: Armin Jones MD Date of Service: 10/26/23 Procedure(s): NM gastric emptying study Accession Number(s): [id number] cc: Eduardo Daniel MD; Armin Jones MD EXAMINATION: NM RADIONUCLIDE SOLID FOOD GASTRIC EMPTYING 4-HOUR STUDY CLINICAL INFORMATION: Nausea and vomiting. COMPARISON: None TECHNIQUE: A standard meal consisting of 4 oz of Egg Beaters brand tagged with 1000 microcuries Tc-99m Sulfur Colloid, 8 oz water and 2 slices of toast with jelly was administered orally to the patient. Images were obtained using a dual head gamma camera in the anterior and posterior projections over of the stomach immediately post ingestion and at hourly intervals up to 4 hours post ingestion. The anterior and posterior counts at each time interval were averaged using the geometric mean and expressed as percentage of the immediate post ingestion counts. FINDINGS: There is good visualization of activity in the stomach immediately post ingestion. As the study progresses, there is good clearance of activity from the stomach and visualization of progressively increasing small bowel activity. By the end of the study, there is almost no retention noted in the stomach. Retention in the stomach at each time interval was: 1 hour 44% (normal 37%-90%) 2 hours 14% (normal 30%-60%) 3 hours 1% 4 dialysis dimension was not performed since only 1% retention was noted at 3 hours interval. NM/NM gastric emptying study IMPRESSION: Normal 4-hour solid food gastric emptying study. For solid meal, rapid gastric emptying is less than 30% at 60 minutes. Delayed gastric emptying criteria is more than 60% remaining at 120 minutes or more than 10% at 240 minutes. The 4-hour value is the best discriminator of a normal or abnormal result). Gastric emptying study grading per JNMT Consensus Recommendations in 2008 (https://tech.snmjournals.org/content/36/1/44) Grade 1 (mild retention): 11-20% at 4h Grade 2 (moderate retention): 21-35% at 4h Grade 3 (severe retention): 36-50% at 4h Grade 4 (very severe retention): >50% retention at 4h Electronically signed by: Bethany Clay MD 10/26/2023 02:17 PM EDT Dictated By: Bethany Clay MD Signed By: <Electronically signed by Bethany Clay MD in OV> 10/26/23 1417 DD/ 0756 TD/TT: 10/26/23 1115 Underbaster: NANDO [address] [address] Nuclear Medicine Report Signed Patient: Jose Manuel Boland MR#: [id number] 5 : 1960 Acct:[id number] Age/Sex: 63 / M ADM Date: 10/26/23 Loc: [facility] Attending Dr: Armin Jones MD Ordering Physician: Armin Jones MD Date of Service: 10/26/23 Procedure(s): NM gas tric emptying study Accession Number(s): [id number] cc: Eduardo Daniel MD; Armin Jones MD EXAMINATION: NM RADIONUCLIDE EMILY D FOOD GASTRIC EMPTYING 4-HOUR STUDY CLINICAL INFORMATION: Nausea and vomiting. COMPARISON: None TECHNIQUE: A standard meal cons isting of 4 oz of Egg Beaters brand tagged with 1000 microcuries Tc- 99m Sulfur Colloid, 8 oz water and 2 slices of toast with jelly was administered orally to the patient. Images were obtained using a olegario l head gamma camera in the anterior and posterior projections over of the stomach immediately post ingestion and at hourly intervals up to 4 hours post ingestion. The anterior and posterior counts at each time interval were averaged using the geometric mean and expressed as percentage of the immediate post ingestion counts. FINDINGS: There is good visualization of activity in the stomach immediately post ingestion. As the st udy progresses, there is good clearance of activity from the stomach and visualization of progressively increasing small bowel activity. By t he end of the study, there is almost no retention noted in the stomach . Retention in the stomach at each time interval was: 1 hour 44% (normal 37%-90%) 2 hours 14% (normal 30%-60%) 3 hours 1% 4 dialysis dimension was not performed since only 1% retention was noted at 3 hours interval. N M/NM gastric emptying study IMPRESSION: Normal 4-hour solid food gastric emptying study. For solid meal, rapi d gastric emptying is less than 30% at 60 minutes. Delayed gastric empt merly criteria is more than 60% remaining at 120 minutes or more than 10% at 240 minutes. The 4-hour value is the best discriminator of a n ormal or abnormal result). Gastric emptying johan dy grading per JNMT Consensus Recommendations in 2008 (https://tech.snmjournals. org/content/36/44) Grade 1 (mild retent ion): 11-20% at 4h Grade 2 (moderate retention): 21-35% at 4h Grade 3 (severe retention): 36-50% at 4h Grade 4 (very severe retention): >50% retention at 4h Electronically thania d by: Bethany Clay MD 10/26/2023 02:17 PM EDT RP Dictated By: Bethany Clay MD Signed By: <Electron icallarsen signed by Bethany Clay MD in OV> 10/26/23 1417 DD/ 0756 TD/TT: 10/26/23 1115 Underbaster: NANDO CT head/brain w con Reviewed date:12/22/2023 07:23:05 AM Interpretation: Performing Lab: Notes/Report: [address] [address] [address] Scan Report Signed Patient: Logan Boland MR#: [id number] 5 : 1960 Acct:[id number] Age/Sex: 63 / M ADM Date: 12/21/23 Loc: HO.CT Attending Dr: Armin Jones MD Ordering Physician: Armin Jones MD Date of Service: 12/21/23 Procedure(s): CT head/brain w IV con Accession Number(s): [id number] cc: Eduardo Daniel MD; Armin Jones MD EXAMINATION: CT HEAD WITH CONTRAST CLINICAL INFORMATION: Nausea and vomiting COMPARISON: None available. TECHNIQUE: Contiguous axial imaging was performed from the skull base to vertex following the administration of 85 mL of Omnipaque [address] examination was performed using dose optimization techniques as appropriate, variously including the following: *Automated exposure control *Adjustment of mA and/or kV according to patient size (this includes techniques or standardized protocols for targeted exams where dose is matched to indication/reason for exam; i.e. extremities or head) *Use of iterative reconstruction technique DLP: 958 mGy-cm FINDINGS: There is normal contrast enhancement in the region of the red devil of Shi. Sulci and ventricles normal. No intra or extra-axial fluid collection, hemorrhage, mass, enhancing mass, or mass effect. Calvarium is intact. Note is made of moderate mucoperiosteal thickening within the ethmoid sinuses and right maxillary sinus with perhaps superimposed fluid in the right maxillary sinus. The retrobulbar regions are intact. CT/CT head/brain w IV con IMPRESSION: No acute intracranial pathology. Electronically signed by: Matt Wilson MD 12/21/2023 05:18 PM EST RP Dictated By: Matt Wilson MD Signed By: <Electronically signed by Matt Wilson MD in OV> 12/21/23 1718 DD/ 1334 TD/TT: 12/21/23 1348 Underbaster: [address] [address] [address] Scan Report Signed Patient: Jose Manuel Boland MR#: [id number] 5 : 1960 Acct:[id number] Age/Sex: 63 / M ADM Date: 12/21/23 Loc: HO.CT Attending Dr: Armin Jones MD Ordering Physician: Armin Jones MD Date of Service: 12/21/23 Procedure(s): CT head/brain w IV con Accession Number(s): [id number] cc: Eduardo Daniel MD; Armin Jones MD EXAMINATION: CT HEAD WITH CONTRAST CLINICAL INFORMATION: Nausea and vomiting COMPARISON: None available. TECHNIQUE: Contiguous axial elena ging was performed from the skull base to vertex following the administration of 85 mL of Omnipaque [address] examination was performed using dose optimization techniques as appropriate, various ly including the following: *Automated exposure control *Adjustment of mA an d/or kV according to patient size (this includes techniques or standa rdized protocols for targeted exams where dose is matched to indication/reason for exam; i.e. extremities or head) *Use of iterative reconstruction technique DLP: 958 mGy-cm FINDINGS: There is normal cont rast enhancement in the region of the red devil of Shi. Sulci and ventricles normal. No intra or extra-axial fluid collection, hemorrhage, mass, enhancing mass, or mass effect. Calvarium is intact. Note is made of mode rate mucoperiosteal thickening within the ethmoid sinuses and right maxillary sinus with perhaps superimposed fluid in the right maxillary sinus. The retrobulbar regions are intact. C T/CT head/brain w IV con IMPRESSION: No acute intracrania l pathology. Electronically thania d by: Matt Wilson MD 12/21/2023 05:18 PM [facility] Dictated By: Matt Wilson MD Signed By: <Electron ically signed by Matt Wilson MD in OV> 12/21/23 1718 DD/ 1334 TD/TT: 12/21/23 1348 Underbaster: Creatinine GFR POC Reviewed date:12/22/2023 01:40:21 PM Interpretation: Performing Lab:[facility], [address] [place] [phone] Notes/Report: [id number] 1.02 >60 1329 HO.CRUZED Creatinine POC 1.0 0.5-1.4 mg/dL GFR POC > 60 Chronic Kidney Disease: Estimated GFR < 60 mL/min/1.73m2 Severe Kidney Disease: Estimated GFR < 15 mL/min/1.73m2 Reason For Referral Referring Provider First Name Eduardo Referring Provider Last Name María Referring Provider Speciality Internal M edicine Referred Organization [facility] Referred Provider Armin Jones Referred Address [address] [place] [id number], Referred Provider Specialty Gastroentero logy General Notes Saba Schumacher 2024 10:47:22 AM >[facility] for visit with Dr. Jones on 06-26-24 Referral Priority Routine Medications Medication SIG (Take, Route, Frequency, Duration) Notes Start Date End Date Status Testosterone Cypionate as directed DIRECTED Active Multi Vitamin/Minerals - as directed Ora lly once a day Active Omeprazole 40 MG TAKE 1 CAPSULE BY [facility] EVERY MORNING for 30 Active Fish Oil 1000 MG 1 capsule Orally Once a day Active Protein Active Imodium A-D 2 MG 1 or 2 Orally Every 4 to 6 hours as needed for diarrhea for 30 days Active Budesonide 3 MG 3 Orally Once a day for 90 days Active Losartan Potassium 25 MG TAKE 1 TABLET B Y MOUTH EVERY DAY Oral for 90 Active Vitamin C Active Zinc Active Amino Acid Active Ondansetron 4 MG 1 tablet on the tong ue and allow to dissolve Orally Every 4 to 6 hours for nausea and vomiting. You can also take one every morning and every afternoon to try to prevent the episodes of belching/vomiting, etc in the first place. for 30 day(s) 12/06/2023 Active Immunizations Vaccine Route Administration Date Status Comme nts Influenza Unknown 06/20/2018 Refused Influenza Unknown 01/17/2019 Refused Influenza Unknown 03/21/2024 Refused Social History Tobacco Use: Social History Observation Description Date Details (start date - stop date) Former Smoker 05/26/1978 - 2009 Tobacco Use/Smoking Question Answer Notes Patient is [...] Never (0 point) Points 0 Interpretation Negative Section Notes: Nonsmoker since 2009; very o ccasional drink Nonsmoker since 2009; very o ccasional drink Nonsmoker since 2009; very o ccasional drink Nonsmoker since 2009; very o ccasional drink Nonsmoker since 2009; very o ccasional drink Nonsmoker since 2009; very o ccasional drink Nonsmoker since 2009; very o ccasional drink Nonsmoker since 2009; very o ccasional drink Nonsmoker since 2009; very o ccasional drink Nonsmoker since 2009; very o ccasional drink Nonsmoker since 2009; very o ccasional drink Nonsmoker since 2009; very o ccasional drink Problems Problem Type SNOMED Code ICD Code Onset Dates Problem Status W/U Status Risk Notes Problem Gastro-esophage al reflux disease without esophagitis (491254623) Gastro-esophageal reflux disease without esophagitis (K21.9) Active confirmed Problem 817726088 Abdominal bloati ng (R14.0) Active confirmed Problem Hiccough (44609245) Hiccough (R06.6) Active confirmed Problem Nausea and vomiting (39786887) Nausea with vomiting, unspecified (R11.2) Active confirmed Problem 79461513 Rectal bleed (K62.5) Active confirmed Problem Erosive esophagitis (95148886) Erosive esophagitis (K22.10) Active confirmed Problem Belching (71323913) Belching (R14.2) Active confirmed Problem 48759328 Diarrhea, unspecified type (R19.7) Active confirmed Problem 37658506 Lymphocytic colitis (K52.832) Active confirmed Problem 681970612 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 Problem Nausea and vomiting (91510208) Nausea and vomiting, intractability of vomiting not specified, unspecified vomiting type (R11.2) Active confirmed Problem Acute vomiting (91275784) Acute vomiting (R11.10) Active confirmed Vital Signs Temperature 97.7 degrees Fahrenheit 03/21/2024 Blood pressure diastolic 00 mm Hg 03/21/2024 Height 71 in 03/21/2024 Blood pressure systolic 000 mm Hg 03/21/2024 Weight 206 lbs 03/21/2024 BMI 28.73 kg/m2 03/21/2024 Encounters Encounter Location Date Provider Diagnosis [facility] [place] Outpatient [address] [place] [id number] 10/03/2023 Armin Jones Gastro-esophageal reflux disease without esophagitis K21.9 ; Hiatal hernia K44.9 ; Erosive esophagitis K22.10 ; Nausea with vomiting, unspecified R11.2 and Belching R14.2 [facility] [address] [place] [phone] 09/29/2023 Armin Jones Belching R14.2 ; [place]amberto sea with vomiting, unspecified R11.2 ; Hiccough R06.6 and Lymphocytic colitis K52.832 [facility] [address] [place] [phone] 11/22/2023 Armin Jones Abdominal bloating R14.0 ; Belching R14.2 ; Hiccough R06.6 and Acute vomiting R11.10 [facility] [address] [place] [phone] 03/21/2024 Armin Jones Hiccough R06.6 ; [place] sea and vomiting, intractability of vomiting not specified, unspecified vomiting type R11.2 and Lymphocytic colitis K52.832 [facility] [address] [place] [phone] 05/19/2024 Armin Jones [facility] [address] [place] [phone] 09/06/2023 Armin Jones [facility] [address] [place] [phone] 09/26/2023 Armin Jones [facility] [address] [place] [address] 10/10/2023 Armin Jones Nausea and vomiting, intractability of vomiting not specified, unspecified vomiting type R11.2 ; Belching R14.2 and Hiccough R06.6 [facility] [address] [place] [address] 10/30/2023 Armin Jones [facility] [address] [place] [address] 11/09/2023 Armin Jones [facility] [address] [place] [address] 11/22/2023 Armin Jones [facility] [address] [place] [address] 11/22/2023 Armin Jones [facility] [address] [place] [address] 12/05/2023 Armin Jones Nausea with vomiting , unspecified R11.2 [facility] [address] [place] [address] 12/15/2023 Armin Jones [facility] [address] [place] [address] 12/22/2023 Armin Jones [facility] [address] [place] [address] 12/28/2023 Armin Jones [facility] [address] [place] [address] 02/20/2024 Armin Jones [facility] [address] [place] [address] 03/21/2024 Armin Jones [facility] [address] [place] [address] 05/08/2024 Armin Jones [facility] [address] [place] [address] 05/09/2024 Armin Jones Assessments Encounter Date Diagnosis (ICD Code) Assessment Notes Treatment Notes Treatment Clinical Notes Section Notes 10/03/2023 Gastro-esophageal reflux disease without esophagitis (ICD-10 - K21.9) 10/03/2023 Hiatal hernia (ICD-10 - K44.9) 09/29/2023 Nausea with vomiting, unspecified (ICD-10 - R11.2) Overall, Manuel appears very well from a clinical standpoint. Nonetheless, I did recommend an upper endoscopy for evaluation of these persistent and bothersome upper GI complaints of the hiccups, belching, and intermittent nausea with vomiting. It would be important to rule out the development of a hiatal hernia, esophagitis, gastritis, or even a component of delayed gastric emptying in relation to a gastroparesis or gastric outlet obstruction that could be contributing to these upper GI symptoms. Therefore, given the negative workup in the ER with CT scans and laboratories, and his ongoing symptoms, I would definitely recommend further assessment with the upper endoscopy. Full consent was obtained from him for the endoscopy, including risks of bleeding and perforation. The procedure will be done with monitored anesthesia care. In the meantime, I did advise him that he should definitively try to stop the Thorazine as it does not seem to be definitely helping him and he could develop side effects with things like tardive dyskinesia. Depending upon the results of the endoscopy we might want to try to put him back on a course of a PPI for a longer period of time. In regard to the underlying lymphocytic colitis I did advise him that he should try to decrease the budesonide back down to 3 mg daily and observe things. He should continue his daily Imodium as well. He does have a scheduled office visit followup with me for the underlying colitis in November. Al was comfortable with this plan. Thank you again for allowing me to participate in Manuel's care. I shall continue to keep you advised of his progress. 09/29/2023 Belching (ICD-10 - R14.2) Try to stop the chlorpromazine( Thorazine)---ca n have side effects of Tardive dyskinesia(faci al twitching,etc) Overall, Al appears very well from a clinical standpoint. Nonetheless, I did recommend an upper endoscopy for evaluation of these persistent and bothersome upper GI complaints of the hiccups, belching, and intermittent nausea with vomiting. It would be important to rule out the development of a hiatal hernia, esophagitis, gastritis, or even a component of delayed gastric emptying in relation to a gastroparesis or gastric outlet obstruction that could be contributing to these upper GI symptoms. Therefore, given the negative workup in the ER with CT scans and laboratories, and his ongoing symptoms, I would definitely recommend further assessment with the upper endoscopy. Full consent was obtained from him for the endoscopy, including risks of bleeding and perforation. The procedure will be done with monitored anesthesia care. In the meantime, I did advise him that he should definitively try to stop the Thorazine as it does not seem to be definitely helping him and he could develop side effects with things like tardive dyskinesia. Depending upon the results of the endoscopy we might want to try to put him back on a course of a PPI for a longer period of time. In regard to the underlying lymphocytic colitis I did advise him that he should try to decrease the budesonide back down to 3 mg daily and observe things. He should continue his daily Imodium as well. He does have a scheduled office visit followup with me for the underlying colitis in November. Manuel was comfortable with this plan. Thank you again for allowing me to participate in Manuel's care. I shall continue to keep you advised of his progress. 11/22/2023 Abdominal bloating (ICD-10 - R14.0) Stop Marijuana completely for 2 weeks to see if that helps Speak with Dr. Daniel about a prescription to help relax Overall, Manuel appears quite well from a clinical standpoint. Nonetheless, these ongoing intermittent symptoms are proving very problematic and bothersome to him. We did review all of the tests that he has had over the last few months which have been basically nonrevealing. I suspect the finding of the esophagitis was more in relation to the episodes of belching and vomiting as opposed to the esophagitis being the primary problem. There has been no sign of any gastric emptying disorders either from a Motility or obstructive pathology. I had a detailed discussion with him today regarding the fact that I don't have any type of definitive diagnosis or treatment for him. However, my plan at this point is to have him stop his marijuana completely for at least 2 weeks to see if that might be triggering some of his upper GI complaints as marijuana has been shown to be a culprit in cyclical vomiting syndrome. I have also asked him to speak with you about obtaining something to help relax his mood as he does describe himself as sometimes being stressed or anxious. He already has an upcoming neurology appointment later in the year to get their opinion as to whether or not it might be something going on from that standpoint. I am also going to schedule him for esophageal motility studies to definitively exclude any type of esophageal motility issue that might be triggering or at least contributing to some of these upper GI complaints. I will plan to see him again in 2 or 3 months for a followup visit but advised him to keep in touch with me as to how things are going. If by some chance the stoppage of the marijuana takes care of his symptoms then we can hold off on any further evaluations. Al was comfortable with this plan. Thank you again for allowing me to participate in Manuel's care. I shall continue to keep you advised of his progress. 11/22/2023 Belching (ICD-10 - R14.2) Overall, Manuel appears quite well from a clinical standpoint. Nonetheless, these ongoing intermittent symptoms are proving very problematic and bothersome to him. We did review all of the tests that he has had over the last few months which have been basically nonrevealing. I suspect the finding of the esophagitis was more in relation to the episodes of belching and vomiting as opposed to the esophagitis being the primary problem. There has been no sign of any gastric emptying disorders either from a Motility or obstructive pathology. I had a detailed discussion with him today regarding the fact that I don't have any type of definitive diagnosis or treatment for him. However, my plan at this point is to have him stop his marijuana completely for at least 2 weeks to see if that might be triggering some of his upper GI complaints as marijuana has been shown to be a culprit in cyclical vomiting syndrome. I have also asked him to speak with you about obtaining something to help relax his mood as he does describe himself as sometimes being stressed or anxious. He already has an upcoming neurology appointment later in the year to get their opinion as to whether or not it might be something going on from that standpoint. I am also going to schedule him for esophageal motility studies to definitively exclude any type of esophageal motility issue that might be triggering or at least contributing to some of these upper GI complaints. I will plan to see him again in 2 or 3 months for a followup visit but advised him to keep in touch with me as to how things are going. If by some chance the stoppage of the marijuana takes care of his symptoms then we can hold off on any further evaluations. Manuel was comfortable with this plan. Thank you again for allowing me to participate in Al's care. I shall continue to keep you advised of his progress. 03/21/2024 Hiccough (ICD-10 - R06.6) Follow up with the surgeons Dr. Munroe at [facility] and Dr. Pearson at [facility] regarding question of hiatal hernia surgery. You can try the Chlorpromazine( Thorazine) again to see if that helps---watch for symptoms of Tardive Dyskinesia(move ments or facial twitches) You can try the daily omeprazole again to see if that helps 03/21/2024 Nausea and vomiting, intractability of vomiting not specified, unspecified vomiting type (ICD-10 - R11.2) 10/10/2023 Belching (ICD-10 - R14.2) 10/10/2023 Nausea and vomiting, intractability of vomiting not specified, unspecified vomiting type (ICD-10 - R11.2) 12/05/2023 Nausea with vomiting, unspecified (ICD-10 - R11.2) 10/03/2023 Erosive esophagitis (ICD-10 - K22.10) 09/29/2023 Hiccough (ICD-10 - R06.6) Overall, Al appears very well from a clinical standpoint. Nonetheless, I did recommend an upper endoscopy for evaluation of these persistent and bothersome upper GI complaints of the hiccups, belching, and intermittent nausea with vomiting. It would be important to rule out the development of a hiatal hernia, esophagitis, gastritis, or even a component of delayed gastric emptying in relation to a gastroparesis or gastric outlet obstruction that could be contributing to these upper GI symptoms. Therefore, given the negative workup in the ER with CT scans and laboratories, and his ongoing symptoms, I would definitely recommend further assessment with the upper endoscopy. Full consent was obtained from him for the endoscopy, including risks of bleeding and perforation. The procedure will be done with monitored anesthesia care. In the meantime, I did advise him that he should definitively try to stop the Thorazine as it does not seem to be definitely helping him and he could develop side effects with things like tardive dyskinesia. Depending upon the results of the endoscopy we might want to try to put him back on a course of a PPI for a longer period of time. In regard to the underlying lymphocytic colitis I did advise him that he should try to decrease the budesonide back down to 3 mg daily and observe things. He should continue his daily Imodium as well. He does have a scheduled office visit followup with me for the underlying colitis in November. Manuel was comfortable with this plan. Thank you again for allowing me to participate in Manuel's care. I shall continue to keep you advised of his progress. 11/22/2023 Gopalcohunter (ICD-10 - R06.6) Overall, Manuel appears quite well from a clinical standpoint. Nonetheless, these ongoing intermittent symptoms are proving very problematic and bothersome to him. We did review all of the tests that he has had over the last few months which have been basically nonrevealing. I suspect the finding of the esophagitis was more in relation to the episodes of belching and vomiting as opposed to the esophagitis being the primary problem. There has been no sign of any gastric emptying disorders either from a Motility or obstructive pathology. I had a detailed discussion with him today regarding the fact that I don't have any type of definitive diagnosis or treatment for him. However, my plan at this point is to have him stop his marijuana completely for at least 2 weeks to see if that might be triggering some of his upper GI complaints as marijuana has been shown to be a culprit in cyclical vomiting syndrome. I have also asked him to speak with you about obtaining something to help relax his mood as he does describe himself as sometimes being stressed or anxious. He already has an upcoming neurology appointment later in the year to get their opinion as to whether or not it might be something going on from that standpoint. I am also going to schedule him for esophageal motility studies to definitively exclude any type of esophageal motility issue that might be triggering or at least contributing to some of these upper GI complaints. I will plan to see him again in 2 or 3 months for a followup visit but advised him to keep in touch with me as to how things are going. If by some chance the stoppage of the marijuana takes care of his symptoms then we can hold off on any further evaluations. Manuel was comfortable with this plan. Thank you again for allowing me to participate in Manuel's care. I shall continue to keep you advised of his progress. 03/21/2024 Lymphocytic colitis (ICD-10 - K52.832) 10/10/2023 Hiccough (ICD-10 - R06.6) 10/03/2023 Nausea with vomiting, unspecified (ICD-10 - R11.2) 09/29/2023 Lymphocytic colitis (ICD-10 - K52.832) Overall, Manuel appears very well from a clinical standpoint. Nonetheless, I did recommend an upper endoscopy for evaluation of these persistent and bothersome upper GI complaints of the hiccups, belching, and intermittent nausea with vomiting. It would be important to rule out the development of a hiatal hernia, esophagitis, gastritis, or even a component of delayed gastric emptying in relation to a gastroparesis or gastric outlet obstruction that could be contributing to these upper GI symptoms. Therefore, given the negative workup in the ER with CT scans and laboratories, and his ongoing symptoms, I would definitely recommend further assessment with the upper endoscopy. Full consent was obtained from him for the endoscopy, including risks of bleeding and perforation. The procedure will be done with monitored anesthesia care. In the meantime, I did advise him that he should definitively try to stop the Thorazine as it does not seem to be definitely helping him and he could develop side effects with things like tardive dyskinesia. Depending upon the results of the endoscopy we might want to try to put him back on a course of a PPI for a longer period of time. In regard to the underlying lymphocytic colitis I did advise him that he should try to decrease the budesonide back down to 3 mg daily and observe things. He should continue his daily Imodium as well. He does have a scheduled office visit followup with me for the underlying colitis in November. Manuel was comfortable with this plan. Thank you again for allowing me to participate in Manuel's care. I shall continue to keep you advised of his progress. 11/22/2023 Acute vomiting (ICD-10 - R11.10) Overall, Manuel appears quite well from a clinical standpoint. Nonetheless, these ongoing intermittent symptoms are proving very problematic and bothersome to him. We did review all of the tests that he has had over the last few months which have been basically nonrevealing. I suspect the finding of the esophagitis was more in relation to the episodes of belching and vomiting as opposed to the esophagitis being the primary problem. There has been no sign of any gastric emptying disorders either from a Motility or obstructive pathology. I had a detailed discussion with him today regarding the fact that I don't have any type of definitive diagnosis or treatment for him. However, my plan at this point is to have him stop his marijuana completely for at least 2 weeks to see if that might be triggering some of his upper GI complaints as marijuana has been shown to be a culprit in cyclical vomiting syndrome. I have also asked him to speak with you about obtaining something to help relax his mood as he does describe himself as sometimes being stressed or anxious. He already has an upcoming neurology appointment later in the year to get their opinion as to whether or not it might be something going on from that standpoint. I am also going to schedule him for esophageal motility studies to definitively exclude any type of esophageal motility issue that might be triggering or at least contributing to some of these upper GI complaints. I will plan to see him again in 2 or 3 months for a followup visit but advised him to keep in touch with me as to how things are going. If by some chance the stoppage of the marijuana takes care of his symptoms then we can hold off on any further evaluations. Manuel was comfortable with this plan. Thank you again for allowing me to participate in Al's care. I shall continue to keep you advised of his progress. 10/03/2023 Belching (ICD-10 - R14.2) 09/29/2023 Other Overall, Manuel appears very well from a clinical standpoint. Nonetheless, I did recommend an upper endoscopy for evaluation of these persistent and bothersome upper GI complaints of the hiccups, belching, and intermittent nausea with vomiting. It would be important to rule out the development of a hiatal hernia, esophagitis, gastritis, or even a component of delayed gastric emptying in relation to a gastroparesis or gastric outlet obstruction that could be contributing to these upper GI symptoms. Therefore, given the negative workup in the ER with CT scans and laboratories, and his ongoing symptoms, I would definitely recommend further assessment with the upper endoscopy. Full consent was obtained from him for the endoscopy, including risks of bleeding and perforation. The procedure will be done with monitored anesthesia care. In the meantime, I did advise him that he should definitively try to stop the Thorazine as it does not seem to be definitely helping him and he could develop side effects with things like tardive dyskinesia. Depending upon the results of the endoscopy we might want to try to put him back on a course of a PPI for a longer period of time. In regard to the underlying lymphocytic colitis I did advise him that he should try to decrease the budesonide back down to 3 mg daily and observe things. He should continue his daily Imodium as well. He does have a scheduled office visit followup with me for the underlying colitis in November. Al was comfortable with this plan. Thank you again for allowing me to participate in Al's care. I shall continue to keep you advised of his progress. Plan Of Treatment Pending Test Test Name Order Date Esophageal Motility study 11/22/2023 CHEM 7 PROFILE 12/05/2023 CHEM 7 PROFILE 07/31/2018 LIVER PROFILE 12/05/2023 CRP 12/05/2023 CBC w DIFF 12/05/2023 SED RATE (ESR) 12/05/2023 CELIAC PANEL #10 10/10/2023 NUC GASTRIC ANTRUM EMPTYING 10/10/2023 XR GI SERIES 10/10/2023 CT head/brain w con 12/05/2023 Future Test Test Name Order Date COLONOSCOPY 06/20/2018 UPPER GI ENDOSCOPY 09/29/2023 Next Appt Details Provider Name:Armin Jones , 06/26/2024 02:40:00 PM, [address] [place] [address], [address], [place], [address], Insurance Providers Payer Name Payer Address Payer Phone Subscriber Number Group Number Insured Name Patient Relationship to Insured Coverage Start Date Coverage End Date MEDICA[employer] OF [employer] [address] [place] [address] [id number] LOGAN BOLAND Self - patient is the insured Medical (General) History Medical History History ICD Code PVC's COPD Chronic kidney disease stage 3 Hypertension Spinal meningitis as a child Denies PA,DM,CVA Lymphocytic colitis-diagnose d in June of 2018 colonoscopy with biopsies--the colon was grossly normal and biopsies from the terminal ileum were normal as well. He had negative laboratories for celiac disease. He did improve on budesonide and a trial of mesalamine was added in January 2019--- he had to stop the mesalamine due to a lot of bloating, diarrhea, abdominal cramps. Low testosterone level--sees an endocrin ologist and Dr. Kennedy Issue of belching, hiccups, dry heaves, and vomiting since July 2023. Upper endoscopy October 03 with finding of a small hiatal hernia and some esophagitis with a small ulcer at the gastroesophageal junction, but no evidence of any Allen's esophagus nor H. pylori. Biopsies from the duodenum showed some increased intraepithelial lymphocytes but no evidence of any villous blunting, and laboratories were negative for celiac disease. He had a normal upper GI series and a normal nuclear medicine gastric emptying study, as well as a normal CT scan of the chest and abdomen. He was on some omeprazole without much improvement and was also on some Thorazine which may or may not have helped with some of the hiccups but he stopped that due to potential side effects. He also had a negative CT and MRI of the brain. He has been seen by neurology without any explanation offered in regard to the hiccups. Normal esophageal motility studies in [facility] 2023 Surgical History Surgery Date(Month/Year) Shoulders bilateral- Dr. Rosenbaum Hernia repair
--- OUTSIDE RECORDS SUMMARY | 2024-06-05 10:06 | XMS_ITS ---
Author Organization [facility] Address [address] [place] [address] Care Team Providers Care Vault Worker Name Role Phone María GONZALEZ, Eduardo Primary Care Provider UnavailArmin Keen Unavailable [phone] Encounters Encounter Location Date Provider Diagnosis [facility] [address] [place] [address] 05/09/2024 Armin Jones Plan Of Treatment Next Appt Details Provider Name:Armin Jones , 06/26/2024 02:40:00 PM, [address], [address], [place], [address], Progress Notes * LOGAN WASSERMAN JrDOB: [birth year] (64 yo M)Acc No.[id number]:05/09/2024 Patient:?LOGAN WASSERMAN Jr :1960???Age:64 Y???Sex:Male Address:[address], [place], * true * Date:? Generated for Printi ng/Faxing/eTransmitting on:?06/05/2024 10:06 AM EDT
--- OUTSIDE RECORDS SUMMARY | 2024-06-05 10:07 | XMS_ITS | Data Portability ---
Author Organization [place] [facility], [facility] Address [address] [address] Care Team Providers Care Voltage Regulator Assembler Name Role Phone MERVAT ANDINO Referring Provider [phone] Assessment Encounter Date Assessment Date Assessment LastModified [...] larynx identified. He has special consultation in [place] in September as well as gastro surgeon at [facility] in the next 2 months. dplosky Not [...] Address Organization Details Recorded Time Chronic hiccup 510511353 Active 025 MARCE SHARP MD [address] [place] [address] [place], [address] , [place] - [facility] 08:51:33 Problem Notes None recorded. Procedures Surgical History Date Name Laterality Status Provider Name and Address Organization Details Recorded Time 03/15/2024 FOL_DP completed MARCE SHARP MD [address] [place] [address],[address] [place], [address], [facility] 03/15/2024 08:51:26 Imaging Results None recorded. Procedure [...] Updated DateTime 03/15/2024 180.34 cm 28 kg/m2 14827.07 g Tisha Ignacio [place] - [facility] 03/15/2024 10:51:48 Social History None recorded. Functional Status None recorded. Mental Status None recorded. Family History Nothing Reported. Medical History Condition Response Hypertension Y Kidney Disease Y Past Encounters Encounter ID Performer Location Encounter Start Date Encounter Closed Date Diagnosis/Indication Diagnosis SNOMED-CT Code Diagnosis ICD10 Code Diagnosis Note [id number] MARCE SHARP MD [facility] [address] [address] 03/15/2024 10:33:39 03/15/2024 11:16:26 Chronic hiccup 980293634 R06.6 Health Concerns Section Related Observation LastModified by Organization Detai ls LastModified Time None Recorded Concern Status LastModified by Organization Details LastModified Time None Recorded Advance Directives Directive None Recorded Payers Encounter Date Sequence Insurance Name Policy Number Policy Vo Covered Member ID Vo Member ID Guarantor Name 03/15/2024 1 [place] [facility] Logan Boland [id number] Logan Guerrero Jr Notes Date Note Type Note Provider Name and Address Organization Details Recorded Time 03/15/2024 text/html Intractable hiccupsOnset 07/17/2023ay and night even while sleepingvomit 6-8 times dailyGI workup was tfolox21/26/[address] Box -noted small left cerumenChest CT benignbrain imaging per neurology also benignfailed trial of chlorpromazine, prochloperazine, metoclopramide, ondansetron, lorazepam, baclofen, omeprazole PCP tried wax soften drops and sx persist 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
--- OUTSIDE RECORDS SUMMARY | 2024-06-05 10:07 | XMS_ITS ---
Author Organization [facility] Address [address] [place] [address] Care Team Providers Care Analytical Strategist Name Role Phone Eduardo Daniel MD Primary Care Provider Unavailab Armin Garcia Unavailable [phone] REASON FOR VISIT missing proc code for office visit Encounters Encounter Location Date Provider Diagnosis [facility] [address] [place] [address] 05/08/2024 Armin Jones Plan Of Treatment Next Appt Details Provider Name:Armin Jones , 06/26/2024 02:40:00 PM, [address], [address], [place], [address], Progress Notes * LOGAN WASSERMAN JrDOB: [birth year] (64 yo M)Acc No.[id number]:05/08/2024 Patient:?LOGAN WASSERMAN Jr :1960???Age:64 Y???Sex:Male Address:[address], [place], * true * Date:? Generated for Printi ng/Famicg/eTransmitting on:?06/05/2024 10:06 AM EDT
--- OUTSIDE RECORDS SUMMARY | 2024-06-05 10:07 | XMS_ITS ---
Author Organization [facility] Address [address] [place] [address] Care Team Providers Care Lang Path Therapist Name Role Phone María GONZALEZ, Eduardo Primary Care Provider Unavailab Armin Garcia Unavailable [phone] REASON FOR VISIT Carmichael pH study Encounters Encounter Location Date Provider Diagnosis [facility] [address] [place] [address] 05/19/2024 Armin Jones Plan Of Treatment Next Appt Details Provider Name:Armin Jones , 06/26/2024 02:40:00 PM, [address], [address], [place], [address], Progress Notes * LOGAN WASSERMAN JrDOB: [birth year] (64 yo M)Acc No.[id number]:05/19/2024 Patient:?LOGAN WASSERMAN Jr :1960???Age:64 Y???Sex:Male Address:[address], [place], * * Date:?
== END 2024-06-05 10:15 | disposition home or self-care (01) ==
LOC: HO.HUSH 09:22
PROVIDERS: PCP Internal Medicine; Visit Provider Urology
DX: E29.1 Testicular hypofunction (principal); N52.01 Erectile dysfunction due to arterial insufficiency
CPT/HCPCS: 99213

== ENCOUNTER → 2024-06-05 09:22 | Outpatient (BNVA) | payer MEDICAID, SELFPAY | PROVIDERS: PCP Internal Medicine; Visit Provider Urology ==

== ENCOUNTER 2024-06-07 10:37 | Outpatient (REF) | payer MEDICAID, SELFPAY ==
--- OUTSIDE RECORDS SUMMARY | 2024-06-07 12:23 | XMS_ITS | Patient Health Record ---
Author Organization [facility] Address [address] [place] [address] Care Team Providers Care Fur Scraper Name Role Phone Eduardo Daniel MD Primary Care Provider Unavailab Armin Garcia Unavailable [phone] Allergies No Known Allergies Results Component Value Reference Range Notes Pathology Reviewed date:10/11/2023 12:27:17 PM Interpretation: Performing Lab:[facility], [address] [place] [address] Notes/Report: ------ Name: Logan Boland Age/Sex: 63/M : 1960 Unit#: [id number] Attend Dr: Armin Jones MD Re10/03/23 Status : [facility] Location: [facility] Disch: ------ SPEC : [id number] RECD : 10/04/23 STATUS: ARAVIND ZUÑIGA NUM: [id number] JEMIMA: 10/03/23-1455 [facility] DR: Armin Jones MD ENTERED: 10/04/23- [...] Logan Boland Age/Sex: 63/M : 1960 Unit#: [id number] Attend Dr: Armin Jones MD Re10/03/23 Status : [facility] Location: [place] Disch: ------ SPEC : [id number] RECD : 10/04/23 STATUS: ARAVIND ZUÑIGA NUM: [id number] JEMIMA: 10/03/23-1455 [facility] DR: Armin Jones MD ENTERED: 10/04/23- [...] To: Eduardo Daniel MD [facility] [address] [place] [address] Armin Jones MD [facility] GI [address] [place] [address] ------ Signed (signature on file) Macie Storey MD 10/05/23 1205 ------ END OF REPORT Immunoglobulin A Reviewed date:10/24/2023 09:17:46 PM Interpretation: Performing Lab:[facility], [address] [place] [address] Notes/Report: Immunoglobulin A 365 70-320 mg/dL THIS TEST WAS PERFORMED AT: [facility] [address] [place] [phone] JULIO POLLOCK MD Transglutaminase Ab IgG Reviewed date:10/24/2023 09:18:08 PM Interpretation: Performing Lab:[facility], [address] [place] [address] Notes/Report: Transglutaminase Ab IgG <1.0 Value Interpretation ----- <15.0 Antibody not detected > or = 15.0 Antibody detected THIS TEST WAS PERFORMED AT: [facility] [address] [place] [address] JULIO POLLOCK MD Transglutaminase IgA Reviewed date:10/24/2023 09:18:15 PM Interpretation: Performing Lab:[facility], [address] [place] [address] Notes/Report: Transglutaminase IgA <1.0 Value Interpretation ----- <15.0 Antibody not detected > or = 15.0 Antibody detected THIS TEST WAS PERFORMED AT: [facility] [address] [place] [address] JULIO POLLOCK MD Gliadin Ab Panel Reviewed date:10/24/2023 09:18:28 PM Interpretation: Performing Lab:[facility], [address] [place] [address] Notes/Report: Gliadin Deamidated IgA Ab 1.0 Value Interpretation ----- <15.0 Antibody not detected > or = 15.0 Antibody detected Gliadin Deamidated IgG Ab <1.0 Value Interpretation ----- <15.0 Antibody not detected > or = 15.0 Antibody detected THIS TEST WAS PERFORMED AT: [facility] [address] [place] [phone] JULIO POLLOCK MD Endomysial IgA rflx Titer Reviewed date:10/24/2023 09:18:45 PM Interpretation: Performing Lab:[facility], [address] [place] [address] Notes/Report: Endomysial IgA Antibody Negative Negative THIS TEST WAS PERFORMED AT: [facility] [address] OPAL AVILA MD,PHD Endomysial Titer TNP FL upper GI w air Reviewed date:03/02/2024 12:16:15 AM Interpretation: Performing Lab: Notes/Report: [address] [address] Fluoroscopy Report Signed Patient: Logan Boland MR#: [id number] 5 : 1960 Acct:[id number] Age/Sex: 63 / M ADM Date: 10/12/23 Loc: ANA Attending Dr: Armin Jones MD Ordering Physician: Armin Jones MD Date of Service: 10/12/23 Procedure(s): FL upper GI w air Accession Number(s): [id number] cc: Eduardo Daniel MD; Armin Jones MD [...] 01/18/24 1205 DD/ 0822 TD/TT: 10/12/23 0852 Steel Layout Worker: [address] [address] Fluoroscopy Report Signed Patient: Jose Manuel Boland rt MR#: [id number] 5 : 1960 Acct:[id number] Age/Sex: 63 / M ADM Date: 10/12/23 Loc: HO.XRAY Attending Dr: Armin Jones MD Ordering Physician: Armin Jones MD Date of Service: 10/12/23 Procedure(s): FL upp er GI w air Accession Number(s): [id number] cc: Eduardo Daniel MD; Armin Jones MD [...] 01/18/24 1205 DD/ 0822 TD/TT: 10/12/23 0852 Steel Layout Worker: NM gastric emptying study Reviewed date:10/30/2023 05:56:02 PM Interpretation: Performing Lab: Notes/Report: [address] [address] Nuclear Medicine Report Signed Patient: Logan Boland MR#: [id number] 5 : 1960 Acct:[id number] Age/Sex: 63 / M ADM Date: 10/26/23 Loc: [facility] Attending Dr: Armin Jones MD Ordering Physician: Armin Jones MD Date of Service: 10/26/23 Procedure(s): NM gastric emptying study Accession Number(s): [id number] cc: Eduardo Daniel MD; Armin Jones MD [...] 10/26/23 1417 DD/ 0756 TD/TT: 10/26/23 1115 Steel Layout Worker: NANDO [address] [address] Nuclear Medicine Report Signed Patient: Jose Manuel Boland MR#: [id number] 5 : 1960 Acct:[id number] Age/Sex: 63 / M ADM Date: 10/26/23 Loc: [facility] Attending Dr: Armin Jones MD Ordering Physician: Armin Jones MD Date of Service: 10/26/23 Procedure(s): NM gas tric emptying study Accession Number(s): [id number] cc: Eduardo Daniel MD; Armin Jones MD [...] 10/26/23 1417 DD/ 0756 TD/TT: 10/26/23 1115 Steel Layout Worker: NANDO CT head/brain w con Reviewed date:12/22/2023 07:23:05 AM Interpretation: Performing Lab: Notes/Report: [address] [address] [address] Scan Report Signed Patient: Logan Boland MR#: [id number] 5 : 1960 Acct:[id number] Age/Sex: 63 / M ADM Date: 12/21/23 Loc: HO.CT Attending Dr: Armin Jones MD Ordering Physician: Armin Jones MD Date of Service: 12/21/23 Procedure(s): CT head/brain w IV con Accession Number(s): [id number] cc: Eduardo Daniel MD; Armin Jones MD [...] contrast enhancement in the region of the [place] of [place]. Sulci and ventricles normal. No [...] 12/21/23 1718 DD/ 1334 TD/TT: 12/21/23 1348 Steel Layout Worker: [address] [address] [address] Scan Report Signed Patient: Jose Manuel Boland MR#: [id number] 5 : 1960 Acct:[id number] Age/Sex: 63 / M ADM Date: 12/21/23 Loc: HO.CT Attending Dr: Armin Jones MD Ordering Physician: Armin Jones MD Date of Service: 12/21/23 Procedure(s): CT head/brain w IV con Accession Number(s): [id number] cc: Eduardo Daniel MD; Armin Jones MD [...] rast enhancement in the region of the [place] river of [place]. Sulci and ventricles normal. No [...] by: Matt Wilson MD 12/21/2023 05:18 PM [facility] Dictated By: Matt Wilson MD Signed By: <Electron ically signed by Matt Wilson MD in OV> 12/21/23 1718 DD/ 1334 TD/TT: 12/21/23 1348 Steel Layout Worker: Creatinine GFR POC Reviewed date:12/22/2023 01:40:21 PM Interpretation: Performing Lab:[facility], [address] [place] [address] Notes/Report: [id number] 1.02 >60 1329 HO.CRUZED Creatinine POC 1.0 0.5-1.4 mg/dL GFR POC > 60 Chronic Kidney Disease: Estimated GFR < 60 mL/min/1.73m2 Severe Kidney Disease: Estimated GFR < 15 mL/min/1.73m2 Reason For Referral Referring Provider First Name Eduardo Referring Provider Last Name María Referring Provider Speciality Internal M edicine Referred Organization [facility] Referred Provider Armin Jones Referred Address [address] [place] [address], Referred Provider Specialty Gastroentero logy General Notes Saba Schumacher 2024 10:47:22 AM >[facility] from Dr. Daniel's office for visit with Dr. Jones on 06-26-24 Referral Priority Routine Medications Medication SIG (Take, Route, Frequency, Duration) Notes Start Date End Date Status Testosterone Cypionate as directed DIRECTED Active Multi Vitamin/Minerals - as directed Ora lly once a day Active Omeprazole 40 MG TAKE 1 CAPSULE BY [facility] EVERY MORNING for 30 Active Fish Oil [...] Problem Gastro-esophage al reflux disease without esophagitis (246093880) Gastro-esophageal reflux disease without esophagitis (K21.9) Active confirmed Problem 994276846 Abdominal bloati ng (R14.0) Active confirmed Problem Hiccough (97664625) Hiccough (R06.6) Active confirmed Problem Nausea and vomiting (48736176) Nausea with vomiting, unspecified (R11.2) Active confirmed Problem 48106771 Rectal bleed (K62.5) Active confirmed Problem Erosive esophagitis (70005074) Erosive esophagitis (K22.10) Active confirmed Problem Belching (54468322) Belching (R14.2) Active confirmed Problem 73861370 Diarrhea, unspecified type (R19.7) Active confirmed Problem 22179689 Lymphocytic colitis (K52.832) Active confirmed Problem 335028547 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 Problem Nausea and vomiting (77512634) Nausea and vomiting, intractability of vomiting not specified, unspecified vomiting type (R11.2) Active confirmed Problem Acute vomiting (03055141) Acute vomiting (R11.10) Active confirmed Vital Signs Temperature 97.7 degrees Fahrenheit 03/21/2024 Blood pressure diastolic 00 mm Hg 03/21/2024 Height 71 in 03/21/2024 Blood pressure systolic 000 mm Hg 03/21/2024 Weight 206 lbs 03/21/2024 BMI 28.73 kg/m2 03/21/2024 Encounters Encounter Location Date Provider Diagnosis [facility] Outpatient [address] [place] [id number] 10/03/2023 Armin Jones Gastro-esophageal reflux disease without esophagitis K21.9 ; Hiatal hernia K44.9 ; Erosive esophagitis K22.10 ; Nausea with vomiting, unspecified R11.2 and Belching R14.2 [facility] [address] [place] [address] 09/29/2023 Armin Jones Belching R14.2 ; [place] with vomiting, unspecified R11.2 ; Hiccough R06.6 and Lymphocytic colitis K52.832 [facility] [address] [place] [address] 11/22/2023 Armin Jones Abdominal bloating R14.0 ; Belching R14.2 ; Hiccough R06.6 and Acute vomiting R11.10 [facility] [address] [place] [address] 03/21/2024 Armin Jones Hiccough R06.6 ; [place] and vomiting, intractability of vomiting not specified, unspecified vomiting type R11.2 and Lymphocytic colitis K52.832 [facility] [address] [place] [address] 05/19/2024 Armin Jones [facility] [address] [place] [address] 09/06/2023 Armin Jones [facility] [address] [place] [address] 09/26/2023 Armin Jones [facility] [address] [place] [address] 10/10/2023 Armin Jnoes Nausea and vomiting, intractability of vomiting not specified, unspecified vomiting type R11.2 ; Belching R14.2 and Hiccough R06.6 [facility] [address] [place] [address] 10/30/2023 Armin Jones [facility] [address] [place] [address] 11/09/2023 Armin Jones [facility] [address] [place] [address] 11/22/2023 Armin Jones [facility] [address] [place] [address] 11/22/2023 Armin Jones [facility] [address] [place] [address] 12/05/2023 Armin Jones Nausea with vomiting , unspecified R11.2 [facility] [address] [place] [address] 12/15/2023 Armin Jones [facility] [address] [place] [address] 12/22/2023 Armin Jones [facility] [address] [place] [address] 12/28/2023 Armin Jones [facility] [address] [place] [address] 02/20/2024 Armin Jones [facility] [address] [place] [address] 03/21/2024 Armin Jones [facility] [address] [place] [address] 05/08/2024 Armin Jones [facility] [address] [place] [address] 05/09/2024 Armin Jones Assessments Encounter Date Diagnosis [...] up with the surgeons Dr. Munroe at [facility] and Dr. Pearson at [facility] regarding question of hiatal hernia surgery. [...] Provider Name:Armin Jones , 06/26/2024 02:40:00 PM, [address] [place] [address], [address], [place], [address], Insurance Providers Payer Name Payer Address Payer Phone Subscriber Number Group Number Insured Name Patient Relationship to Insured Coverage Start Date Coverage End Date MEDICAID OF [facility] [address] [place] [address] [id number] LOGAN BOLAND Self - patient is the insured Medical (General) History Medical History History ICD Code PVC's COPD Chronic kidney disease stage 3 Hypertension Spinal meningitis as a child Denies [place],DM,CVA Lymphocytic colitis-diagnose d in June of 2018 [...] the hiccups. Normal esophageal motility studies in [facility] of 2023 Surgical History Surgery Date(Month/Year) Shoulders bilateral- Dr. Rosenbaum Hernia repair
--- OUTSIDE RECORDS SUMMARY | 2024-06-07 12:23 | XMS_ITS ---
Author Organization [facility] Address [address] [place] [address] Care Team Providers Care Bone Tender Name Role Phone Eduardo Daniel MD Primary Care Provider Unavailab Armin Garcia Unavailable [phone] REASON FOR VISIT missing proc code for office visit Encounters Encounter Location Date Provider Diagnosis [facility] [address] [place] [address] 05/08/2024 Armin Jones Plan Of Treatment Next Appt Details Provider Name:Armin Jones , 06/26/2024 02:40:00 PM, [address], [address], [place], [address], Progress Notes * LOGAN WASSERMAN JrDOB: [birth year] (64 yo M)Acc No.[id number]:05/08/2024 Patient:?LOGAN WASSERMAN Jr :1960???Age:64 Y???Sex:Male Address:[address], [place], * true * Date:? Generated for Printi ng/Faxing/eTransmitting on:?06/07/2024 12:23 PM EDT
--- OUTSIDE RECORDS SUMMARY | 2024-06-07 12:23 | XMS_ITS ---
Author Organization [facility] Address [address] [place] [address] Care Team Providers Care Photolithographic Stripper Name Role Phone María GONZALEZ, Eduardo Primary Care Provider Unavailab Armin Garcia Unavailable [phone] REASON FOR VISIT Carmichael pH study Encounters Encounter Location Date Provider Diagnosis [facility] [address] [place] [address] 05/19/2024 Armin Jones Plan Of Treatment Next Appt Details Provider Name:Armin Jones , 06/26/2024 02:40:00 PM, [address], [address], [place], [address], Progress Notes * LOGAN WASSERMAN JrDOB: [birth year] (64 yo M)Acc No.[id number]:05/19/2024 Patient:?LOGAN WASSERMAN Jr :1960???Age:64 Y???Sex:Male Address:[address], [place], * * Date:?
--- OUTSIDE RECORDS SUMMARY | 2024-06-07 12:23 | XMS_ITS ---
Author Organization [facility] Address [address] [place] [address] Care Team Providers Care Relocation Coordinator Name Role Phone María GONZALEZ, Eduardo Primary Care Provider UnavailArmin Keen [phone] Encounters Encounter Location Date Provider Diagnosis [facility] [address] [place] [address] 05/09/2024 Armin Jones Plan Of Treatment Next Appt Details Provider Name:Armin Jones , 06/26/2024 02:40:00 PM, [address], [address], [place], [address], Progress Notes * LOGAN WASSERMAN JrDOB: [birth year] (64 yo M)Acc No.[id number]:05/09/2024 Patient:?LOGAN WASSERMAN Jr :1960???Age:64 Y???Sex:Male Address:[address], [place], * true * Date:? Generated for Printi ng/Faxing/eTransmitting on:?06/07/2024 12:22 PM EDT
[2024-06-10 07:29] LABS: TS Negative Control Passed; TS Panel A 0; TS Panel B 0; TS Positive Control Passed; TSpotTB Negative (Negative)
== END 2024-06-07 10:38 | disposition home or self-care (01) ==
LOC: HO.HMGCLDS 10:37
PROVIDERS: PCP Internal Medicine; Visit Provider Internal Medicine
DX: Z11.1 Encounter for screening for respiratory tuberculosis (principal)
CPT/HCPCS: 36415; 86481

== ENCOUNTER 2024-06-25 08:48 | Emergency (ER) | payer MEDICAID, SELFPAY ==
[2024-06-25 08:59] VITALS: BP 125/56; PULSE 97; RESP 18; TEMP 37.2; O2SAT 98; BMI 28.9
--- OUTSIDE RECORDS SUMMARY | 2024-06-25 10:26 | XMS_ITS ---
Author Organization [facility] Address [address] [place] [address] Care Team Providers Care Caustics Loader Name Role Phone María GONZALEZ, Eduardo Primary Care Provider UnavailArmin Keen [phone] Encounters Encounter Location Date Provider Diagnosis [facility] [address] [place] [address] 05/09/2024 Armin Jones Plan Of Treatment Next Appt Details Provider Name:Armin Jones , 06/26/2024 02:40:00 PM, [address], [address], [place], [address], Progress Notes * LOGAN WASSERMAN JrDOB: [birth year] (64 yo M)Acc No.[id number]:05/09/2024 Patient:?LOGAN WASSERMAN Jr :1960???Age:64 Y???Sex:Male Address:[address], [place], * true * Date:? Generated for Printi ng/Faxing/eTransmitting on:?06/25/2024 10:26 AM EDT
--- OUTSIDE RECORDS SUMMARY | 2024-06-25 10:27 | XMS_ITS | Data Portability ---
Author Organization [place] [facility], Allergy Address [address] [address] Care Team Providers Care Edging Machine Catcher Name Role Phone MERVAT ANDINO Referring Provider [phone] Assessment Encounter Date Assessment Date Assessment LastModified [...] larynx identified. He has special consultation in [place] in September as well as gastro surgeon at [facility] in the next 2 months. dplosky Not [...] Address Organization Details Recorded Time Chronic hiccup 200975920 Active 025 MARCE SHARP MD [address] [place] [address] [place], [address] , [place] - [facility] 08:51:33 Problem Notes None recorded. Procedures Surgical History Date Name Laterality Status Provider Name and Address Organization Details Recorded Time 03/15/2024 FOL_DP completed MARCE SHARP MD [address] [place] [address],[address] [place], [address], [facility] 03/15/2024 08:51:26 Imaging Results None recorded. [...] Updated DateTime 03/15/2024 180.34 cm 28 kg/m2 53900.07 g Tisha Ignacio [place] - [facility] 03/15/2024 10:51:48 Social History None recorded. Functional Status None recorded. Mental Status None recorded. Family History Nothing Reported. Medical History Condition Response Hypertension Y Kidney Disease Y Past Encounters Encounter ID Performer Location Encounter Start Date Encounter Closed Date Diagnosis/Indication Diagnosis SNOMED-CT Code Diagnosis ICD10 Code Diagnosis Note [id number] MARCE SHARP MD [facility] [address] [address] 03/15/2024 10:33:39 03/15/2024 11:16:26 Chronic hiccup 177985570 R06.6 Health Concerns Section Related Observation LastModified by Organization Detai ls LastModified Time None Recorded Concern Status LastModified by Organization Details LastModified Time None Recorded Advance Directives Directive None Recorded Payers Insurance Date Sequence Insurance Name Policy Number Policy Vo Covered Member ID Vo Member ID Guarantor Name 03/15/2024 1 MEDICAID-MD: [facility] Logan Boland [id number] Logan Guerrero Jr Notes Date Note Type Note Provider Name and Address Organization Details Recorded Time 03/15/2024 text/html Intractable hiccupsOnset 07/17/2023ay and night even while sleepingvomit 6-8 times dailyGI workup was zsyrvr68/26/[address] Box -noted small left cerumenChest CT benignbrain imaging per neurology also benignfailed trial of chlorpromazine, prochloperazine, metoclopramide, ondansetron, lorazepam, baclofen, omeprazole PCP tried wax soften drops and sx persist 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
--- OUTSIDE RECORDS SUMMARY | 2024-06-25 10:27 | XMS_ITS | Patient Health Record ---
Author Organization [facility] Address [address] [place] [address] Care Team Providers Care Antique Repairer Name Role Phone Eduardo Daniel MD Primary Care Provider Unavailab Armin Garcia Unavailable [phone] Allergies No Known Allergies Results Component Value Reference Range Notes Pathology Reviewed date:10/11/2023 12:27:17 PM Interpretation: Performing Lab:[facility], [address] [place] [address] Notes/Report: ------ Name: Logan Boland Age/Sex: 63/M : 1960 Unit#: [id number] Attend Dr: Armin Jones MD Re10/03/23 Status : [facility] Location: [facility] Disch: ------ SPEC : [id number] RECD : 10/04/23 STATUS: ARAVIND ZUÑIGA NUM: [id number] JEMIMA: 10/03/23-1455 [facility] DR: Armin Jones MD ENTERED: 10/04/23- [...] Logan Boland Age/Sex: 63/M : 1960 Unit#: [id number] Attend Dr: Armin Jones MD Re10/03/23 Status : [facility] Location: [facility] Disch: ------ SPEC : [id number] RECD : 10/04/23 STATUS: ARAVIND ZUÑIGA NUM: [id number] JEMIMA: 10/03/23-1455 [facility] DR: Armin Jones MD ENTERED: 10/04/23- [...] To: Eduardo Daniel MD [facility] [address] [place] [address] Armin Jones MD [facility] GI [address] [place] [address] ------ Signed (signature on file) Macie Storey MD 10/05/23 1205 ------ END OF REPORT Immunoglobulin A Reviewed date:10/24/2023 09:17:46 PM Interpretation: Performing Lab:[facility], [address] [place] [address] Notes/Report: Immunoglobulin A 365 70-320 mg/dL THIS TEST WAS PERFORMED AT: [facility] [address] [place] [address] JULIO POLLOCK MD Transglutaminase Ab IgG Reviewed date:10/24/2023 09:18:08 PM Interpretation: Performing Lab:[facility], [address] [place] [address] Notes/Report: Transglutaminase Ab IgG <1.0 Value Interpretation ----- <15.0 Antibody not detected > or = 15.0 Antibody detected THIS TEST WAS PERFORMED AT: [facility] [address] [place] [address] JULIO POLLOCK MD Transglutaminase IgA Reviewed date:10/24/2023 09:18:15 PM Interpretation: Performing Lab:[facility], [address] [place] [address] Notes/Report: Transglutaminase IgA <1.0 Value Interpretation ----- <15.0 Antibody not detected > or = 15.0 Antibody detected THIS TEST WAS PERFORMED AT: [facility] [address] [place] [address] JULIO POLLOCK MD Gliadin Ab Panel Reviewed date:10/24/2023 09:18:28 PM Interpretation: Performing Lab:[facility], [address] [place] [address] Notes/Report: Gliadin Deamidated IgA Ab 1.0 Value Interpretation ----- <15.0 Antibody not detected > or = 15.0 Antibody detected Gliadin Deamidated IgG Ab <1.0 Value Interpretation ----- <15.0 Antibody not detected > or = 15.0 Antibody detected THIS TEST WAS PERFORMED AT: [facility] [address] [place] [address] JULIO POLLOCK MD Endomysial IgA rflx Titer Reviewed date:10/24/2023 09:18:45 PM Interpretation: Performing Lab:[facility], [address] [place] [address] Notes/Report: Endomysial IgA Antibody Negative Negative THIS TEST WAS PERFORMED AT: [facility]/[address] [address] OPAL AVILA MD,PHD Endomysial Titer TNP FL upper GI w air Reviewed date:03/02/2024 12:16:15 AM Interpretation: Performing Lab: Notes/Report: [address] [address] Fluoroscopy Report Signed Patient: Logan Boland MR#: [id number] 5 : 1960 Acct:[id number] Age/Sex: 63 / M ADM Date: 10/12/23 Loc: ANA Attending Dr: Armin Jones MD Ordering Physician: Armin Jones MD Date of Service: 10/12/23 Procedure(s): FL upper GI w air Accession Number(s): [id number] cc: Eduardo Daniel MD; Armin Jones MD [...] 01/18/24 1205 DD/ 0822 TD/TT: 10/12/23 0852 Cipher Expert: [address] [address] Fluoroscopy Report Signed Patient: Jose Manuel Boland rt MR#: [id number] 5 : 1960 Acct:[id number] Age/Sex: 63 / M ADM Date: 10/12/23 Loc: HO.XRAY Attending Dr: Armin Jones MD Ordering Physician: Armin Jones MD Date of Service: 10/12/23 Procedure(s): FL upp er GI w air Accession Number(s): [id number] cc: Eduardo Daniel MD; Armin Jones MD [...] PA-C, and supervised by Dr. Tom Electronically htania d by: Merlin Tom MD 10/13/2023 03:25 PM EDT RP Dictated By: Nathanael Mcdonald Signed By: <Electron ically signed by Lc Mcdonald in [place]> 10/13/23 1525 <Electronically sign ed by Merlin Tom MD in [place]> 01/18/24 1205 DD/ 0822 TD/TT: 10/12/23 0852 Cipher Expert: NM gastric emptying study Reviewed date:10/30/2023 05:56:02 PM Interpretation: Performing Lab: Notes/Report: [address] [address] Nuclear Medicine Report Signed Patient: Logan Boland MR#: [id number] 5 : 1960 Acct:[id number] Age/Sex: 63 / M ADM Date: 10/26/23 Loc: [facility] Attending Dr: Armin Jones MD Ordering Physician: Armin Jones MD Date of Service: 10/26/23 Procedure(s): NM gastric emptying study Accession Number(s): [id number] cc: Eduardo Daniel MD; Armin Jones MD [...] 10/26/23 1417 DD/ 0756 TD/TT: 10/26/23 1115 Cipher Expert: NANDO [address] [address] Nuclear Medicine Report Signed Patient: Jose Manuel Boland MR#: [id number] 5 : 1960 Acct:[id number] Age/Sex: 63 / M ADM Date: 10/26/23 Loc: [facility] Attending Dr: Armin Jones MD Ordering Physician: Armin Jones MD Date of Service: 10/26/23 Procedure(s): NM gas tric emptying study Accession Number(s): [id number] cc: Eduardo Daniel MD; Armin Jones MD [...] 10/26/23 1417 DD/ 0756 TD/TT: 10/26/23 1115 Cipher Expert: NANDO CT head/brain w con Reviewed date:12/22/2023 07:23:05 AM Interpretation: Performing Lab: Notes/Report: [address] [address] [address] Scan Report Signed Patient: Logan Boland MR#: [id number] 5 : 1960 Acct:[id number] Age/Sex: 63 / M ADM Date: 12/21/23 Loc: HO.CT Attending Dr: Armin Jones MD Ordering Physician: Armin Jones MD Date of Service: 12/21/23 Procedure(s): CT head/brain w IV con Accession Number(s): [id number] cc: Eduardo Daniel MD; Armin Jones MD [...] contrast enhancement in the region of the [place]. Sulci and ventricles normal. No [...] 12/21/23 1718 DD/ 1334 TD/TT: 12/21/23 1348 Cipher Expert: [address] [address] [address] Scan Report Signed Patient: Jose Manuel Boland MR#: [id number] 5 : 1960 Acct:[id number] Age/Sex: 63 / M ADM Date: 12/21/23 Loc: HO.CT Attending Dr: Armin Jones MD Ordering Physician: Armin Jones MD Date of Service: 12/21/23 Procedure(s): CT head/brain w IV con Accession Number(s): [id number] cc: Eduardo Daniel MD; Armin Jones MD [...] rast enhancement in the region of the [place]. Sulci and ventricles normal. No [...] by: Matt Wilson MD 12/21/2023 05:18 PM [facility] Dictated By: Matt Wilson MD Signed By: <Electron ically signed by Matt Wilson MD in [place]> 12/21/23 1718 DD/ 1334 TD/TT: 12/21/23 1348 Cipher Expert: Creatinine GFR POC Reviewed date:12/22/2023 01:40:21 PM Interpretation: Performing Lab:[facility], [address] [place] [address] Notes/Report: [id number] 1.02 >60 1329 HO.CRUZED Creatinine POC 1.0 0.5-1.4 mg/dL GFR POC > 60 Chronic Kidney Disease: Estimated GFR < 60 mL/min/1.73m2 Severe Kidney Disease: Estimated GFR < 15 mL/min/1.73m2 Reason For Referral Referring Provider First Name Eduardo Referring Provider Last Name María Referring Provider Speciality Internal M edicine Referred Organization [facility] Referred Provider Armin Jones Referred Address [address] [place] [address], Referred Provider Specialty Gastroentero logy General Notes Saba Schumacher 2024 10:47:22 AM >[facility]. Daniel's office for visit with Dr. Jones on 06-26-24 Referral Priority Routine Medications Medication SIG (Take, Route, Frequency, Duration) Notes Start Date End Date Status Testosterone Cypionate as directed DIRECTED Active Multi Vitamin/Minerals - as directed Ora lly once a day Active Omeprazole 40 MG TAKE 1 CAPSULE BY [facility] EVERY MORNING for 30 Active Fish [...] Problem Gastro-esophage al reflux disease without esophagitis (459481700) Gastro-esophageal reflux disease without esophagitis (K21.9) Active confirmed Problem 367237461 Abdominal bloati ng (R14.0) Active confirmed Problem Hiccough (01943267) Hiccough (R06.6) Active confirmed Problem Nausea and vomiting (17192251) Nausea with vomiting, unspecified (R11.2) Active confirmed Problem 97702037 Rectal bleed (K62.5) Active confirmed Problem Erosive esophagitis (03303988) Erosive esophagitis (K22.10) Active confirmed Problem Belching (12559426) Belching (R14.2) Active confirmed Problem 61625861 Diarrhea, unspecified type (R19.7) Active confirmed Problem 56195403 Lymphocytic colitis (K52.832) Active confirmed Problem 852635999 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 Problem Nausea and vomiting (19632582) Nausea and vomiting, intractability of vomiting not specified, unspecified vomiting type (R11.2) Active confirmed Problem Acute vomiting (80487493) Acute vomiting (R11.10) Active confirmed Vital Signs Temperature 97.7 degrees Fahrenheit 03/21/2024 Blood pressure diastolic 00 mm Hg 03/21/2024 Height 71 in 03/21/2024 Blood pressure systolic 000 mm Hg 03/21/2024 Weight 206 lbs 03/21/2024 BMI 28.73 kg/m2 03/21/2024 Encounters Encounter Location Date Provider Diagnosis [facility] Outpatient [address] [place] [id number] 10/03/2023 Armin Jones Gastro-esophageal reflux disease without esophagitis K21.9 ; Hiatal hernia K44.9 ; Erosive esophagitis K22.10 ; Nausea with vomiting, unspecified R11.2 and Belching R14.2 [facility] [address] [place] [address] 09/29/2023 Armin Jones Belching R14.2 ; [place] with vomiting, unspecified R11.2 ; Hiccough R06.6 and Lymphocytic colitis K52.832 [facility] [address] [place] [address] 11/22/2023 Armin Jones Abdominal bloating R14.0 ; Belching R14.2 ; Hiccough R06.6 and Acute vomiting R11.10 [facility] [address] [place] [address] 03/21/2024 Armin Jones Hiccough R06.6 ; [place] and vomiting, intractability of vomiting not specified, unspecified vomiting type R11.2 and Lymphocytic colitis K52.832 [facility] [address] [place] [address] 09/06/2023 Armin Jones [facility] [address] [place] [address] 09/26/2023 Armin Jones [facility] [address] [place] [address] 10/10/2023 Armin Jones Nausea and vomiting, intractability of vomiting not specified, unspecified vomiting type R11.2 ; Belching R14.2 and Hiccough R06.6 [facility] [address] [place] [address] 10/30/2023 Armin Jones [facility] [address] [place] [address] 11/09/2023 Armin Jones [facility] [address] [place] [address] 11/22/2023 Armin Jones [facility] [address] [place] [address] 11/22/2023 Armin Jones [facility] [address] [place] [address] 12/05/2023 Armin Jones Nausea with vomiting , unspecified R11.2 [facility] [address] [place] [address] 12/15/2023 Armin Jones [facility] [address] [place] [address] 12/22/2023 Armin Jones [facility] [address] [place] [address] 12/28/2023 Armin Jones [facility] [address] [place] [address] 02/20/2024 Armin Jones [facility] [address] [place] [address] 03/21/2024 Armin Jones [facility] [address] [place] [address] 05/08/2024 Armin Jones [facility] [address] [place] [address] 05/09/2024 Armin Jones [facility] [address] [place] [address] 05/19/2024 Armin Jones [facility] [address] [place] [address] 06/08/2024 Armin Jones Assessments Encounter Date Diagnosis (ICD [...] up with the surgeons Dr. Munroe at [facility] and Dr. Pearson at [facility] regarding question of hiatal hernia [...] K22.10) 09/29/2023 Hiccough (ICD-10 - R06.6) Overall, Manuel appears very well from a [...] keep you advised of his progress. 11/22/2023 Julio (ICD-10 - R06.6) Overall, Manuel appears quite [...] Provider Name:Armin Jones , 06/26/2024 02:40:00 PM, [address] [place] [address], [address], [place], [address], Insurance Providers Payer Name Payer Address Payer Phone Subscriber Number Group Number Insured Name Patient Relationship to Insured Coverage Start Date Coverage End Date [facility] [address] [place] [id number] LOGAN BOLAND Self - patient is the insured Medical (General) History Medical History History ICD Code PVC's COPD Chronic kidney disease stage 3 Hypertension Spinal meningitis as a child Denies [place],DM,CVA Lymphocytic colitis-diagnose d in June of 2018 [...] the hiccups. Normal esophageal motility studies in [facility] of 2023 Surgical History Surgery Date(Month/Year) Shoulders bilateral- Dr. Rosenbaum 20 Hernia repair
--- OUTSIDE RECORDS SUMMARY | 2024-06-25 10:27 | XMS_ITS ---
Author Organization [facility] Address [address] [place] [address] Care Team Providers Care Market Analyst Name Role Phone María GONZALEZ, Eduardo Primary Care Provider Unavailab Armin Garcia [phone] REASON FOR VISIT bile Encounters Encounter Location Date Provider Diagnosis [facility] [address] [place] [address] 06/08/2024 Armin Jones Plan Of Treatment Next Appt Details Provider Name:Armin Jones , 06/26/2024 02:40:00 PM, [address], [address], [place], [address], Progress Notes * LOGAN WASSERMAN JrDOB: [birth year] (64 yo M)Acc No.[id number]:06/08/2024 Patient:?LOGAN WASSERMAN Jr :1960???Age:64 Y???Sex:Male Address:[place], [place], * true * Date:? Generated for Printi ng/Faxing/eTransmitting on:?06/25/2024 10:26 AM EDT
--- OUTSIDE RECORDS SUMMARY | 2024-06-25 10:27 | XMS_ITS ---
Author Organization [facility] Address [address] [place] [address] Care Team Providers Care End Polisher Name Role Phone María GONZALEZ, Eduardo Primary Care Provider Unavailab Armin Garcia Unavailable [phone] REASON FOR VISIT Carmichael pH study Encounters Encounter Location Date Provider Diagnosis [facility] [address] [place] [address] 05/19/2024 Armin Jones Plan Of Treatment Next Appt Details Provider Name:Armin Jones , 06/26/2024 02:40:00 PM, [address], [address], [place], [address], Progress Notes * LOGAN WASSERMAN JrDOB: [birth year] (64 yo M)Acc No.[id number]:05/19/2024 Patient:?LOGAN WASSERMAN Jr :1960???Age:64 Y???Sex:Male Address:[address] [place], [place], * true * Date:? Generated for Printi ng/Famicg/eTransmitting on:?06/25/2024 10:26 AM EDT
--- NOTE | 2024-06-25 10:34 | ED.MALEGU ---
HPI - Male Genitourinary General Chief complaint: Urogenital-Male Stated complaint: Issue in Private Area Time Seen by Provider: 06/25/24 10:05 History of Present Illness HPI Narrative: Patient is a 64-year-old male was having intercourse last night when he felt a pop. There was blood coming out of his penis. It came from the dorsum of the penis. There was positive blood. There is no pain. The penis when down to its normal size without any issues. No swelling. No penile discharge. No pain currently. Patient not on blood thinners. From home. Related Data Home Medications ?Medication ?Instructions ?Recorded ?Confirmed budesonide 3 mg 3 mg PO DAILY 03/19/20 11/09/23 capsule,delayed,extended release omega-3 fatty acids 1,000 mg 1,000 mg PO DAILY 03/19/20 11/09/23 capsule (Fish Oil Concentrate) Previous Rx's ?Medication ?Instructions ?Recorded lisinopril 5 mg tablet 5 mg PO DAILY #90 tabs 12/12/19 sildenafil 100 mg tablet 100 mg PO DAILY PRN sexual 10/07/23 activity 30 days #30 tabs needle (disp) 18 G 18 gauge x 1 #50 ea 11/09/23 (BD Regular [place]vel [place]) safety needles 23 gauge x 5/8 #50 ea 11/09/23 (Easy Touch FlipLock Needle) syringe (disposable) 1 mL (BD Bulk #50 ea 11/09/23 Syringe Slip Tip) syringe with needle 3 mL 21 gauge #30 ea 12/26/23 x 1 1/2 (BD Integra Syringe) testosterone cypionate 200 mg/mL 70 mg (0.35 mL) subcut .BIW 30 06/05/24 intramuscular oil days #4 mL (Depo-Testosterone) Allergies Allergy/AdvReac Type Severity Reaction Status Date / Time No Known Allergies Allergy Verified 06/25/24 09:02 seasonal Allergy Unknown unknown Uncoded 04/07/24 07:44 Review of Systems Review of Systems: No fever no chills no systemic complaints. Yes all other systems are reviewed and are negative PMFSH Past Medical History Attestation statement: The following information was validated with the patient. Medical History Personal history of tobacco use CKD (chronic kidney disease) stage 2, GFR 60-89 ml/min Hypertension PVC's (premature ventricular contractions) COPD (chronic obstructive pulmonary disease) History of meningitis Migraine Hypogonadism in male Surgical History History of colonoscopy History of repair of left rotator cuff History of repair of right rotator cuff Family History Family History Father Liver disease Mother HTN (hypertension) Heavy smoker Heart disease Social History Social History Patient Tobacco Use Status: Former Tobacco user Tobacco use type: Cigarette Cigarette Packs Per Day: 1 Years Smoked: 37, smoked 1-1.5 ppd, quit 13 years prior Substance Use Type: Marijuana Advance Directives: No Advance Directives Information Provided: Yes Do you have a plan to hurt others: No Plan Current occupational status: employed Current occupation: [employer] Physical Exam Vital Signs: Vital Signs: Last Vital Signs Temp 98.9 F 06/25/24 08:59 Pulse 97 06/25/24 08:59 Resp 18 06/25/24 08:59 BP 125/56 L 06/25/24 08:59 Pulse Ox 98 06/25/24 08:59 O2 Del Method Room Air 06/25/24 08:59 BMI result Body Mass Index 28.9 Appearance: Alert. Oriented X3. No acute distress. Eyes: Pupils equal, round and reactive to light. ENT: Pharynx normal. Neck: Normal inspection. Neck supple. No lymph nodes noted. No crepitus CVS: Normal heart rate and rhythm. Pulses normal. Normal S1 and S2 Respiratory: No respiratory distress. Breath sounds normal. No Wheezing. No rales Abdomen: Soft and nontender. No rigidity. No distention. good BS x4 Skin: Skin warm and dry. Normal skin color. Normal skin turgor. Examination of the penis showed the shaft of the penis is not swollen. There is no tenderness on touch. Over the foreskin there is an area of ecchymosis. There is no active bleeding. Very small amount of swelling. There is no discharge at the head of the penis. There is no hernia that was palpable. There is no scrotal tenderness. Extremities: No lower extremity edema. Neurovascular intact to all extremities. No Lacerations. No Rash Neuro: Oriented X 3. No motor deficit. No sensory deficit. Moving all extermities. No slurred speech Medical Decision Making Medical Decision Making MDM Narrative: Patient well appearing no acute distress. There is no pain. Doubt patient had a ruptured penis. Patient has bleeding that is very localized over the foreskin. Question from a varicose vein. There is no gross discharge there is no gross tenderness elicited on palpation. There is no hernia that was noted. There is no scrotal tenderness. There is no scrotal lesion. Will discharge home. Have patient follow-up with urology outpatient Differential Diagnosis Differential Diagnoses: The differential diagnosis associated with the presentation includes Ruptured penis, laceration, Admission/Observation Consideration of admission/observation: Escalation of care including admission/observation considered Lab Data [facility] Lab Attestation statement: I reviewed the patient's lab results. Discharge Plan Discharge Clinical Impression: Penis symptom or sign Patient Disposition: Home, Self-Care Additional Instructions: Ice follow-up on an outpatient basis with Urology. Prescriptions: No Action lisinopril 5 mg tablet 5 mg PO DAILY Qty: 90 1RF sildenafil 100 mg tablet 100 mg PO DAILY PRN (Reason: sexual activity) 30 Days Qty: 30 6RF Rx Instructions: administer 60 minutes before intended activity (DME) syringe with needle [BD Integra Syringe] 3 mL 21 gauge x 1 1/2 syringe See Rx Instructions .ROUTE .MEDSUPPLY Qty: 30 1RF Rx Instructions: As directed- 8/month budesonide 3 mg capsule,delayed,extend.release 3 mg PO DAILY omega-3 fatty acids [Fish Oil Concentrate] 1,000 mg capsule 1,000 mg PO DAILY (DME) BD Bulk Syringe Slip Tip 1 mL syringe See Rx Instructions miscellaneous .MEDSUPPLY Qty: 50 0RF Rx Instructions: As directed (DME) needle (disp) 18 G [BD Regular [place]vel [place]] 18 gauge x 1 needle See Rx Instructions .ROUTE .MEDSUPPLY Qty: 50 0RF Rx Instructions: As directed - draw up testosterone (DME) Easy Touch FlipLock Needle 23 gauge x 5/8 needle See Rx Instructions .ROUTE .MEDSUPPLY Qty: 50 0RF Rx Instructions: As directed - administer testosterone testosterone cypionate [Depo-Testosterone] 200 mg/mL oil 70 mg subcut .BIW 30 Days Qty: 4 5RF Rx Instructions: Twice a week injection Referrals: Diego Kennedy MD [Physician] - 07/02/24 Print Language: Latvian
[2024-06-25 10:51] VITALS: BP 119/61; PULSE 81; RESP 16; TEMP 36.6; O2SAT 97
[2024-06-25 11:17] VITALS: BP 119/61; PULSE 81; RESP 16; TEMP 36.6; O2SAT 97
== END 2024-06-25 11:18 | disposition home or self-care (01) ==
PROVIDERS: Emergency Provider Emergency Medicine Emergency Medical Services; PCP Internal Medicine
DX: N48.89 Other specified disorders of penis (principal)
CPT/HCPCS: 99282

== ENCOUNTER 2024-08-08 09:08 | Outpatient (AMB) | payer MEDICAID, SELFPAY ==
--- NOTE | 2024-08-08 09:10 | A.OFFVIS_ITS ---
Intake Visit Reasons: penile pain Intake Note: Patient is Present for Penile pain seen at [facility] Urology Medication: Testosterone Antibiotic Allergies: None Blood Thinners:None Filler Operator Required: No Accompanied by: Self / Same As Patient Allergies No Known Allergies Allergy (Verified 08/08/24 09:13) seasonal Allergy (Unknown, Uncoded 04/07/24 07:44) unknown HPI Comments Details: Logan is a male. He is a patient of Dr. Daniel. He is seen for the following urologic conditions - hypogonadism - erectile dysfunction Here today regarding penile pain History of penile fracture proximally 1 month ago Bruising with potential scarring on dorsal surface Discussed use of vasa dilator and antioxidant medication Prescriptions provided Instructions for penile vacuum pump Follow-up as planned Hypogonadism He presents today for further evaluation of complaints regarding hypogonadism - on treatment from his PCP Initial symptoms include erectile dysfunction Yes decreased libido Yes change in mood/depression Yes in muscle size/strength Yes increased fatigue/malaise Yes increased abdominal fat No tender breasts/gynecomastia No hair loss No osteopenia No The onset of symptoms has been gradual lb longstanding Erectile status nocturnal erections do occur but uses Viagra to supplement He has been taking - none Laboratory results 02/02 T 2130 with LH 0.3 - 03/06 T 1300, LH 0.3, 11/04 T 510 F 110 P 2.2, 02/03 971 P 2.2, 08/05 781 2.9 46, 02/04 739, 09/05 794 2.6, 03/09 1230 4.5 (Tuesday injection, labs), 05/07 38 3.3 44, 11/07 T 510 3.4 47, 05/08 421 96 Current therapy includes injectable injectable testosterone - 12/04 0.75 cc weekly Tuesday Labs Response to therapy has been improved baseline symptoms Prior therapy includes injectable testosterone [facility] Medical History Personal history of tobacco use CKD (chronic kidney disease) stage 2, GFR 60-89 ml/min Hypertension PVC's (premature ventricular contractions) COPD (chronic obstructive pulmonary disease) History of meningitis Migraine Hypogonadism in male Surgical History History of colonoscopy History of repair of left rotator cuff History of repair of right rotator cuff Family History Father Liver disease Mother HTN (hypertension) Heavy smoker Heart disease Social History Patient Tobacco Use Status: Former Tobacco user Tobacco use type: Cigarette Cigarette Packs Per Day: 1 Years Smoked: 37, smoked 1-1.5 ppd, quit 13 years prior Substance Use Type: Marijuana Current occupational status: employed Current occupation: [employer] Review of Systems Const Denies chills and Denies fever(s) Card Reports no additional complaints and Denies syncope Resp Denies cough GI Denies abdominal pain and Denies heartburn Reports as per HPI and Denies change in libido Neuro Denies syncope Psych Denies change in libido Endo Denies change in libido Physical Exam Const General: cooperative, healthy appearing, comfortable and no acute distress Orientation/consciousness: patient oriented x3 HEENT Face and sinus: Yes normal facial exam Mouth: moist mucous membranes Neck Neck: Yes normal visual inspection, Yes full ROM and Yes trachea midline Chest Chest palpation & inspection: normal inspection of the chest Resp Effort & Inspection: normal respiratory effort, able to speak in complete sentences and no respiratory distress GI Inspection: Yes normal to inspection Back/Spine/Pelvis Cervical Spine: normal cervical lordosis Thoracic/Lumbar Spine: thoracic and lumbar spine normal to inspection Skin General skin exam: no rashes or lesions noted Neuro General: patient oriented x3, gait normal, tone normal and moves all extremities Extrem General: Yes normal to inspection and Yes capillary refill normal Assessment & Plan Assessment & Plan (1) Fracture of corpus cavernosum penis, sequela: Code(s): S39.840S - Fracture of corpus cavernosum penis, sequela Category: Medical (2) Peyronie's disease: Code(s): N48.6 - Induration penis plastica Category: Medical Plan Keep follow-up Medications: New tadalafil [id number] [facility] [id number] Member [id number] 5 mg PO DAILY 90 tabs 1RF sexual activity 90 days N48.6 - Induration penis plastica pentoxifylline ER administer with meals 400 mg PO BID 180 tabs 1RF 90 days N48.6 - Induration penis plastica Patient Instructions: This note is constructed using voice recognition software. While every effort has been made to ensure accuracy savings counselor errors may have been included. Imaging studies, laboratory and physical exam results were discussed and reviewed in detail. No major barriers to patient understanding were identified. An opportunity to ask questions regarding the treatment plan was provided. All questions were answered. The patient expressed understanding and agreement with the above treatment plan. The patient is aware they should contact our office by phone for worsening of their current condition or the appearance of new urologic symptoms. Compliance is encouraged with any medications and followup testing that is ordered. It is a privilege to participate in the urologic care of your patient. If you have any questions or concerns regarding treatment for the above conditions, or other urologic issues, please do not hesitate to contact me. The office telephone contact is [phone]. Sincerely, Dr Diego Kennedy MD, [facility] - Urology Compassionate Specialist Care for the Genitourinary System Coding Level of Care Code Est Pt Level 4 (84504) Complex EM visit Add On G2211 Diagnoses Fracture of corpus cavernosum penis, sequela S39.840S Peyronie's disease N48.6
--- OUTSIDE RECORDS SUMMARY | 2024-08-08 09:57 | XMS_ITS | Patient Health Record ---
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 Name Role Phone Eduardo Daniel MD Primary Care Provider Armin Pandya [phone] Allergies No Known Allergies Results Component Value Reference Range Notes Pathology Reviewed date:10/11/2023 12:27:17 PM Interpretation: Performing Lab:[facility], [address] [place] [phone] Notes/Report: Immunoglobulin A Reviewed date:10/24/2023 09:17:46 PM Interpretation: Performing Lab:[facility], [address] [place] [phone] Notes/Report: Immunoglobulin A 365 70-320 mg/dL THIS TEST WAS PERFORMED AT: [facility] [address] [place] [phone] JULIO POLLOCK MD Transglutaminase Ab IgG Reviewed date:10/24/2023 09:18:08 PM Interpretation: Performing Lab:[facility], [address] [place] [phone] Notes/Report: Transglutaminase Ab IgG <1.0 Value Interpretation ----- <15.0 Antibody not detected > or = 15.0 Antibody detected THIS TEST WAS PERFORMED AT: [facility] [address] [place] [phone] JULIO POLLOCK MD Transglutaminase IgA Reviewed date:10/24/2023 09:18:15 PM Interpretation: Performing Lab:[facility], [address] [place] [phone] Notes/Report: Transglutaminase IgA <1.0 Value Interpretation ----- <15.0 Antibody not detected > or = 15.0 Antibody detected THIS TEST WAS PERFORMED AT: [facility] [address] [place] [phone] JULIO POLLOCK MD Gliadin Ab Panel Reviewed date:10/24/2023 09:18:28 PM Interpretation: Performing Lab:[facility], [address] [place] [phone] Notes/Report: Gliadin Deamidated IgA Ab 1.0 Value Interpretation ----- <15.0 Antibody not detected > or = 15.0 Antibody detected Gliadin Deamidated IgG Ab <1.0 Value Interpretation ----- <15.0 Antibody not detected > or = 15.0 Antibody detected THIS TEST WAS PERFORMED AT: [facility] [address] [place] [phone] JULIO POLLOCK MD Endomysial IgA rflx Titer Reviewed date:10/24/2023 09:18:45 PM Interpretation: Performing Lab:[facility], [address] [place] [phone] Notes/Report: Endomysial IgA Antibody Negative Negative THIS TEST WAS PERFORMED AT: [facility]/[address] [phone] OPAL AVILA MD,PHD Endomysial Titer TNP FL upper GI w air Reviewed date:03/02/2024 12:16:15 AM Interpretation: Performing Lab: Notes/Report: [address] [address] Fluoroscopy Report Signed Patient: Logan Boland MR#: [id number] 5 : 1960 Acct:[id number] Age/Sex: 63 / M ADM Date: 10/12/23 Loc: ANA Attending Dr: Armin Jones MD Ordering Physician: Armin Jones MD Date of Service: 08/28/24 Procedure(s): FL upper GI w air Accession Number(s): [id number] cc: Eduardo Daniel MD; Armin Jones MD [...] 01/18/24 1205 DD/ 0822 TD/TT: 10/12/23 0852 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 Machine 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: NM gastric emptying study Reviewed date:10/30/2023 05:56:02 PM Interpretation: Performing Lab: Notes/Report: [address] [address] Nuclear Medicine Report Signed Patient: Logan Boland MR#: [id number] 5 : 1960 Acct:[id number] Age/Sex: 63 / M ADM Date: 10/26/23 Loc: [facility] Attending Dr: Armin Jones MD Ordering Physician: Armin Jones MD Date of Service: 10/26/23 Procedure(s): NM gastric emptying study Accession Number(s): [id number] cc: Eduardo Daniel MD; Armin Jones MD [...] grading per JNMT Consensus Recommendations in 2008 (https://tech.snmjournals.org/content/36/44) Grade 1 (mild retention): 11-20% at 4h Grade 2 (moderate retention): 21-35% at 4h Grade 3 (severe retention): 36-50% at 4h Grade 4 (very severe retention): >50% retention at 4h Electronically signed by: Bethany Clay MD 10/26/2023 02:17 PM EDT RP Dictated By: Bethany Clay MD Signed By: <Electronically signed by Bethany Clay MD in OV> 10/26/23 1417 DD/ 0756 TD/TT: 10/26/23 1115 Warping Machine Operator: NANDO CT head/brain w con Reviewed date:12/22/2023 07:23:05 AM Interpretation: Performing Lab: Notes/Report: [address] [address] [address] Scan Report Signed Patient: Logan Boland MR#: [id number] 5 : 1960 Acct:[id number] Age/Sex: 63 / M ADM Date: 12/21/23 Loc: HO.CT Attending Dr: Armin Jones MD Ordering Physician: Armin Jones MD Date of Service: 12/21/23 Procedure(s): CT head/brain w IV con Accession Number(s): [id number] cc: Eduardo Daniel MD; Armin Jones MD [...] contrast enhancement in the region of the [place]. Sulci and ventricles normal. No [...] by: Matt Wilson MD 12/21/2023 05:18 PM [facility] Dictated By: Matt Wilson MD Signed By: <Electronically signed by Matt Wilson MD in OV> 12/21/23 1718 DD/ 1334 TD/TT: 12/21/23 1348 Warping Machine Operator: Creatinine GFR POC Reviewed date:12/22/2023 01:40:21 PM Interpretation: Performing Lab:[facility], [address] [place] [phone] Notes/Report: [id number] 1.02 >60 1329 HO.CRUZED Creatinine POC 1.0 0.5-1.4 mg/dL GFR POC > 60 Chronic Kidney Disease: Estimated GFR < 60 mL/min/1.73m2 Severe Kidney Disease: Estimated GFR < 15 mL/min/1.73m2 Reason For Referral Referring Provider First Name Eduardo Referring Provider Last Name María Referring Provider Speciality Internal M edicine Referred Organization [facility] Referred Provider Armin Jones Referred Address [address] [place] [phone],[place] Referred Provider Specialty Gastroentero logy General Notes Saba Schumacher 2024 10:47:22 AM >requested a [facility] referral from Dr. Daniel's office for visit with Dr. Jones on 06-26-24 Referral Priority Routine Medications Medication SIG (Take, Route, Frequency, Duration) Notes Start Date End Date Status Vitamin C Active Protein Active Omeprazole 40 MG TAKE 1 CAPSULE BY [facility] EVERY MORNING for 30 Not-Taking Zinc Active Ondansetron 4 MG 1 tablet on the tong ue and allow to dissolve Orally Every 4 to 6 hours for nausea and vomiting. You can also take one every morning and every afternoon to try to prevent the episodes of belching/vomiting, etc in the first place. for 30 day(s) 12/06/2023 Active Amino Acid Active Budesonide 3 MG 1 Orally Once a day for 90 days Active Imodium A-D 2 MG 1 or 2 Orally Every 4 to 6 hours as needed for diarrhea for 30 days Active Testosterone Cypionate as directed DIRECTED Active Losartan Potassium 25 MG TAKE 1 TABLET B Y MOUTH EVERY DAY Oral for 90 Active Fish Oil 1000 MG 1 capsule Orally Onc e a day Active Multi Vitamin/Minerals - as directed Ora lly once a day Active Immunizations Vaccine Route Administration Date Status [...] Problem Gastro-esophage al reflux disease without esophagitis (554750489) Gastro-esophageal reflux disease without esophagitis (K21.9) Active confirmed Problem 888620850 Abdominal bloati ng (R14.0) Active confirmed Problem Hiccough (R06.6) Active confirmed Problem Nausea and vomiting (14470304) Nausea with vomiting, unspecified (R11.2) Active confirmed Problem 66222780 Rectal bleed (K62.5) Active confirmed Problem Erosive esophagitis (87395117) Erosive esophagitis (K22.10) Active confirmed Problem Belching (13216312) Belching (R14.2) Active confirmed Problem 33200871 Diarrhea, unspecified type (R19.7) Active confirmed Problem 37510886 Lymphocytic colitis (K52.832) Active confirmed Problem 971728497 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 Problem Nausea and vomiting, intractability of vomiting not specified, unspecified vomiting type (R11.2) Active confirmed Problem Acute vomiting (42518590) Acute vomiting (R11.10) Active confirmed Vital Signs Temperature 97.7 degrees Fahrenheit 03/21/2024 Blood pressure diastolic 77 mm Hg 06/26/2024 Height 71 in 06/26/2024 Blood pressure systolic 111 mm Hg 06/26/2024 Weight 199 lbs 06/26/2024 BMI 27.75 kg/m2 06/26/2024 Encounters Encounter Location Date Provider Diagnosis [facility] [address] [place] [phone] 10/03/2023 Armin Jones Gastro-esophageal reflux disease without esophagitis K21.9 ; Hiatal hernia K44.9 ; Erosive esophagitis K22.10 ; Nausea with vomiting, unspecified R11.2 and Belching R14.2 [facility] [address] [place] [address] 09/29/2023 Armin Jones Belching R14.2 ; [place] with vomiting, unspecified R11.2 ; Hiccough R06.6 and Lymphocytic colitis K52.832 [facility] [address] [place] [address] 11/22/2023 Armin Jones Abdominal bloating R14.0 ; Belching R14.2 ; Hiccough R06.6 and Acute vomiting R11.10 [facility] [address] [place] [address] 03/21/2024 Armin Jones Hiccough R06.6 ; [place] and vomiting, intractability of vomiting not specified, unspecified vomiting type R11.2 and Lymphocytic colitis K52.832 [facility] [address] [place] [address] 06/26/2024 Armin Jones Belching R14.2 ; Hiccough R06.6 and Nausea with vomiting, unspecified R11.2 [facility] [address] [place] [address] 09/06/2023 Armin Jones [facility] [address] [place] [address] 09/26/2023 Armin Jones [facility] [address] [place] [address] 10/10/2023 Armin Jones Nausea and vomiting, intractability of vomiting not specified, unspecified vomiting type R11.2 ; Belching R14.2 and Hiccough R06.6 [facility] [address] [place] [address] 10/30/2023 Armin Jones [facility] [address] [place] [address] 11/09/2023 Armin Jones [facility] [address] [place] [address] 11/22/2023 Armin Jones [facility] [address] [place] [address] 11/22/2023 Armin Jones [facility] [address] [place] [address] 12/05/2023 Armin Jones Nausea with vomiting , unspecified R11.2 [facility] [address] [place] [address] 12/15/2023 Armin Jones [facility] [address] [place] [address] 12/22/2023 [facility] [address] [place] [address] 12/28/2023 Armin Jnoes [facility] [address] [place] [address] 02/20/2024 [facility] [address] [place] [address] 03/21/2024 Armin Jones [facility] [address] [place] [address] 05/08/2024 Armin Jones [facility] [address] [place] [address] 05/09/2024 Armin Jones [facility] [address] [place] [address] 05/19/2024 Armin Jones [facility] [address] [place] [address] 06/08/2024 Armin Jones [facility] [address] [place] [address] 07/09/2024 Armin Jones Assessments Encounter Date Diagnosis (ICD [...] effects of Tardive dyskinesia(faci al twitching,etc) Overall, Manuel appears very well from a [...] keep you advised of his progress. 03/21/2024 Julio (ICD-10 - R06.6) Follow up with the surgeons Dr. Munroe at [facility] and Dr. Pearson at [facility] regarding question of hiatal hernia surgery. You can try the Chlorpromazine( Thorazine) again to see if that helps---watch for symptoms of Tardive Dyskinesia(move ments or facial twitches) You can try the daily omeprazole again to see if that helps Overall, Manuel continues to appear well from a clinical standpoint, but unfortunately his intermittent and problematic symptoms of the hiccups, nausea, and vomiting persist. We did review his extensive workup and need to follow-up with one of the surgeons to see if they think a hiatal hernia surgery might help the symptoms. Of note, I did advise him that is no guarantee and hiatal hernia surgery may actually not help the symptoms. I do not think he needs any further diagnostic testing on my part. I did recommend he continue to attempt symptomatic treatment with the PPI, as well as possibly the Thorazine albeit with the downside of the Thorazine not helping and possibly causing some adverse side effects. I will plan to see Al later in the Spring but did advise him to contact me if he has any problems or questions I can be of assistance with, as well as to keep me posted after he meets with the surgeon. Thank you again for allowing me to participate in Al's care. I shall continue to keep you advised of his progress. 03/21/2024 Nausea and vomiting, intractability of vomiting not specified, unspecified vomiting type (ICD-10 - R11.2) Overall, Manuel continues to appear well from a clinical standpoint, but unfortunately his intermittent and problematic symptoms of the hiccups, nausea, and vomiting persist. We did review his extensive workup and need to follow-up with one of the surgeons to see if they think a hiatal hernia surgery might help the symptoms. Of note, I did advise him that is no guarantee and hiatal hernia surgery may actually not help the symptoms. I do not think he needs any further diagnostic testing on my part. I did recommend he continue to attempt symptomatic treatment with the PPI, as well as possibly the Thorazine albeit with the downside of the Thorazine not helping and possibly causing some adverse side effects. I will plan to see Al later in the Spring but did advise him to contact me if he has any problems or questions I can be of assistance with, as well as to keep me posted after he meets with the surgeon. Thank you again for allowing me to participate in Al's care. I shall continue to keep you advised of his progress. 06/26/2024 Belching (ICD-10 - R14.2) Let me know the plan with Dr. Pearson. Keep the appointment with the GI in [place] if need be. Overall, Manuel continues to appear very well from a clinical standpoint. At this point I advised him that I do not have any thing to offer from a therapeutic or further diagnostic standpoint. As such, we shall await the results of the pH study and see what Dr. Pearson thinks as far as surgery is concerned. I would agree that if there is no sign of acid reflux then the concern would be that a fundoplication could make his symptoms worse since many times patients who are status post a hiatal hernia operation have gas bloat with difficulty belching. I did advise Al to let me know 1 way or the other what the plans are from Dr. Pearson. I did advise Al that it might not be a bad idea to wait until he sees the GI doctors in [place] for their opinion before going through surgery unless Dr. Pearson thinks there would be a good chance of the surgery helping him. However, Al is quite desperate to get the situation resolved as soon as possible. I have given him an appointment to see me again in the Fall for a follow-up visit but did advise him to contact me sooner if he has any problems or questions,or simply just to keep me posted. Al was comfortable with this plan Thank you again for allowing me to participate in Al's care. I shall continue to keep you advised of his progress. 10/10/2023 Belching (ICD-10 - R14.2) 10/10/2023 Nausea [...] progress. 03/21/2024 Lymphocytic colitis (ICD-10 - K52.832) Overall, Manuel continues to appear well from a clinical standpoint, but unfortunately his intermittent and problematic symptoms of the hiccups, nausea, and vomiting persist. We did review his extensive workup and need to follow-up with one of the surgeons to see if they think a hiatal hernia surgery might help the symptoms. Of note, I did advise him that is no guarantee and hiatal hernia surgery may actually not help the symptoms. I do not think he needs any further diagnostic testing on my part. I did recommend he continue to attempt symptomatic treatment with the PPI, as well as possibly the Thorazine albeit with the downside of the Thorazine not helping and possibly causing some adverse side effects. I will plan to see Manuel later in the Spring but did advise him to contact me if he has any problems or questions I can be of assistance with, as well as to keep me posted after he meets with the surgeon. Thank you again for allowing me to participate in Manuel's care. I shall continue to keep you advised of his progress. 06/26/2024 Hiccough (ICD-10 - R06.6) Overall, Manuel continues to appear very well from a clinical standpoint. At this point I advised him that I do not have any thing to offer from a therapeutic or further diagnostic standpoint. As such, we shall await the results of the pH study and see what Dr. Pearson thinks as far as surgery is concerned. I would agree that if there is no sign of acid reflux then the concern would be that a fundoplication could make his symptoms worse since many times patients who are status post a hiatal hernia operation have gas bloat with difficulty belching. I did advise Al to let me know 1 way or the other what the plans are from Dr. Pearson. I did advise Al that it might not be a bad idea to wait until he sees the GI doctors in [place] for their opinion before going through surgery unless Dr. Pearson thinks there would be a good chance of the surgery helping him. However, Manuel is quite desperate to get the situation resolved as soon as possible. I have given him an appointment to see me again in the Fall for a follow-up visit but did advise him to contact me sooner if he has any problems or questions,or simply just to keep me posted. Manuel was comfortable with this plan Thank you again for allowing me to participate in Manuel's care. I shall continue to keep you advised of his progress. 10/10/2023 Hiccough (ICD-10 - R06.6) 10/03/2023 Nausea [...] to keep you advised of his progress. 06/26/2024 Nausea with vomiting, unspecified (ICD-10 - R11.2) Overall, Manuel continues to appear very well from a clinical standpoint. At this point I advised him that I do not have any thing to offer from a therapeutic or further diagnostic standpoint. As such, we shall await the results of the pH study and see what Dr. Pearson thinks as far as surgery is concerned. I would agree that if there is no sign of acid reflux then the concern would be that a fundoplication could make his symptoms worse since many times patients who are status post a hiatal hernia operation have gas bloat with difficulty belching. I did advise Al to let me know 1 way or the other what the plans are from Dr. Pearson. I did advise Al that it might not be a bad idea to wait until he sees the GI doctors in [place] for their opinion before going through surgery unless Dr. Pearson thinks there would be a good chance of the surgery helping him. However, Manuel is quite desperate to get the situation resolved as soon as possible. I have given him an appointment to see me again in the Fall for a follow-up visit but did advise him to contact me sooner if he has any problems or questions,or simply just to keep me posted. Al was comfortable with this plan Thank you again for allowing me to [...] Next Appt Details Provider Name:Armin Jones , 11/27/2024 10:40:00 AM, [address], [address], [place], [address], Insurance Providers Payer Name Payer Address Payer Phone Subscriber Number Group Number Insured Name Patient Relationship to Insured Coverage Start Date Coverage End Date [facility] [address] [place] [address] [id number] LOGAN BOLAND Self - patient is the insured Medical (General) History Medical History History ICD Code PVC's COPD Chronic kidney disease stage 3 Hypertension Spinal meningitis as a child Denies NC,DM,CVA Lymphocytic colitis-diagnose d in June of 2018 [...] and was also on some Thorazine which june or june not have helped with some of the hiccups but he stopped that due to potential side effects. He also had a negative CT and MRI of the brain. He has been seen by neurology without any explanation offered in regard to the hiccups. Normal esophageal motility s tudies in January of 2024. He is seeing Dr. Pearson inn 2024 for possible hiatal hernia surgery for his symptoms and had a 24 hour pH study. Surgical History Surgery Date(Month/Year) Hernia repair Shoulders bilateral- Dr. Rosenbaum 2003,20 17
== END 2024-08-08 09:36 | disposition home or self-care (01) ==
LOC: HO.HUSH 09:09
PROVIDERS: PCP Internal Medicine; Visit Provider Urology
DX: S39.840S Fracture of corpus cavernosum penis, sequela (principal); N48.6 Induration penis plastica
CPT/HCPCS: 99214

== ENCOUNTER → 2024-08-08 09:08 | Outpatient (BNVA) | payer MEDICAID, SELFPAY | PROVIDERS: PCP Internal Medicine; Visit Provider Urology | DX: N48.6 Induration penis plastica (principal); S39.840S Fracture of corpus cavernosum penis, sequela | CPT/HCPCS: 99212 ==

== ENCOUNTER 2024-09-03 14:59 | Emergency (ER) | payer MEDICAID, SELFPAY ==
--- NOTE | ~2024-09-03 | XR_ITS ---
EXAMINATION: XR FOOT 3 OR MORE VIEWS LEFT HISTORY: table saw lac to L thumb/2nd digit COMPARISON: There are no prior studies available for comparison. FINDINGS: Three views of the left hand are submitted. Osseous mineralization is normal. There is no fracture or dislocation. The joint spaces are preserved. There is a tiny metallic density dorsal to the PIP joint of the index finger which could represent a foreign body. XR/XR foot LT min 3V IMPRESSION: No evidence of fracture of the left hand. Possible metallic foreign body dorsal to the PIP joint of the index finger. Electronically signed by: Armin Daniels MD 09/03/2024 03:16 PM EDT
[2024-09-03 15:02] VITALS: BP 150/65; PULSE 85; RESP 16; TEMP 36.6; O2SAT 96; BMI 28.0
--- NOTE | 2024-09-03 15:03 | ED.SKABFB ---
HPI - Skin/Abscess/Foreign Bdy General Chief complaint: Wound/Laceration Stated complaint: finger lac Time Seen by Provider: 09/03/24 16:09 Source: patient Mode of arrival: ambulatory Limitations: no limitations History of Present Illness ED Provider: HPI narrative: Patient apparently got superficial laceration of the left thumb and 2nd digit tips with loss of small amount of skin no involvement of the bone while working on the table saw Related Data Home Medications ?Medication ?Instructions ?Recorded ?Confirmed budesonide 3 mg 3 mg PO DAILY 03/19/20 11/09/23 capsule,delayed,extended release omega-3 fatty acids 1,000 mg 1,000 mg PO DAILY 03/19/20 11/09/23 capsule (Fish Oil Concentrate) Previous Rx's ?Medication ?Instructions ?Recorded lisinopril 5 mg tablet 5 mg PO DAILY #90 tabs 12/12/19 sildenafil 100 mg tablet 100 mg PO DAILY PRN sexual 10/07/23 activity 30 days #30 tabs needle (disp) 18 G 18 gauge x 1 #50 ea 11/09/23 (BD Regular Bevel [place]) safety needles 23 gauge x 5/8 #50 ea 11/09/23 (Easy Touch FlipLock Needle) syringe (disposable) 1 mL (BD Bulk #50 ea 11/09/23 Syringe Slip Tip) testosterone cypionate 200 mg/mL 70 mg (0.35 mL) subcut .BIW 30 06/05/24 intramuscular oil days #4 mL (Depo-Testosterone) syringe with needle 3 mL 21 gauge #30 ea 06/29/24 x 1 1/2 (BD Luer-Raheel Syringe) pentoxifylline 400 mg 400 mg PO BID 90 days #180 tabs 08/08/24 tablet,extended release tadalafil 5 mg tablet 5 mg PO DAILY sexual activity 90 08/08/24 days #90 tabs bacitracin zinc 500 unit-polymyxin 1 appl topical BID #28.3 grams 09/03/24 B 10,000 unit/gram topical ointment Allergies Allergy/AdvReac Type Severity Reaction Status Date / Time No Known Allergies Allergy Verified 09/03/24 15:06 seasonal Allergy Unknown unknown Uncoded 09/03/24 15:06 Review of Systems Review of Systems: Yes all other systems are reviewed and are negative PMFSH Past Medical History Medical History Personal history of tobacco use CKD (chronic kidney disease) stage 2, GFR 60-89 ml/min Hypertension PVC's (premature ventricular contractions) COPD (chronic obstructive pulmonary disease) History of meningitis Migraine Hypogonadism in male Surgical History History of colonoscopy History of repair of left rotator cuff History of repair of right rotator cuff Family History Family History Father Liver disease Mother HTN (hypertension) Heavy smoker Heart disease Social History Social History Patient Tobacco Use Status: Former Tobacco user Tobacco use type: Cigarette Cigarette Packs Per Day: 1 Years Smoked: 37, smoked 1-1.5 ppd, quit 13 years prior Substance Use Type: Marijuana Advance Directives: No Advance Directives Information Provided: No Current occupational status: employed Current occupation: [employer] Physical Exam Vital Signs: Vital Signs: Last Vital Signs Temp 98.2 F 09/03/24 16:53 Pulse 74 09/03/24 16:53 Resp 14 09/03/24 16:53 BP 139/63 09/03/24 16:53 Pulse Ox 98 09/03/24 16:53 O2 Del Method Room Air 09/03/24 16:53 BMI result Body Mass Index 28.0 Extrem: Hand/finger images:  1. Loss of superficial skin and the nail no deeper injuries bone not exposed 2. Lost of tip of the finger without involving the bone with partial damage to the nail Course Course Course Narrative: This is an RME performed by Mya Ayala CNP: Additional HPI, ROS, PE not included below will be deferred to primary provider. Patient is a 64 year old male right-hand dominant who presents emergency department for evaluation of accidental laceration to the distal tip of the left thumb and over the distal tip/nail of the left 2nd digit sustained from a table saw. No use of anticoagulants. Last tetanus believed to be >5 years. wet to try dressing placed in triage Plan: Obtaining XR to exclude osseous abnormality Medications Administered Discontinued Medications Generic Name Dose Route Start Last Admin Trade Name Freq PRN Reason Stop Dose Admin Diphtheria/Tetanus/Acell Pertussis 0.5 ml 09/03/24 16:32 09/03/24 16:41 Diphth,Pertus(Acell),Tet Adult 0.5 Ml Syringe IM 09/03/24 16:33 0.5 ml .ONCE ONE Administration Silver Nitrate 1 appl 09/03/24 16:22 09/03/24 16:41 Silver Nitrate Applicator Stick..Ea. TOPICAL 09/03/24 16:23 1 appl ONCE ONE Administration Medical Decision Making Medical Decision Making MDM Narrative: Patient with superficial injury to the left thumb and index finger tip no deeper injuries patient was given tetanus shot and antibiotics local wound care was given and Iodofarn dressing was applied Independent Interpretation I performed an independent interpretation of an: Plain X-Ray Radiology Impression Discussion of test interpretation with radiology: I have reviewed the radiologist's reading. Discharge Plan Discharge Clinical Impression: Laceration Patient Disposition: Home, Self-Care Instructions: Finger Laceration (ED) Additional Instructions: Local care as advised Apply bacitracin ointment twice a day Follow with the PCP as needed Prescriptions: New bacitracin zinc-polymyxin B 500-10,000 unit/gram ointment 1 appl topical BID Qty: 28.3 0RF No Action lisinopril 5 mg tablet 5 mg PO DAILY Qty: 90 1RF sildenafil 100 mg tablet 100 mg PO DAILY PRN (Reason: sexual activity) 30 Days Qty: 30 6RF Rx Instructions: administer 60 minutes before intended activity (DME) syringe with needle [BD Luer-Raheel Syringe] 3 mL 21 gauge x 1 1/2 syringe See Rx Instructions .ROUTE .COMPLEX Qty: 30 0RF Dose Instruction: USE DIRECTED USE 8 PER MONTH Rx Instructions: USE DIRECTED USE 8 PER MONTH budesonide 3 mg capsule,delayed,extend.release 3 mg PO DAILY omega-3 fatty acids [Fish Oil Concentrate] 1,000 mg capsule 1,000 mg PO DAILY (DME) BD Bulk Syringe Slip Tip 1 mL syringe See Rx Instructions miscellaneous .MEDSUPPLY Qty: 50 0RF Rx Instructions: As directed (DME) needle (disp) 18 G [BD Regular Bevel [place]] 18 gauge x 1 needle See Rx Instructions .ROUTE .MEDSUPPLY Qty: 50 0RF Rx Instructions: As directed - draw up testosterone (DME) Easy Touch FlipLock Needle 23 gauge x 5/8 needle See Rx Instructions .ROUTE .MEDSUPPLY Qty: 50 0RF Rx Instructions: As directed - administer testosterone pentoxifylline 400 mg tablet extended release 400 mg PO BID 90 Days Qty: 180 1RF Rx Instructions: administer with meals tadalafil 5 mg tablet 5 mg PO DAILY 90 Days Qty: 90 1RF Rx Instructions: [id number] [facility] [id number] Member [id number] testosterone cypionate [Depo-Testosterone] 200 mg/mL oil 70 mg subcut .BIW 30 Days Qty: 4 5RF Rx Instructions: Twice a week injection Interventions: ED Discharge Assessment Last Done: 09/03/24 16:53 Discharge Date/Time: 09/03/24 16:54 Print Language: Irish
--- OUTSIDE RECORDS SUMMARY | 2024-09-03 16:15 | XMS_ITS | Clinical Summary ---
Author Organization [facility] Address [address] [place] [address] Phone Care Team Providers Care Cream Ripener Name Role Phone Eduardo Daniel MD Primary Care Provider [phone]- [phone] Social History Tobacco Use Types Packs/Day Years Used Date Smoking Tobacco: Never Assessed Education Answer Date Recorded Are you interested in more education? Not on paulette e 03/09/2024 Are you concerned about learning? Not on file 03/09/2024 No 03/09/2024 No 03/09/2024 Digital Access Answer Date Recorded No 03/09/2024 No 03/09/2024 Reliable internet access at home? Not on file 03/09/2024 Device with a working camera? Not on file Sex and Gender Information Value Date Recorded Sex Assigned at Male 03/09/2024 1:25 PM EST Legal Sex Male 1:21 PM EST Gender Identity Male 03/09/2024 1:25 PM EST Sexual Orientation Straight 03/09/2024 1: 25 PM EST Plan of Treatment Upcoming Encounters Date Type Department Care Team (Late st Contact Info) Description 09/25/2024 1:40 PM EDT Office Visit [facility] [address] [facility] [address] [place] [address] Keiry Bojorquez MD [address] [place] [phone] [email or web address] Due Date Last Done Comments Adult Td,Tdap Booster 1960 LIPID PANEL 1960 DEPRESSION SCREENING 1972 SMOKING Hx and SMOKELESS TOB ACCO SCREENING 1973 HEPATITIS C SCREENING 1978 HIV ONE-TIME SCREENING (18-6 5 YEARS) 1978 COLOGUARD 2005 COLONOSCOPY 2005 COLORECTAL CANCER SCREENING 2005 FIT TEST 2005 FOBT 2005 SIGMOIDOSCOPY 2005 VIRTUAL COLONOSCOPY 2005 PNEUMOCOCCAL VACCINES (50+ y ears) (1 of 1 - PCV) 2010 ZOSTER VACCINES (1 of 2) 2010 COVID-19 VACCINE ( - 2023-2 5 season) 2023 RSV VACCINE (1 - 1-dose 75+ series) 04/30/2035 HEPATITIS A VACCINES Aged Out No long er eligible based on patient's age to complete this topic HIB VACCINES Aged Out No longer eligi ble based on patient's age to complete this topic MENINGOCOCCAL VACCINES (ACWY) Aged Out No longer eligible based on patient's age to complete this topic MENINGOCOCCAL VACCINES (B) Aged Out N o longer eligible based on patient's age to complete this topic Medical Devices Not on file Insurance [facility] Care Teams Cream Ripener Relationship Specialty Start Date End Date Eduardo Daniel MD [address] [place] [address] PCP - General Internal Medicine 03/09/24 Additional Source Comments The information contained in this document represents components of the legal health record. It is not the complete legal health record.[facility]
--- OUTSIDE RECORDS SUMMARY | 2024-09-03 16:16 | XMS_ITS | Patient Health Record ---
Author Organization [facility] Address [address] [place] [address] Care Team Providers Care Real Estate Paralegal Name Role Phone María (RETIRED) Eduardo GONZALEZ Primary Care Provider Unavailable Armin Jones Unavailable [phone] Allergies No Known Allergies Results Component Value Reference Range Notes Pathology Reviewed date:10/11/2023 12:27:17 PM Interpretation: Performing Lab:[facility], [address] [place] [phone] Notes/Report: Immunoglobulin A Reviewed date:10/24/2023 09:17:46 PM Interpretation: Performing Lab:[facility], [address] [place] [phone] Notes/Report: Immunoglobulin A 365 70-320 mg/dL THIS TEST WAS PERFORMED AT: [facility] [address] [place] [phone] JULIO POLLOCK MD Transglutaminase Ab IgG Reviewed date:10/24/2023 09:18:08 PM Interpretation: Performing Lab:[facility], [address] [place] [phone] Notes/Report: Transglutaminase Ab IgG <1.0 Value Interpretation ----- <15.0 Antibody not detected > or = 15.0 Antibody detected THIS TEST WAS PERFORMED AT: [facility] [address] [place] [phone] JULIO POLLOCK MD Transglutaminase IgA Reviewed date:10/24/2023 09:18:15 PM Interpretation: Performing Lab:[facility], [address] [place] [phone] Notes/Report: Transglutaminase IgA <1.0 Value Interpretation ----- <15.0 Antibody not detected > or = 15.0 Antibody detected THIS TEST WAS PERFORMED AT: [facility] [address] [place] [phone] JULIO POLLOCK MD Gliadin Ab Panel Reviewed date:10/24/2023 09:18:28 PM Interpretation: Performing Lab:[facility], [address] [place] [phone] Notes/Report: Gliadin Deamidated IgA Ab 1.0 Value Interpretation ----- <15.0 Antibody not detected > or = 15.0 Antibody detected Gliadin Deamidated IgG Ab <1.0 Value Interpretation ----- <15.0 Antibody not detected > or = 15.0 Antibody detected THIS TEST WAS PERFORMED AT: [facility] [address] [place] [phone] JULIO POLLOCK MD Endomysial IgA rflx Titer Reviewed date:10/24/2023 09:18:45 PM Interpretation: Performing Lab:[facility], [address] [place] [phone] Notes/Report: Endomysial IgA Antibody Negative Negative THIS TEST WAS PERFORMED AT: [facility] [address] OPAL AVILA MD,PHD Endomysial Titer TNP FL upper GI w air Reviewed date:03/02/2024 12:16:15 AM Interpretation: Performing Lab: Notes/Report: [address] [address] Fluoroscopy Report Signed Patient: Logan Boland MR#: [id number] 5 : 1960 Acct:[id number] Age/Sex: 63 / M ADM Date: 10/12/23 Loc: ANA Attending Dr: Armin Jones MD Ordering Physician: Armin Jones MD Date of Service: 10/12/23 Procedure(s): FL upper GI w air Accession Number(s): [id number] cc: Eduardo Daniel MD; Armin Jones MD [...] 01/18/24 1205 DD/ 0822 TD/TT: 10/12/23 0852 Senior Fund Accountant: NM gastric emptying study Reviewed date:10/30/2023 05:56:02 PM Interpretation: Performing Lab: Notes/Report: [address] [address] Nuclear Medicine Report Signed Patient: Logan Boland MR#: [id number] 5 : 1960 Acct:[id number] Age/Sex: 63 / M ADM Date: 10/26/23 Loc: [facility] Attending Dr: Armin Jones MD Ordering Physician: Armin Jones MD Date of Service: 10/26/23 Procedure(s): NM gastric emptying study Accession Number(s): [id number] cc: Eduardo Daniel MD; Armin Jones MD [...] 10/26/23 1417 DD/ 0756 TD/TT: 10/26/23 1115 Senior Fund Accountant: NANDO CT head/brain w con Reviewed date:12/22/2023 07:23:05 AM Interpretation: Performing Lab: Notes/Report: [address] [address] [address] Scan Report Signed Patient: Logan Boland MR#: [id number] 5 : 1960 Acct:[id number] Age/Sex: 63 / M ADM Date: 12/21/23 Loc: HO.CT Attending Dr: Armin Jones MD Ordering Physician: Armin Jones MD Date of Service: 12/21/23 Procedure(s): CT head/brain w IV con Accession Number(s): [id number] cc: Eduardo Daniel MD; Armin Jones MD [...] contrast enhancement in the region of the [place] of [place]. Sulci and ventricles normal. No [...] by: Matt Wilson MD 12/21/2023 05:18 PM [facility] [employer] Dictated By: Matt Wilson MD Signed By: <Electronically signed by Matt Wilson MD in OV> 12/21/23 1718 DD/ 1334 TD/TT: 12/21/23 1348 Senior Fund Accountant: Creatinine GFR POC Reviewed date:12/22/2023 01:40:21 PM Interpretation: Performing Lab:[facility], [address] [place] [phone] Notes/Report: [id number] 1.02 >60 1329 HO.CRUZED Creatinine POC 1.0 0.5-1.4 mg/dL GFR POC > 60 Chronic Kidney Disease: Estimated GFR < 60 mL/min/1.73m2 Severe Kidney Disease: Estimated GFR < 15 mL/min/1.73m2 Reason For Referral Referring Provider First Name Eduardo Referring Provider Last Name María (RETIR ED) Referring Provider Speciality Internal M edicine Referred Organization [facility] Referred Provider Armin Jones Referred Address [address] [place] [address],[place], [place],[address],[place] Referred Provider Specialty Gastroentero logy General Notes Saba Schumacher 2024 10:47:22 AM >requested a [facility] referral from Dr. Daniel's office for visit with Dr. Jones on 06-26-24 Referral Priority Routine Medications Medication SIG (Take, Route, Frequency, Duration) Notes Start Date End Date Status Vitamin C Active Protein Active Omeprazole 40 MG TAKE 1 CAPSULE BY [facility] EVERY MORNING for 30 Not-Taking Zinc [...] Problem Gastro-esophage al reflux disease without esophagitis (678202840) Gastro-esophageal reflux disease without esophagitis (K21.9) Active confirmed Problem 545377327 Abdominal bloati ng (R14.0) Active confirmed Problem Hiccough (69712510) Hiccough (R06.6) Active confirmed Problem Nausea and vomiting (56965887) Nausea with vomiting, unspecified (R11.2) Active confirmed Problem 10206559 Rectal bleed (K62.5) Active confirmed Problem Erosive esophagitis (30120897) Erosive esophagitis (K22.10) Active confirmed Problem Belching (30806620) Belching (R14.2) Active confirmed Problem 10129105 Diarrhea, unspecified type (R19.7) Active confirmed Problem 90245765 Lymphocytic colitis (K52.832) Active confirmed Problem 930405718 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 Problem Nausea and vomiting (17984766) Nausea and vomiting, intractability of vomiting not specified, unspecified vomiting type (R11.2) Active confirmed Problem Acute vomiting (08400100) Acute vomiting (R11.10) Active confirmed Vital Signs Temperature 97.7 degrees Fahrenheit 03/21/2024 Blood pressure diastolic 77 mm Hg 06/26/2024 Height 71 in 06/26/2024 Blood pressure systolic 111 mm Hg 06/26/2024 Weight 199 lbs 06/26/2024 BMI 27.75 kg/m2 06/26/2024 Encounters Encounter Location Date Provider Diagnosis [facility] Out[facility] [address] [place], [place] [id number] 10/03/2023 Armin Jones Gastro-esophageal reflux disease without esophagitis K21.9 ; Hiatal hernia K44.9 ; Erosive esophagitis K22.10 ; Nausea with vomiting, unspecified R11.2 and Belching R14.2 [facility] [address] [place] [address] 09/29/2023 Armin Jones Belching R14.2 ; [place] with vomiting, unspecified R11.2 ; Hiccough R06.6 and Lymphocytic colitis K52.832 [facility] [address] [place] [address] 11/22/2023 Armin Jones Abdominal bloating R14.0 ; Belching R14.2 ; Hiccough R06.6 and Acute vomiting R11.10 [facility] [address] [place] [address] 03/21/2024 Armin Jones Hiccough R06.6 ; [place] and vomiting, intractability of vomiting not specified, unspecified vomiting type R11.2 and Lymphocytic colitis K52.832 [facility] [address] [place] [address] 06/26/2024 Armin Jones Belching R14.2 ; Hiccough R06.6 and Nausea with vomiting, unspecified R11.2 [facility] [address] [place] [address] 09/06/2023 Armin Jones [facility] [address] [place] [address] 09/26/2023 Armin Jones [facility] [address] [place] [address] 10/10/2023 Armin Jones Nausea and vomiting, intractability of vomiting not specified, unspecified vomiting type R11.2 ; Belching R14.2 and Hiccough R06.6 [facility] [address] [place] [address] 10/30/2023 Armin Jones [facility] [address] [place] [address] 11/09/2023 Armin Jones [facility] [address] [place] [address] 11/22/2023 Armin Jones [facility] [address] [place] [address] 11/22/2023 Armin Jones [facility] [address] [place] [address] 12/05/2023 Armin Jones Nausea with vomiting , unspecified R11.2 [facility] [address] [place] [address] 12/15/2023 Armin De Luna [facility] [address] [place] [address] 12/22/2023 [facility] [address] [place] [address] 12/28/2023 [facility] [address] [place] [address] 02/20/2024 Armin Karen [facility] [address] [place] [address] 03/21/2024 [facility] [address] [place] [address] 05/08/2024 Armin Jones [facility] [address] [place] [address] 05/09/2024 [facility] [address] [place] [address] 05/19/2024 [facility] [address] [place] [address] 06/08/2024 Armin Jones [facility] [address] [place] [address] 07/09/2024 Armin Jones [facility] [address] [place] [address] 08/30/2024 Armin Jones Assessments Encounter Date Diagnosis (ICD Code) Assessment Notes Treatment Notes Treatment Clinical Notes Section Notes 10/03/2023 Gastro-esophageal reflux disease without esophagitis (ICD-10 - K21.9) 10/03/2023 Hiatal hernia (ICD-10 - K44.9) 09/29/2023 Nausea with vomiting, unspecified (ICD-10 - R11.2) Overall, Al appears very well from a [...] up with the surgeons Dr. Munroe at [facility] and Dr. Pearson at [facility] regarding question of hiatal hernia surgery. [...] unspecified vomiting type (ICD-10 - R11.2) Overall, Al continues to appear well from a clinical [...] Keep the appointment with the GI in [place] if need be. Overall, Al continues to appear very well from a [...] until he sees the GI doctors in [place] for their opinion before going through surgery [...] until he sees the GI doctors in [place] for their opinion before going through surgery [...] until he sees the GI doctors in [place] for their opinion before going through surgery [...] Provider Name:Armin Jones , 11/27/2024 10:40:00 AM, [address] [place] [address], [address], [place], [address], Insurance Providers Payer Name Payer Address Payer Phone Subscriber Number Group Number Insured Name Patient Relationship to Insured Coverage Start Date Coverage End Date [facility] [address] [place] [address] [id number] LOGAN BOLAND Self - patient is the insured Medical (General) History Medical History History ICD Code PVC's COPD Chronic kidney disease stage 3 Hypertension Spinal meningitis as a child Denies SD,DM,CVA Lymphocytic colitis-diagnose d in June of 2018 [...] January of 2024. He is seeing Dr. eParson inn 2024 for possible hiatal hernia surgery for his symptoms and had a 24 hour pH study. Surgical History Surgery Date(Month/Year) Hernia repair Shoulders bilateral- Dr. Rosenbaum 17
--- OUTSIDE RECORDS SUMMARY | 2024-09-03 16:16 | XMS_ITS | Data Portability ---
Author Organization [place] - [facility], Allergy Address [address] [place] [id number] Care Team Providers Care Answering Service Operator Name Role Phone MERVAT ANDINO Referring Provider [phone] Assessment Encounter Date Assessment Date Assessment LastModified [...] larynx identified. He has special consultation in [place] in September as well as gastro surgeon at [facility] in the next 2 months. [email or web address] [...] Address Organization Details Recorded Time Chronic hiccup [id number] Active 025 MARCE SHARP MD [address] [place] [address], [phone] , [place] - [facility] 08:51:33 Problem Notes None recorded. Procedures Surgical History Date Name Laterality Status Provider Name and Address Organization Details Recorded Time 03/15/2024 FOL_DP completed MARCE SHARP MD [address] [place] [address], [phone], [facility] - [facility] 03/15/2024 08:51:26 Imaging Results None recorded. Procedure [...] Updated DateTime 03/15/2024 180.34 cm 28 kg/m2 27499.07 g Tisha Ignacio [place] - [facility] 03/15/2024 10:51:48 Social History None recorded. Functional Status None recorded. Mental Status None recorded. Family History Nothing Reported. Medical History Condition Response Hypertension Y Kidney Disease Y Past Encounters Encounter ID Performer Location Encounter Start Date Encounter Closed Date Diagnosis/Indication Diagnosis SNOMED-CT Code Diagnosis ICD10 Code Diagnosis Note [id number] MARCE SHARP MD [facility] [address] [address] 03/15/2024 10:33:39 03/15/2024 11:16:26 Chronic hiccup 180805830 R06.6 Health Concerns Section Related Observation LastModified by Organization Detai ls LastModified Time None Recorded Concern Status LastModified by Organization Details LastModified Time None Recorded Advance Directives Directive None Recorded Payers Insurance Date Sequence Insurance Name Policy Number Policy Vo Covered Member ID Vo Member ID Guarantor Name 03/15/2024 1 [place] [facility] Logan Boland [id number] Logan Guerrero Notes Date Note Type Note Provider Name and Address Organization Details Recorded Time 03/15/2024 text/html Intractable hiccupsOnset 07/17/2023ay and night even while sleepingvomit 6-8 times dailyGI workup was eitjhv43/26/[address] Box -noted small left cerumenChest CT benignbrain imaging per neurology also benignfailed trial of chlorpromazine, prochloperazine, metoclopramide, ondansetron, lorazepam, baclofen, omeprazole PCP tried wax soften drops and sx persist 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
[2024-09-03 16:33] VITALS: BP 139/63; PULSE 74; RESP 14; TEMP 36.8; O2SAT 98
[2024-09-03] MEDS: Silver Nitrate Applicator STICK..EA. 1 APPL TOPICAL (16:41)
[2024-09-03] MEDS: Diphth,Pertus(ACell),Tet Adult 0.5 ML SYRINGE IM (16:41)
[2024-09-03 16:53] VITALS: BP 139/63; PULSE 74; RESP 14; TEMP 36.8; O2SAT 98
== END 2024-09-03 16:54 | disposition home or self-care (01) ==
PROVIDERS: Emergency Provider Internal Medicine; PCP Internal Medicine
DX: S61.012A Laceration without foreign body of left thumb without damage to nail, initial encounter (principal); S61.211A Laceration without foreign body of left index finger without damage to nail, initial encounter; W31.2XXA Contact with powered woodworking and forming machines, initial encounter; Y93.89 Activity, other specified; Y92.9 Unspecified place or not applicable; Y99.9 Unspecified external cause status; Z23 Encounter for immunization
CPT/HCPCS: 73630; 90471; 90715; 99283; 99284

== ENCOUNTER → 2024-09-03 15:03 | Outpatient (BNV) | payer MEDICAID, SELFPAY | PROVIDERS: PCP Internal Medicine; Visit Provider Radiology Diagnostic Radiology | DX: S91.112A Laceration without foreign body of left great toe without damage to nail, initial encounter (principal); S91.115A Laceration without foreign body of left lesser toe(s) without damage to nail, initial encounter; W31.2XXA Contact with powered woodworking and forming machines, initial encounter | CPT/HCPCS: 73630 ==

== ENCOUNTER 2024-11-12 13:26 | Outpatient (REF) | payer MEDICAID, SELFPAY ==
--- OUTSIDE RECORDS SUMMARY | 2024-11-12 14:58 | XMS_ITS | Patient Health Record ---
Author Organization [facility] Address [address] [place] [address] Care Team Providers Care On Site Property Manager Name Role Phone Anjelica Rae Primary Care Provider UnavailArmin Keen Unavailable [phone] Allergies No Known Allergies Results Component Value Reference Range Notes CT head/brain w con Reviewed date:12/22/2023 07:23:05 AM Interpretation: Performing Lab: Notes/Report: [address] [address] [address] Scan Report Signed Patient: Logan Boland MR#: [id number] 5 : 1960 Acct:[id number] Age/Sex: 63 / M ADM Date: 12/21/23 Loc: HO.CT Attending Dr: Armin Jones MD Ordering Physician: Armin Jones MD Date of Service: 12/21/23 Procedure(s): CT head/brain w IV con Accession Number(s): [id number] cc: Eduardo Daniel MD; Armin Jones MD [...] contrast enhancement in the [place]. Sulci and ventricles normal. 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: Creatinine GFR POC Reviewed date:12/22/2023 01:40:21 PM Interpretation: Performing Lab:[facility], [address] [place] [phone] Notes/Report: [id number] 1.02 >60 1329 HO.CRUZED Creatinine POC 1.0 0.5-1.4 mg/dL GFR POC > 60 Chronic Kidney Disease: Estimated GFR < 60 mL/min/1.73m2 Severe Kidney Disease: Estimated GFR < 15 mL/min/1.73m2 Reason For Referral Referring Provider First Name Eduardo Referring Provider Last Name María (RETIR ED) Referring Provider Speciality Internal edicine Referred Organization [facility] Referred Provider Armin Jones Referred Address [address] [place] [address],[place], [place],[address],[place] Referred Provider Specialty Gastroentero logy General Notes Saba Schumacher 2024 10:47:22 AM >requested a [facility] referral from Dr. Daniel's office for visit with Dr. Jones on 06-26-24 Referral Priority Routine Referring Provider First Name Anjelica Referring Provider Last Name Kyra Referring Provider Speciality Internal edicine Referred Organization [facility] Referred Provider Armin Jones Referred Address [address] [place] [address],[place],[place] Referred Provider Specialty Gastroentero logy General Notes Saba Schumacher 2024 03:13:46 PM >Dr. Rae's office will be seeing the patient on 11-13-2024 they will not issue a [facility] referral until the patient is seen Referral Priority Routine Medications Medication SIG (Take, Route, Frequency, Duration) Notes Start Date End Date Status Vitamin C Active Protein Active Omeprazole 40 MG TAKE 1 CAPSULE BY [facility] EVERY MORNING for 30 Not-Taking Zinc Active [...] Problem Gastro-esophage al reflux disease without esophagitis (531457388) Gastro-esophageal reflux disease without esophagitis (K21.9) Active confirmed Problem 788238301 Abdominal bloati ng (R14.0) Active confirmed Problem Hiccough (70106107) Hiccough (R06.6) Active confirmed Problem Nausea and vomiting (98381914) Nausea with vomiting, unspecified (R11.2) Active confirmed Problem 24866193 Rectal bleed (K62.5) Active confirmed Problem Erosive esophagitis (98866857) Erosive esophagitis (K22.10) Active confirmed Problem Belching (58608054) Belching (R14.2) Active confirmed Problem 49648750 Diarrhea, unspecified type (R19.7) Active confirmed Problem 52840239 Lymphocytic colitis (K52.832) Active confirmed Problem 424180886 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 Problem Nausea and vomiting (49561045) Nausea and vomiting, intractability of vomiting not specified, unspecified vomiting type (R11.2) Active confirmed Problem Acute vomiting (72541894) Acute vomiting (R11.10) Active confirmed Vital Signs Temperature 97.7 degrees Fahrenheit 03/21/2024 Blood pressure diastolic 77 mm Hg 06/26/2024 Height 71 in 06/26/2024 Blood pressure systolic 111 mm Hg 06/26/2024 Weight 199 lbs 06/26/2024 BMI 27.75 kg/m2 06/26/2024 Encounters Encounter Location Date Provider Diagnosis [facility] [address] [place] [address] 11/22/2023 Armin Jones Abdominal bloating R 14.0 ; Belching R14.2 ; Hiccough R06.6 and Acute vomiting R11.10 [facility] [place] [facility] [address] [place] [address] 03/21/2024 Armin Jones Hiccough R06.6 ; [place] and vomiting, intractability of vomiting not specified, unspecified vomiting type R11.2 and Lymphocytic colitis K52.832 [facility] [place] [facility] [address] [place] [address] 06/26/2024 Armin Jones Belching R14.2 ; Hiccough R06.6 and Nausea with vomiting, unspecified R11.2 [facility] [place] [facility] [address] [place] [address] 11/22/2023 Armin Jones [facility] [place] [facility] [address] [place] [address] 11/22/2023 Armin Jones [facility] [address] [place] [address] 12/05/2023 Armin Jones Nausea with vomiting , unspecified R11.2 [facility] [place] [facility] [address] [place] [address] 12/15/2023 Armin Jones [facility] [address] [place] [address] 12/22/2023 Armin Jones [facility] [address] [place] [address] 12/28/2023 Armin Jones [facility] [address] [place] [address] 02/20/2024 Armin Jones [facility] [address] [place] [address] 03/21/2024 Armin Jones [facility] [address] [place] [address] 05/08/2024 Armin Jones [facility] [address] [place] [address] 05/09/2024 Armin Jones [facility] [address] [place] [address] 05/19/2024 Armin Jones [facility] [address] [place] [address] 06/08/2024 [facility] [address] [place] [address] 07/09/2024 Armin De Luna [facility] [address] [place] [address] 08/30/2024 Armin Jones Assessments Encounter Date Diagnosis (ICD Code) Assessment Notes Treatment Notes Treatment Clinical Notes Section Notes 11/22/2023 Abdominal bloating (ICD-10 - R14.0) Stop [...] up with the surgeons Dr. Munroe at [facility] and Dr. Pearson at [facility] regarding question of hiatal hernia [...] Keep the appointment with the GI in [place] if need be. Overall, Al continues to [...] until he sees the GI doctors in [place] for their opinion before going through surgery [...] to keep you advised of his progress. 12/05/2023 Nausea with vomiting, unspecified (ICD-10 - R11.2) 11/22/2023 Hiccough (ICD-10 - R06.6) Overall, Manuel appears quite [...] bloat with difficulty belching. I did advise Manuel to let me know 1 way or the other what the plans are from Dr. Pearson. I did advise Al that it might not be a bad idea to wait until he sees the GI doctors in [place] for their opinion before going through surgery [...] until he sees the GI doctors in [place] for their opinion before going through surgery [...] Name:Armin Jones , 11/27/2024 10:40:00 AM, [address], [address], [place], [address], Insurance Providers Payer Name Payer Address Payer Phone Subscriber Number Group Number Insured Name Patient Relationship to Insured Coverage Start Date Coverage End Date MEDICAID OF [employer] [address] [place] [phone] [id number] LOGAN BOLAND Self - patient is the insured Medical (General) History Medical History History ICD Code PVC's COPD Chronic kidney disease stage 3 Hypertension Spinal meningitis as a child Denies [place],DM,CVA Lymphocytic colitis-diagnose d in June of 2018 [...]
[2024-11-12 16:26] LABS: Hematocrit 44.2 % (42.0-52.0); Hemoglobin 14.6 g/dl (14.0-18.0); Mean Corpuscular HGB Conc 33.0 g/dl (31.0-36.0); Mean Corpuscular Hemoglobin 30.4 pg (27.0-33.0); Mean Corpuscular Volume 91.9 fL (80.0-98.0); NRBC Abs Auto 0.000 X10*3/uL (0.0-0.012); NRBC Pct Auto 0.0 /100WBC (0.0-0.2); Platelet Count 318 X10*3/uL (160-400); Red Blood Count 4.81 X10*6/uL (4.60-5.80); White Blood Count 7.4 X10*3/uL (4.8-10.8)
[2024-11-12 16:57] LABS: Prostate Specific Antigen 3.41 ng/mL (<0.05-4.0)
== END 2024-11-12 13:27 | disposition home or self-care (01) ==
LOC: HO.HMGCLDS 13:26
PROVIDERS: PCP Internal Medicine; Visit Provider Urology
DX: E29.1 Testicular hypofunction (principal)
CPT/HCPCS: 36415; 84153; 84403; 85027

== ENCOUNTER 2024-11-23 13:27 | Outpatient (AMB) | payer MEDICAID, SELFPAY ==
--- NOTE | 2024-11-23 13:29 | MHC.OFFVIS ---
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 He is a patient of Dr. Daniel. He is seen for the following urologic conditions - hypogonadism - erectile dysfunction Marked plaque on dorsal surface penis Obtain ultrasound Up testosterone to 0.6 cc 2 times per week Refill provided Has been on trazodone for sleep and this is causing marked erections Discussed having dose as trazodone associated with priapism Penile fracture Delayed presentation Had been placed on tadalafil and pentoxifylline Recommended use of penile pump Hypogonadism He presents today for further evaluation of complaints regarding hypogonadism - on treatment from his PCP Initial symptoms include erectile dysfunction Yes decreased libido Yes change in mood/depression Yes in muscle size/strength Yes increased fatigue/malaise Yes The onset of symptoms has been gradual lb longstanding Erectile status nocturnal erections do occur but uses Viagra to supplement He has been taking - none Laboratory results 02/02 T 2130 with LH 0.3 - 03/06 T 1300, LH 0.3, 11/04 T 510 F 110 P 2.2, 02/03 971 P 2.2, 08/05 781 2.9 46, 02/04 739, 09/05 794 2.6, 03/09 1230 4.5 (Tuesday injection, labs), 05/07 38 3.3 44, 11/07 T 510 3.4 47, 05/08 421 96, 11/08 436 3.4 Current therapy includes injectable injectable testosterone - 12/04 0.75 cc weekly Tuesday Labs Response to therapy has been improved baseline symptoms Prior therapy includes injectable testosterone [facility] Medical History Personal history of tobacco use CKD (chronic kidney disease) stage 2, GFR 60-89 ml/min Hypertension PVC's (premature ventricular contractions) COPD (chronic obstructive pulmonary disease) History of meningitis Migraine Hypogonadism in male Surgical History History of colonoscopy History of repair of left rotator cuff History of repair of right rotator cuff Family History Father Liver disease Mother HTN (hypertension) Heavy smoker Heart disease Social History Patient Tobacco Use Status: Former Tobacco user Tobacco use type: Cigarette Cigarette Packs Per Day: 1 Years Smoked: 37, smoked 1-1.5 ppd, quit 13 years prior Substance Use Type: Marijuana Current occupational status: employed Current occupation: [employer] Review of Systems Const Denies chills and Denies fever(s) Card Reports no additional complaints and Denies syncope Resp Denies cough GI Denies abdominal pain and Denies heartburn Reports as per HPI and Denies change in libido Neuro Denies syncope Psych Denies change in libido Endo Denies change in libido Physical Exam Const General: cooperative, healthy appearing, comfortable and no acute distress Orientation/consciousness: patient oriented x3 HEENT Face and sinus: Yes normal facial exam Mouth: moist mucous membranes Neck Neck: Yes normal visual inspection, Yes full ROM and Yes trachea midline Chest Chest palpation & inspection: normal inspection of the chest Resp Effort & Inspection: normal respiratory effort, able to speak in complete sentences and no respiratory distress GI Inspection: Yes normal to inspection Back/Spine/Pelvis Cervical Spine: normal cervical lordosis Thoracic/Lumbar Spine: thoracic and lumbar spine normal to inspection Skin General skin exam: no rashes or lesions noted Neuro General: patient oriented x3, gait normal, tone normal and moves all extremities Extrem General: Yes normal to inspection and Yes capillary refill normal Assessment & Plan Assessment & Plan (1) Peyronie's disease: Code(s): N48.6 - Induration penis plastica Category: Medical (2) Hypogonadism in male: Code(s): E29.1 - Testicular hypofunction Category: Medical (3) Erectile dysfunction due to arterial insufficiency: Code(s): N52.01 - Erectile dysfunction due to arterial insufficiency Category: Medical Plan Six-month follow-up Mobic Orders: Orders US penile Today N48.6 - Induration penis plastica Testosterone, Total 5 Months N48.6 - Induration penis plastica Prostate Specific Antigen 5 Months N48.6 - Induration penis plastica Hematocrit 5 Months N48.6 - Induration penis plastica Medications: New needle (disp) 23 gauge (BD Regular [place]vel [place]) Inject testosterone subcutaneous 30 ea 0RF N48.6 - Induration penis plastica, R79.89 - Other specified abnormal findings of blood chemistry Changed From testosterone cypionate (Depo-Testosterone) Twice a week injection 70 mg (0.35 mL) subcut .BIW 30 days 4 mL 5RF N48.6 - Induration penis plastica To testosterone cypionate (Depo-Testosterone) Twice a week injection 120 mg (0.6 mL) subcut .BIW 6 mL 5RF 30 days N48.6 - Induration penis plastica Patient Instructions: This note is constructed using voice recognition software. While every effort has been made to ensure accuracy forest pathologist errors may have been included. Imaging studies, laboratory and physical exam results were discussed and reviewed in detail. No major barriers to patient understanding were identified. An opportunity to ask questions regarding the treatment plan was provided. All questions were answered. The patient expressed understanding and agreement with the above treatment plan. The patient is aware they should contact our office by phone for worsening of their current condition or the appearance of new urologic symptoms. Compliance is encouraged with any medications and followup testing that is ordered. It is a privilege to participate in the urologic care of your patient. If you have any questions or concerns regarding treatment for the above conditions, or other urologic issues, please do not hesitate to contact me. The office telephone contact is [phone]. Sincerely, Dr Diego Kennedy MD, [facility] - Urology Compassionate Specialist Care for the Genitourinary System Coding Level of Care Code Est Pt Level 4 (21747) Complex EM visit Add On G2211 Diagnoses Peyronie's disease N48.6 Hypogonadism in male E29.1 Erectile dysfunction due to arterial insufficiency N52.01
== END 2024-11-23 14:06 | disposition home or self-care (01) ==
LOC: HO.HUSH 13:27
PROVIDERS: PCP Internal Medicine; Visit Provider Urology
DX: N48.6 Induration penis plastica (principal); E29.1 Testicular hypofunction; N52.01 Erectile dysfunction due to arterial insufficiency
CPT/HCPCS: 99214

== ENCOUNTER → 2024-11-23 13:27 | Outpatient (BNVA) | payer MEDICAID, SELFPAY | PROVIDERS: PCP Internal Medicine; Visit Provider Urology | DX: N48.6 Induration penis plastica (principal); E29.1 Testicular hypofunction; N52.01 Erectile dysfunction due to arterial insufficiency | CPT/HCPCS: 99212 ==

== ENCOUNTER 2025-01-09 10:18 | Outpatient (REF) | payer MEDICAID, SELFPAY ==
[2025-01-09 13:58] LABS: MANUAL DIFF FLAG NO
[2025-01-09 14:06] LABS: Hematocrit 47.5 % (42.0-52.0); Hemoglobin 15.5 g/dl (14.0-18.0); Imm Gran Abs Auto 0.02 X10*3/uL (0.00-0.03); Imm Gran Pct Auto 0.3 % (0.0-0.4); Lymphocytes Absolute Auto 1.4 X10*3/uL (1.2-4.9); Mean Corpuscular HGB Conc 32.6 g/dl (31.0-36.0); Mean Corpuscular Hemoglobin 30.0 pg (27.0-33.0); Mean Corpuscular Volume 92.1 fL (80.0-98.0); NRBC Abs Auto 0.000 X10*3/uL (0.0-0.012); NRBC Pct Auto 0.0 /100WBC (0.0-0.2); Platelet Count 286 X10*3/uL (160-400); Red Blood Count 5.16 X10*6/uL (4.60-5.80); White Blood Count 7.0 X10*3/uL (4.8-10.8)
[2025-01-09 15:11] LABS: Alanine Aminotransferase 53 U/L (0-40); Albumin Level 4.2 g/dL (3.5-5.0); Alkaline Phosphatase 64 U/L (39-117); Anion Gap 11 (12-20); Aspartate Amino Transferase 47 U/L (5-37); Blood Urea Nitrogen 21 mg/dL (9-16); Calcium 9.2 mg/dL (8.4-10.2); Carbon Dioxide 29 mmol/L (22-29); Chloride 104 mmol/L (96-108); Cholesterol 163 mg/dL (<200); Estimated Glomerular Filt Rate > 60; HDL Cholesterol 37 mg/dL (>40); Potassium 4.2 mmol/L (3.3-5.1); Sodium 140 mmol/L (135-145); Total Protein 6.9 g/dL (6.5-8.0); Triglycerides 205 mg/dL (<150)
== END 2025-01-09 10:19 | disposition home or self-care (01) ==
LOC: HO.HMGCLDS 10:18
PROVIDERS: PCP Internal Medicine; Visit Provider Internal Medicine
DX: Z00.00 Encounter for general adult medical examination without abnormal findings (principal); G47.00 Insomnia, unspecified; I10 Essential (primary) hypertension; K51.90 Ulcerative colitis, unspecified, without complications; R06.6 Hiccough
CPT/HCPCS: 36415; 80053; 80061; 85025